=== PATIENT | female | born 1970 | race Caucasian/White ===

== ENCOUNTER 2020-10-08 07:40 | Outpatient (REF) | payer OTHER, SELFPAY ==
[2020-10-08 11:59] LABS: Hemoglobin 13.9 g/dl (12.0-16.0); Imm Gran Abs Auto 0.02 X10*3/uL (0.00-0.03); Imm Gran Pct Auto 0.3 % (0.0-0.4); Mean Corpuscular HGB Conc 32.3 g/dl (31.0-35.0); Mean Corpuscular Hemoglobin 29.4 pg (27.0-33.0); Mean Corpuscular Volume 90.9 fL (80-98); Neutrophils Percent Auto 59.6 % (45-73); Red Blood Count 4.73 X10*6/uL (4.20-5.50)
[2020-10-08 12:01] LABS: Basophils Percent Auto 0.5 % (0-2); Eosinophils Absolute Auto 0.3 X10*3/uL (0.0-0.4); Eosinophils Percent Auto 3.7 % (0-4); Lymphocytes Percent Auto 25.6 % (20-40); Monocytes Absolute Auto 0.8 X10*3/uL (0.1-1.2); Monocytes Percent Auto 10.3 % (2-11); Neutrophils Absolute Auto 4.6 X10*3/uL (2.0-8.3); Platelet Count 141 X10*3/uL (160-400); Red Cell Distribution Width 14.5 % (11.0-16.0); White Blood Count 7.8 X10*3/uL (4.8-10.8)
[2020-10-08 13:18] LABS: Alanine Aminotransferase 23 U/L (0-31); Albumin Level 4.1 g/dL (3.5-5.0); Alkaline Phosphatase 75 U/L (39-117); Anion Gap 11 (12-20); Aspartate Amino Transferase 20 U/L (5-31); Bilirubin Total 0.8 mg/dL (0.0-1.0); Blood Urea Nitrogen 16 mg/dL (9-16); Calcium 9.1 mg/dL (8.4-10.2); Carbon Dioxide 30 mmol/L (22-29); Chloride 106 mmol/L (96-108); Cholesterol 171 mg/dL; Estimated Glomerular Filt Rate > 60; Glucose Fasting 84 mg/dL (60-99); HDL Cholesterol 48 mg/dL; LDL Cholesterol Calculated 106 mg/dl; Lipase 39 U/L (8-78); Potassium 4.2 mmol/L (3.3-5.1); Sodium 143 mmol/L (135-145); TSH reflex Free T4 2.85 uIU/mL (0.32-4.0); Total Protein 7.1 g/dL (6.5-8.0); Triglycerides 89 mg/dL
== END 2020-10-08 07:41 | disposition home or self-care (01) ==
LOC: HO.HMGCLDS 07:40
PROVIDERS: PCP Nurse Practitioner Family; Visit Provider Nurse Practitioner Family
DX: R10.12 Left upper quadrant pain (principal); R53.83 Other fatigue
CPT/HCPCS: 36415; 80053; 80061; 83690; 84443; 85025

== ENCOUNTER 2020-10-20 09:18 | Outpatient (REF) | payer OTHER, SELFPAY ==
--- NOTE | ~2020-10-20 | XR_ITS ---
EXAMINATION: XR ABDOMEN WITH DECUBITUS VIEWS CLINICAL INDICATION: Abdominal distention COMPARISON: None TECHNIQUE: Supine and upright views of the abdomen and pelvis FINDINGS: There are no dilated loops of bowel or air-fluid levels to suggest obstruction. There is no evidence of free air. There is an IUD in the pelvis. There are no calcifications. The right lobe the liver appears prominent measuring 25 cm in length. There are mild degenerative changes of the lower lower lumbar spine and bilateral hips. XR/XR abdomen w decubitus IMPRESSION: No evidence of obstruction.
[2020-10-20 11:45] LABS: Free T4 (Free Thyroxine) 1.01 ng/dL (0.71-1.85)
[2020-10-21 07:58] LABS: HBsAGNum1 0.17 S/CO (0.00-0.99); HIV AB/AG Nonreactive (Nonreactive); HIV Num 1 0.05 S/CO (0.00-0.99); Hepatitis B Surface Antigen Negative (Negative)
[2020-10-21 08:59] LABS: HBc Num1 0.08 S/CO (0.00-0.79); Hepatitis B Core Antibody Nonreactive (Nonreactive); ~HepC Num1 0.21 S/CO (0.00-0.79); ~Hepatitis B Surface Antibody NONREACTIVE (Nonreactive); ~Hepatitis C Antibody Nonreactive (Nonreactive)
[2020-10-21 13:02] LABS: Alpha Fetoprotein 1.8 ng/mL
[2020-10-21 15:51] LABS: Transglutaminase Ab IgG 3 U/mL; Transglutaminase IgA 1 U/mL
[2020-10-21 17:06] LABS: Gliadin Deamidated IgA Ab 5 Units; Gliadin Deamidated IgG Ab 2 Units
[2020-10-22 07:53] LABS: ~Hepatitis A Antibody IgM Nonreactive (Nonreactive)
[2020-10-22 10:17] LABS: Mitochondrial Antibodies NEGATIVE (NEGATIVE)
[2020-10-23 13:31] LABS: Anti Nuclear Antibody Screen NEGATIVE (NEGATIVE)
[2020-10-27 10:37] LABS: Smooth Muscle Antibody <20 U (<20)
== END 2020-10-20 09:19 | disposition home or self-care (01) ==
LOC: HO.LAB 09:18
PROVIDERS: PCP Nurse Practitioner Family; Visit Provider Nurse Practitioner
DX: D69.6 Thrombocytopenia, unspecified (principal); R53.83 Other fatigue; R14.0 Abdominal distension (gaseous); R10.9 Unspecified abdominal pain; K64.1 Second degree hemorrhoids; K59.04 Chronic idiopathic constipation
CPT/HCPCS: 36415; 74021; 82105; 83516; 84439; 86038; 86039; 86255; 86256; 86704; 86706; 86709; 86803; 87340; 87389

== ENCOUNTER → 2020-11-03 15:41 | Outpatient (BNVA) | payer OTHER, SELFPAY | PROVIDERS: PCP Nurse Practitioner Family; Visit Provider Nurse Practitioner ==

== ENCOUNTER 2020-11-19 11:59 | Emergency (ER) | payer OTHER, SELFPAY ==
--- NOTE | ~2020-11-19 | CT_ITS ---
EXAMINATION: CT ANGIOGRAM OF THE CHEST WITH AND WITHOUT CONTRAST (CT PULMONARY ANGIOGRAM FOR PE) CLINICAL INFORMATION: Reason for Exam L sided pleuritic chest pain COMPARISON: Previous chest x-ray from earlier the same day and chest CTA March 2008 TECHNIQUE: Prior to contrast administration, noncontrast localization images were obtained. Subsequently, multidetector volumetric imaging was performed from the thoracic inlet to below the diaphragms following the administration of 70 mL Omnipaque 350 intravenous contrast. No contrast reaction reported Sagittal, coronal, and MIP oblique sagittal reformatted images were obtained on the CT workstation, uploaded to PACS, and reviewed. This CT examination was performed using dose optimization techniques as appropriate, variously including the following: *Automated exposure control *Adjustment of mA and/or kV according to patient size (this includes techniques or standardized protocols for targeted exams where dose is matched to indication/reason for exam; i.e. extremities or head) *Use of iterative reconstruction technique Total exam dose-length product 441 mGy-cm FINDINGS: QUALITY OF STUDY/CONTRAST BOLUS: Satisfactory. PULMONARY ARTERIES: No central or segmental pulmonary emboli. THORACIC AORTA: No aneurysm or dissection. LUNG: There is a small pulmonary nodule adjacent to the minor fissure measuring 4 mm in the right middle lobe axial image 229 series 7 that is stable This may represent a subpleural lymph node. The lungs are otherwise clear. PLEURA: No pleural effusion or pneumothorax. MEDIASTINUM: Normal heart size. No pericardial effusion. No hilar or mediastinal lymphadenopathy. No evidence of septal bowing or right heart strain. CHEST WALL/AXILLA: No axillary or internal mammary lymphadenopathy. OSSEOUS STRUCTURES: No acute or suspicious osseous abnormality. There are degenerative changes of the spine. There are median sternotomy wires. UPPER ABDOMEN: Unremarkable. No reflux of contrast into the hepatic veins to suggest elevated right heart pressures. CT/CT angio chest PE protocol IMPRESSION: No evidence of pulmonary embolism. Stable small 4 mm right middle lobe nodule probably representing a subpleural lymph node. VTE: negative
--- NOTE | ~2020-11-19 | XR_ITS ---
EXAMINATION: XR CHEST CLINICAL INFORMATION: Chest pain COMPARISON: Previous chest x-ray most recent November 2015 TECHNIQUE: Frontal view of the chest was obtained. FINDINGS: The heart does not appear enlarged. There are new median sternotomy wires. Hilar and mediastinal contours are unremarkable. The lungs are clear. There is no pleural effusion or pneumothorax. There is mild curvature of the lower thoracic spine to the right. XR/XR chest 1V IMPRESSION: No evidence for acute disease in the chest.
[2020-11-19 12:44] VITALS: BP 113/74; PULSE 71; RESP 18; TEMP 36.9; O2SAT 97; BMI 35.7
--- NOTE | 2020-11-19 12:48 | ECG_ITS ---
Test Reason : CP Blood Pressure : / mmHG Vent. Rate : 060 BPM Atrial Rate : 060 BPM P-R Int : 146 ms QRS Dur : 088 ms QT Int : 430 ms P-R-T Axes : 002 033 051 degrees QTc Int : 430 ms Normal sinus rhythm Normal ECG When compared with ECG of 23-NOV-2015 11:55, T wave inversion no longer evident in Inferior leads Referred By: Generic ED Physician Electronically Signed By:NAVI AQUINO MD
--- NOTE | 2020-11-19 13:30 | ED.CHESTPAIN ---
HPI - Chest Pain General Chief Complaint: Chest Pain Stated Complaint: chest pain Time Seen by Provider: 11/19/20 13:30 Source: patient Mode of arrival: ambulatory Limitations: no limitations History of Present Illness MD complaint: chest pain Pertinent past history: other (atrial myxoma) Onset (ago): day(s) (several but worse over past few) Timing of current episode: episodic Prior episodes: No Onset: during rest and during exertion Pain location: left chest Pain radiation: left arm Severity: moderate Quality: sharp Relieving factors: nothing Exacerbating factors: inspiration and movement Associated symptoms: dyspnea Treatment prior to arrival: none Related Data Home Medications Medication Instructions Recorded Confirmed amitriptyline 10 mg tablet 10 mg PO DAILY 10/06/20 10/06/20 sennosides 8.6 mg tablet 17.2 mg PO BEDTIME PRN 10/20/20 famotidine 10 mg tablet 20 mg PO DAILY tab 11/03/20 Previous Rx's Medication Instructions Recorded linaclotide 145 mcg capsule 145 mcg PO QAM 30 Days #30 cap 10/20/20 simethicone 180 mg capsule 180 mg PO QID 30 Days #120 cap 10/20/20 cyclobenzaprine 10 mg PO TID PRN #14 tab 11/19/20 lidocaine 1 patch TOPICAL DAILY PRN #10 ea 11/19/20 Allergies Allergy/AdvReac Type Severity Reaction Status Date / Time No Known Allergies Allergy Verified 11/19/20 12:44 [No Known Allergies*] Review of Systems Review of Systems: Constitutional : No Weight loss, No Fever, No Chills ENT/Mouth : No sore throat, No Rhinorrhea Eyes: No Eye Pain, No Swelling Cardiovascular : pos Chest Pain, pos SOB, no Dyspnea on Exertion, No Orthopnea, No Edema, No Palpitations Respiratory : No Cough, No Sputum Gastrointestinal : pos Nausea, No Vomiting, No Diarrhea, No abdominal Pain, No Hematochezia, No Melena Genitourinary : No Dysuria, No Urinary Frequency Musculoskeletal : No joint pain, No Myalgias, No Joint Swelling Skin : No Skin Lesions, No rash Neuro : No Weakness, No Numbness, No Dizziness, No Headache Psych : No Anxiety/Panic, No Depression Heme/Lymph: No Bruising, No Lymphadenopathy Endocrine : No Polyuria, No Polydipsia All other systems reviewed and are negative [facility] Past Medical History Attestation statement: The following information was validated with the patient. Medical History Right sided abdominal pain Surgical History H/O excision of mass (~03/16/16) History of ear surgery (~2015) History of open heart surgery (~03/16/16) Hx of section (~1986) Hx of colonoscopy (~05/2018) Family History Family History Mother CVD (cardiovascular disease) Obesity Father Colon polyp Daughter Thyroid disease Maternal Grandfather Stomach cancer Diabetes Social History Social History Alcohol intake: current Alcohol intake frequency: holidays/special occasions only Smoking Status: Never smoker Smoked in Last 30 Days: No Use of substances other than those prescribed or required for medical reasons: No Advance Directives: Yes Advance Directives Information Provided: Yes Advance Directives on File: No Physical Exam Vital Signs: Vital Signs: Last Vital Signs Temp 98.4 F 11/19/20 15:57 Pulse 63 11/19/20 15:57 Resp 16 11/19/20 15:57 BP 111/65 11/19/20 15:57 Pulse Ox 98 11/19/20 15:57 Body Mass Index 35.7 Appearance: Alert. Oriented X3. No acute distress. Eyes: Pupils equal, round and reactive to light. ENT: Pharynx normal. Neck: Normal inspection. Neck supple. CVS: Normal heart rate and rhythm. Pulses normal. Respiratory: No respiratory distress. Breath sounds normal. Abdomen: Soft and nontender. Skin: Skin warm and dry. Normal skin color. Normal skin turgor. Extremities: No lower extremity edema. No calf ttp Neuro: Oriented X 3. No motor deficit. No sensory deficit. Course Course Course Narrative: trop negative, EKG nonischemic anticipate DC if the patient has negative CTA, signed ot to Dr. Najera pending CTA results MDM - Chest Pain MDM Narrative Medical decision making narrative: 49 yo female with hx of gastrointestinal issues and atrial myxoma comes in today with c/o L sided pleuritic chest pain worsening over the past few days at this time will need labs, troponin x 1, CTA for PE - unable to reproduce - could be MSK could be PE could be pleurisy - seems atypical for ACS dispo per rseults and findings. Lab Data Result diagrams: 11/19/20 14:37 11/19/20 15:22 Labs: Lab Results 11/19/20 11/19/20 11/19/20 Range/Units 14:37 14:37 14:37 WBC 6.6 (4.8-10.8) X10*3/uL RBC 4.48 (4.20-5.50) X10*6/uL Hgb 13.2 (12.0-16.0) g/dl Hct 40.7 (37-47) % MCV 90.8 (80-98) fL MCH 29.5 (27.0-33.0) pg MCHC 32.4 (31.0-35.0) g/dl RDW 14.1 (11.0-16.0) % Plt Count 197 D (160-400) X10*3/uL MPV 12.4 H (9.4-12.3) fL Immature Gran % (Auto) 0.2 (0.0-0.4) % Neut % (Auto) 44.5 L (45-73) % Lymph % (Auto) 36.2 (20-40) % [facility] % (Auto) 14.0 H (2-11) % Eos % (Auto) 4.3 H (0-4) % Baso % (Auto) 0.8 (0-2) % Lymph # (Auto) 2.4 (1.2-4.9) X10*3/uL [facility] # (Auto) 0.9 (0.1-1.2) X10*3/uL Eos # (Auto) 0.3 (0.0-0.4) X10*3/uL Baso # (Auto) 0.1 (0.0-0.2) X10*3/uL Abs Immat Gran (auto) 0.01 (0.00-0.03) X10*3/uL Absolute Neuts (auto) 2.9 (2.0-8.3) X10*3/uL Absolute Nucleated RBC 0.000 (0.0-0.012) X10*3/uL Nucleated RBC % (auto) 0.0 (0.0-0.2) /100WBC Hold Blue Top SEE NOTE Sodium (135-145) mmol/L Potassium (3.3-5.1) mmol/L Chloride (96-108) mmol/L Carbon Dioxide (22-29) mmol/L Anion Gap (12-20) BUN (9-16) mg/dL Creatinine (0.5-1.4) mg/dL Estim Creat Clear Calc Estimated GFR Random Glucose (60-115) mg/dL Calcium (8.4-10.2) mg/dL Total Bilirubin Direct Bilirubin AST ALT Alkaline Phosphatase Troponin I High Sens < 3.5 (<3.5-17.0) ng/L Total Protein Albumin Lipase 11/19/20 11/19/20 Range/Units 14:37 15:22 WBC (4.8-10.8) X10*3/uL RBC (4.20-5.50) X10*6/uL Hgb (12.0-16.0) g/dl Hct (37-47) % MCV (80-98) fL MCH (27.0-33.0) pg MCHC (31.0-35.0) g/dl RDW (11.0-16.0) % Plt Count (160-400) X10*3/uL MPV (9.4-12.3) fL Immature Gran % (Auto) (0.0-0.4) % Neut % (Auto) (45-73) % Lymph % (Auto) (20-40) % [facility] % (Auto) (2-11) % Eos % (Auto) (0-4) % Baso % (Auto) (0-2) % Lymph # (Auto) (1.2-4.9) X10*3/uL [facility] # (Auto) (0.1-1.2) X10*3/uL Eos # (Auto) (0.0-0.4) X10*3/uL Baso # (Auto) (0.0-0.2) X10*3/uL Abs Immat Gran (auto) (0.00-0.03) X10*3/uL Absolute Neuts (auto) (2.0-8.3) X10*3/uL Absolute Nucleated RBC (0.0-0.012) X10*3/uL Nucleated RBC % (auto) (0.0-0.2) /100WBC Hold Blue Top Sodium 144 (135-145) mmol/L Potassium 4.1 (3.3-5.1) mmol/L Chloride 107 (96-108) mmol/L Carbon Dioxide 28 (22-29) mmol/L Anion Gap 13 (12-20) BUN 13 (9-16) mg/dL Creatinine 0.73 (0.5-1.4) mg/dL Estim Creat Clear Calc 117.8 Estimated GFR > 60 Random Glucose 90 (60-115) mg/dL Calcium 9.3 (8.4-10.2) mg/dL Total Bilirubin Cancelled 0.3 Direct Bilirubin Cancelled < 0.2 AST Cancelled 25 ALT Cancelled 53 H Alkaline Phosphatase Cancelled 96 D Troponin I High Sens (<3.5-17.0) ng/L Total Protein Cancelled 7.8 Albumin Cancelled 4.2 Lipase Cancelled 68 ECG Data ECG #1: Attestation: I personally reviewed and interpreted this ECG as follows: ECG interpretation date: 11/19/20 ECG interpretation time: 13:48 Interpretation: Rate: 60 Rhythm: NSR [place]: normal Normal P waves. Normal GEETA. Normal QRS complex. ST T wave : inverted V1, no AGNES qTC: normal prior studies: no sig ischemia The study has been interpreted contemporaneously by me. . Discharge Plan Discharge Clinical Impression: Atypical chest pain Patient Disposition: Home, Self-Care Instructions: Chest Pain (ED) Additional Instructions: return to ED for any worsening symptoms or concerns Prescriptions: New cyclobenzaprine 10 mg tablet 10 mg PO TID PRN (Reason: muscle spasm) Qty: 14 RF: 0 lidocaine 4 % adhesive patch,medicated 1 patch topical DAILY PRN (Reason: pain) Qty: 10 RF: 0 No Action amitriptyline 10 mg tablet 10 mg PO DAILY RF: 0 Linzess 145 mcg capsule 145 mcg PO QAM 30 Days Qty: 30 RF: 4 simethicone 180 mg capsule 180 mg PO QID 30 Days Qty: 120 RF: 4 famotidine [Pepcid AC] 10 mg tablet 20 mg PO DAILY RF: 0 Referrals: Brent Camarena, CIRCULATION DIRECTOR-BC [Primary Care Provider] - 2 days (if not better) Stand Alone Forms: Work/School Release
[2020-11-19 14:42] LABS: MANUAL DIFF FLAG NO
[2020-11-19 14:51] LABS: Basophils Absolute Auto 0.1 X10*3/uL (0.0-0.2); Basophils Percent Auto 0.8 % (0-2); Eosinophils Absolute Auto 0.3 X10*3/uL (0.0-0.4); Eosinophils Percent Auto 4.3 % (0-4); Hematocrit 40.7 % (37-47); Hemoglobin 13.2 g/dl (12.0-16.0); Imm Gran Abs Auto 0.01 X10*3/uL (0.00-0.03); Imm Gran Pct Auto 0.2 % (0.0-0.4); Lymphocytes Absolute Auto 2.4 X10*3/uL (1.2-4.9); Lymphocytes Percent Auto 36.2 % (20-40); Mean Corpuscular HGB Conc 32.4 g/dl (31.0-35.0); Mean Corpuscular Hemoglobin 29.5 pg (27.0-33.0); Mean Corpuscular Volume 90.8 fL (80-98); Mean Platelet Volume 12.4 fL (9.4-12.3); Monocytes Absolute Auto 0.9 X10*3/uL (0.1-1.2); Neutrophils Absolute Auto 2.9 X10*3/uL (2.0-8.3); Neutrophils Percent Auto 44.5 % (45-73); Platelet Count 197 X10*3/uL (160-400); Red Blood Count 4.48 X10*6/uL (4.20-5.50); Red Cell Distribution Width 14.1 % (11.0-16.0); White Blood Count 6.6 X10*3/uL (4.8-10.8)
[2020-11-19 15:14] LABS: Troponin-I High Sensitivity < 3.5 ng/L (<3.5-17.0)
[2020-11-19 15:55] LABS: Alanine Aminotransferase 53 U/L (0-31); Albumin Level 4.2 g/dL (3.5-5.0); Alkaline Phosphatase 96 U/L (39-117); Anion Gap 13 (12-20); Aspartate Amino Transferase 25 U/L (5-31); Bilirubin Direct < 0.2 mg/dL (0.0-0.5); Bilirubin Total 0.3 mg/dL (0.0-1.0); Blood Urea Nitrogen 13 mg/dL (9-16); Calcium 9.3 mg/dL (8.4-10.2); Carbon Dioxide 28 mmol/L (22-29); Chloride 107 mmol/L (96-108); Creatinine Clr Calc Pharmacy 117.8; Estimated Glomerular Filt Rate > 60; Glucose Random 90 mg/dL (60-115); Lipase 68 U/L (8-78); Potassium 4.1 mmol/L (3.3-5.1); Sodium 144 mmol/L (135-145); Total Protein 7.8 g/dL (6.5-8.0)
[2020-11-19 15:57] VITALS: BP 111/65; PULSE 60; PULSE 63; RESP 16; TEMP 36.9; O2SAT 98
[2020-11-19] MEDS: iohexoL 350 MG/ML 100 ML INFUS..BTL IV (16:54)
[2020-11-19] MEDS: Acetaminophen 325 MG TABLET 650 MG PO (17:11)
[2020-11-19 18:00] VITALS: BP 116/68; PULSE 64; RESP 16; TEMP 37.2; O2SAT 97
== END 2020-11-19 18:14 | disposition home or self-care (01) ==
PROVIDERS: Emergency Provider Emergency Medicine; PCP Nurse Practitioner Family
DX: R07.89 Other chest pain (principal)
CPT/HCPCS: 36415; 71045; 71275; 80048; 80076; 83690; 84484; 85025; 93005; 99284; 99285; Q9967

== ENCOUNTER → 2020-11-24 13:35 | Outpatient (BNVA) | payer OTHER, SELFPAY | PROVIDERS: PCP Nurse Practitioner Family; Visit Provider Physician Assistant ==

== ENCOUNTER 2020-12-17 08:01 | Outpatient (REF) | payer OTHER, SELFPAY ==
--- NOTE | ~2020-12-17 | US_ITS ---
EXAMINATION: US ABDOMEN LIMITED WITH LIVER ELASTOGRAPHY CLINICAL INFORMATION: Abdominal distention COMPARISON: Previous abdominal ultrasound most recent April 2018 TECHNIQUE: Real-time imaging of the abdominal viscera. Noninvasive ultrasound liver fibrosis assessment is performed using Harmony ElastPQ point quantification shear wave elastography (pSWE) with a C5-2 MHz transducer. Multiple elastography samples are obtained. FINDINGS: PANCREAS: The visualized pancreatic head and body are normal in appearance. The remainder of the pancreas is obscured from visualization by the overlying bowel gas. LIVER: Normal. The liver demonstrates normal size, contour and echogenicity. No focal lesion or intrahepatic biliary duct dilatation. The right lobe measures 15 cm in length. The left lobe measures 10 cm in length. Portal flow is normal/hepatopedal Shear wave liver elastography median stiffness is 1.4 m/s (reference: normal median stiffness is 1.3 m/s or less). IQR/median stiffness to assess sampling precision is 0.22 (reference: good quality data set is IQR/median stiffness of 0.15 or less). GALLBLADDER: Normal. The gallbladder is physiologically distended without evidence of stones, sludge, polyps, wall thickening or pericholecystic fluid. COMMON BILE DUCT: Normal in caliber measuring 0.7 cm in diameter. RIGHT KIDNEY: Normal. No hydronephrosis. No renal calculi or focal parenchymal lesions. The kidney measures 12.5 cm in maximum dimension. FREE FLUID: None. US/US abdomen padilla w elastography IMPRESSION: 1. Impression: Limited visualization of the tail the pancreas otherwise unremarkable exam. 2. Liver elastography: Limited due to sampling error. Liver stiffness does not suggest evidence of compensated advanced chronic liver disease. REFERENCE: Society of Radiologists in Ultrasound Liver Stiffness Thresholds (2020): LIVER STIFFNESS THRESHOLDS: *Liver Stiffness equal or less than 1.3 m/s: High probability of being normal. *Liver Stiffness less than 1.7 m/s: In the absence of other known clinical signs, rules out compensated advanced chronic liver disease. *Liver Stiffness 1.7-2.1 m/s: Suggestive of compensated advanced chronic liver disease but need further test for confirmation. *Liver Stiffness over 2.1 m/s: Rules in compensated advanced chronic liver disease. *Liver Stiffness over 2.4 m/s: Suggestive of clinically significant portal hypertension. QUALITY OF DATA SET: *IQR/Median value equal or less than 0.15 implies a quality data set. *IQR/Median value over 0.15 implies a poor quality data set. SIGNIFICANT CHANGE FROM PRIOR EXAM: Significant change if liver stiffness measurement is 10% or greater from prior exam. OTHER CONSIDERATIONS: The stage of liver fibrosis may be overestimated in the setting of acute hepatitis, liver inflammation, elevated liver function tests, hepatic vascular congestion, obstructive cholestasis, non-fasting state, and infiltrative diseases such as amyloidosis and lymphoma. In some patients with NAFLD, the liver stiffness thresholds for compensated advanced chronic liver disease may be lower. In causes other than viral hepatitis and NAFLD, liver stiffness thresholds are not well established.
== END 2020-12-17 08:02 | disposition home or self-care (01) ==
LOC: HO.US 08:01
PROVIDERS: Visit Provider Physician Assistant
DX: R10.12 Left upper quadrant pain (principal); R14.0 Abdominal distension (gaseous); R74.8 Abnormal levels of other serum enzymes
CPT/HCPCS: 76705; 76981

== ENCOUNTER 2020-12-27 17:15 | Emergency (ER) | payer OTHER, SELFPAY ==
--- NOTE | ~2020-12-27 | CT_ITS ---
EXAMINATION: CT ABDOMEN AND PELVIS WITHOUT CONTRAST CLINICAL INFORMATION: Mid abdominal pain COMPARISON: Ultrasound abdomen 12/17/2020 TECHNIQUE: Multidetector volumetric imaging was performed from the superior aspect of the liver through the pubic symphysis. Sagittal and coronal reformatted images were obtained on the technologist's workstation. This CT examination was performed using dose optimization techniques as appropriate, variously including the following: *Automated exposure control *Adjustment of mA and/or kV according to patient size (this includes techniques or standardized protocols for targeted exams where dose is matched to indication/reason for exam; i.e. extremities or head) *Use of iterative reconstruction technique DLP: 846 mGy-cm FINDINGS: LUNG BASES: The visualized lung bases are unremarkable. Bibasilar atelectasis is present. LIVER, GALLBLADDER, AND BILIARY TREE: The liver is normal in size, shape, and attenuation. No focal hepatic lesion or biliary ductal dilatation is present. The gallbladder is unremarkable with no evidence of radiopaque gallstones, gallbladder wall thickening, or obvious pericholecystic inflammatory changes. PANCREAS: Unremarkable. SPLEEN: Unremarkable. ADRENAL GLANDS: Unremarkable. KIDNEYS AND URETERS: The kidneys are normal in size, shape, and attenuation. No hydronephrosis, hydroureter, or calculi seen. No perinephric stranding. BLADDER: Unremarkable. GASTROINTESTINAL TRACT: The small and large bowel are unremarkable. A few scattered colonic diverticula are present The appendix is unremarkable. ABDOMINAL WALL: No significant hernia is appreciated. LYMPH NODES: No retroperitoneal lymphadenopathy. Small inguinal lymph nodes are present. VASCULAR: Unremarkable. PELVIC VISCERA: An anteverted uterus is present with an IUD in place. An abnormal adnexal mass or free intraperitoneal fluid is not seen. OSSEOUS STRUCTURES: Degenerative changes are present most marked at L3-S1. CT/CT abdomen pelvis wo con IMPRESSION: No significant abnormality.
[2020-12-27 17:20] VITALS: BP 146/91; PULSE 78; RESP 16; TEMP 36.9; O2SAT 97; BMI 34.0
--- NOTE | 2020-12-27 17:29 | ECG_ITS ---
Test Reason : CHEST PAIN Blood Pressure : / mmHG Vent. Rate : 072 BPM Atrial Rate : 072 BPM P-R Int : 166 ms QRS Dur : 094 ms QT Int : 406 ms P-R-T Axes : 028 042 053 degrees QTc Int : 444 ms Normal sinus rhythm Normal ECG When compared with ECG of 19-NOV-2020 12:56, No significant change was found Referred By: Jesus Najera Electronically Signed By:NAVI AQUINO MD
[2020-12-27 20:00] VITALS: BP 147/85; PULSE 79; RESP 18; O2SAT 99
--- NOTE | 2020-12-27 20:36 | ED.ABDPAIN ---
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 Denies any nausea vomiting or diarrhea no abdominal distension feels abdominal bloated patient is on Linzess amitriptyline and senna tablets for chronic constipation. No fever no chills no urinary symptoms patient been eating okay otherwise Related Data Home Medications Medication Instructions Recorded Confirmed amitriptyline 10 mg tablet 10 mg PO DAILY 10/06/20 11/24/20 sennosides 8.6 mg tablet 17.2 mg PO BEDTIME PRN 10/20/20 11/24/20 Previous Rx's Medication Instructions Recorded linaclotide 145 mcg capsule 145 mcg PO QAM 30 Days #30 cap 10/20/20 tramadol 50 mg PO Q6H PRN #20 tab 12/27/20 Allergies Allergy/AdvReac Type Severity Reaction Status Date / Time No Known Allergies Allergy Verified 11/24/20 13:35 [No Known Allergies*] Review of Systems Review of Systems Constitutional : No Weight loss, No Fever, No Chills ENT/Mouth : No sore throat, No Rhinorrhea Eyes: No Eye Pain, No Swelling Cardiovascular : No Chest Pain, no palpitations Respiratory : No Cough, No Sputum, no shortness of breath Gastrointestinal : no Nausea, No Vomiting, No Diarrhea, + abdominal Pain, no black stools Genitourinary : No Dysuria, No Urinary Frequency Musculoskeletal : No joint pain, No Myalgias, No Joint Swelling Skin : No Skin Lesions, No rash Neuro : No Weakness, No Numbness, No Dizziness, No Headache Psych : No Anxiety/Panic, No Depression Heme/Lymph: No Bruising, No Lymphadenopathy Endocrine : No Polyuria, No Polydipsia All other systems reviewed and are negative Physical Exam Vital Signs: Vital Signs: Last Vital Signs Temp 98.5 F 12/27/20 17:20 Pulse 79 12/27/20 20:00 Resp 18 12/27/20 20:00 BP 147/85 H 12/27/20 20:00 Pulse Ox 99 12/27/20 20:00 Body Mass Index 34.0 Appearance: Alert. Oriented X3. No acute distress. Eyes: PERRLA, No Nystagmus ENT: Pharynx normal. Oral Mucosa moist Neck: Normal inspection. Neck supple. CVS: Normal heart rate and rhythm. Pulses normal. Respiratory: No respiratory distress. Equal air entry bilateral, no wheezing/rales/rhonchi Abdomen: Soft, mild tenderness left upper quadrant and epigastric area no rebound tenderness or guarding Bowel sounds are present, no mass palpable, no CVA tenderness Skin: Skin warm and dry. Normal skin color. Normal skin turgor. Extremities: No lower extremity edema. No calf tenderness Neuro: Oriented X 3. No motor deficit. No sensory deficit. MDM - Abdominal Pain MDM Narrative Medical decision making narrative: Patient with chronic abdominal pain CT scan negative for any acute pathology labs are stable symptoms likely from IBS patient advised to follow-up with her electric melt operator advised to take tramadol along with her other medications Medical Records Attestation: I reviewed the patient's medical records. Lab Data Attestation: I reviewed the patient's lab results. Result diagrams: 12/27/20 21:25 12/27/20 22:00 Labs: Lab Results 12/27/20 12/27/20 Range/Units 21:25 22:00 WBC 9.8 (4.8-10.8) X10*3/uL RBC 4.69 (4.20-5.50) X10*6/uL Hgb 14.2 (12.0-16.0) g/dl Hct 42.3 (37-47) % MCV 90.2 (80-98) fL MCH 30.3 (27.0-33.0) pg MCHC 33.6 (31.0-35.0) g/dl RDW 14.0 (11.0-16.0) % Plt Count 157 L (160-400) X10*3/uL MPV 12.5 H (9.4-12.3) fL Immature Gran % (Auto) 0.2 (0.0-0.4) % Neut % (Auto) 65.4 (45-73) % Lymph % (Auto) 21.4 (20-40) % [place] % (Auto) 9.9 (2-11) % Eos % (Auto) 2.7 (0-4) % Baso % (Auto) 0.4 (0-2) % Lymph # (Auto) 2.1 (1.2-4.9) X10*3/uL [place] # (Auto) 1.0 (0.1-1.2) X10*3/uL Eos # (Auto) 0.3 (0.0-0.4) X10*3/uL Baso # (Auto) 0.0 (0.0-0.2) X10*3/uL Abs Immat Gran (auto) 0.02 (0.00-0.03) X10*3/uL Absolute Neuts (auto) 6.4 (2.0-8.3) X10*3/uL Absolute Nucleated RBC 0.000 (0.0-0.012) X10*3/uL Nucleated RBC % (auto) 0.0 (0.0-0.2) /100WBC Sodium 141 (135-145) mmol/L Potassium 4.0 (3.3-5.1) mmol/L Chloride 109 H (96-108) mmol/L Carbon Dioxide 25 (22-29) mmol/L Anion Gap 11 L (12-20) BUN 22 H D (9-16) mg/dL Creatinine 0.78 (0.5-1.4) mg/dL Estim Creat Clear Calc 109.7 Estimated GFR > 60 Random Glucose 101 (60-115) mg/dL Calcium 9.1 (8.4-10.2) mg/dL Total Bilirubin 0.5 (0.0-1.0) mg/dL Direct Bilirubin < 0.2 (0.0-0.5) mg/dL AST 15 (5-31) U/L ALT 15 (0-31) U/L Alkaline Phosphatase 78 (39-117) U/L Total Protein 7.0 (6.5-8.0) g/dL Albumin 3.9 (3.5-5.0) g/dL Lipase 56 (8-78) U/L Discharge Plan Discharge Clinical Impression: Abdominal pain Patient Disposition: Home, Self-Care Instructions: Abdominal Pain (ED) Additional Instructions: Etiology of your pain is not very clear likely IBS. Take tramadol for severe pain. Follow-up with your electric melt operator Prescriptions: New tramadol 50 mg tablet 50 mg PO Q6H PRN (Reason: pain) Qty: 20 RF: 0 No Action amitriptyline 10 mg tablet 10 mg PO DAILY RF: 0 sennosides 8.6 mg tablet 17.2 mg PO BEDTIME PRNRF: 0 Linzess 145 mcg capsule 145 mcg PO QAM 30 Days Qty: 30 RF: 4 Stand Alone Forms: Work/School Release Interventions: ED Discharge Assessment Last Done: 12/27/20 23:35 Discharge Date/Time: 12/27/20 23:36 [facility] Past Medical History Medical History Right sided abdominal pain Surgical History H/O excision of mass (~03/16/16) History of ear surgery (~2015) History of open heart surgery (~03/16/16) Hx of section (~1986) Hx of colonoscopy (~05/2018) Family History Family History Mother CVD (cardiovascular disease) Obesity Father Colon polyp Daughter Thyroid disease Maternal Grandfather Stomach cancer Diabetes Social History Social History Alcohol intake: current Alcohol intake frequency: a few times a month Alcohol type: beer Smoked in Last 30 Days: No Use of substances other than those prescribed or required for medical reasons: No Advance Directives: No Advance Directives Information Provided: No Patient : No
[2020-12-27] MEDS: Morphine Sulfate 4 MG/ML CARTRIDGE IVPUSH (21:26)
[2020-12-27] MEDS: ondansetron HCL 4 MG/2 ML VIAL IVPUSH (21:26)
[2020-12-27 21:32] LABS: MANUAL DIFF FLAG NO
[2020-12-27 21:38] LABS: Basophils Percent Auto 0.4 % (0-2); Eosinophils Absolute Auto 0.3 X10*3/uL (0.0-0.4); Eosinophils Percent Auto 2.7 % (0-4); Hematocrit 42.3 % (37-47); Hemoglobin 14.2 g/dl (12.0-16.0); Imm Gran Abs Auto 0.02 X10*3/uL (0.00-0.03); Imm Gran Pct Auto 0.2 % (0.0-0.4); Lymphocytes Absolute Auto 2.1 X10*3/uL (1.2-4.9); Lymphocytes Percent Auto 21.4 % (20-40); Mean Corpuscular HGB Conc 33.6 g/dl (31.0-35.0); Mean Corpuscular Hemoglobin 30.3 pg (27.0-33.0); Mean Corpuscular Volume 90.2 fL (80-98); Mean Platelet Volume 12.5 fL (9.4-12.3); Monocytes Percent Auto 9.9 % (2-11); Neutrophils Absolute Auto 6.4 X10*3/uL (2.0-8.3); Neutrophils Percent Auto 65.4 % (45-73); Platelet Count 157 X10*3/uL (160-400); Red Blood Count 4.69 X10*6/uL (4.20-5.50); White Blood Count 9.8 X10*3/uL (4.8-10.8)
[2020-12-27 22:38] LABS: Alanine Aminotransferase 15 U/L (0-31); Albumin Level 3.9 g/dL (3.5-5.0); Alkaline Phosphatase 78 U/L (39-117); Anion Gap 11 (12-20); Aspartate Amino Transferase 15 U/L (5-31); Bilirubin Direct < 0.2 mg/dL (0.0-0.5); Bilirubin Total 0.5 mg/dL (0.0-1.0); Blood Urea Nitrogen 22 mg/dL (9-16); Calcium 9.1 mg/dL (8.4-10.2); Carbon Dioxide 25 mmol/L (22-29); Chloride 109 mmol/L (96-108); Creatinine Clr Calc Pharmacy 109.7; Estimated Glomerular Filt Rate > 60; Glucose Random 101 mg/dL (60-115); Lipase 56 U/L (8-78); Sodium 141 mmol/L (135-145)
== END 2020-12-27 23:36 | disposition home or self-care (01) ==
PROVIDERS: Emergency Provider Internal Medicine; PCP Nurse Practitioner Family
DX: R10.12 Left upper quadrant pain (principal); Z79.899 Other long term (current) drug therapy
CPT/HCPCS: 36415; 74176; 80048; 80076; 83690; 85025; 93005; 96374; 96375; 99284; J2270; J2405

== ENCOUNTER → 2020-12-28 13:13 | Outpatient (BNVA) | payer OTHER, SELFPAY | PROVIDERS: PCP Nurse Practitioner Family; Referring Provider Nurse Practitioner Family; Visit Provider Nurse Practitioner Family ==

== ENCOUNTER → 2021-01-05 07:57 | Outpatient (REF) | payer OTHER, SELFPAY ==
--- NOTE | 2021-01-05 08:02 | CA_ITS ---
Acquisition Time: 2021-01-05 09:08:27 Total Exercise Time: 00:08:30 Test Indications: Chest Pain Medications: AMITRIPTYLLINE LINZESS TRAMADOL Protocol: CANDE Max HR: 148 BPM 87% of Pred: 169 BPM Max BP: 142/078 mmHG Max Work Load: 10.1 METS Exercise stress test with exercise 8 min 30 sec of Cande protocol, without anginal symptoms, without arrythmia, with normotensive response to exercise, without EKG changes meeting criteria for ischemia, with nonspecific ST abnormality without depression 4- 6 min recovery. Test reviewed with Dr Rojas. Referred By: Vicky Giordano Overread By: VICKY GIORDANO
--- NOTE | 2021-01-05 08:02 | CA_ITS ---
Transthoracic Echocardiogram Patient (Last, First, Middle): Judy Carpenter A Gender: Female Date of : 1970 Age: 50 Procedure Date: 01/05/2021 Procedure Type: Transthoracic Echocardiogram Location: OP Height: 175.26 cm Weight: 106.6 kg BSA: 2.21 m2 Heart Rate: bpm BP: 130 / 84 mmHg Lumber Tallier: MEENU Referring MD: Vicky Giordano RANCH RIDERWillem Symptoms: R53.83 - Other fatigue Study Quality: Fair ECG Rhythm: Sinus Conclusions: - The left ventricular systolic function is normal. The visually estimated ejection fraction is between 60-65%. - There is mild mitral valve regurgitation. Findings Left Ventricle Normal left ventricular cavity size. There is normal left ventricular wall thickness. The left ventricular systolic function is normal. The visually estimated ejection fraction is between 60-65%. There is no evidence of regional wall motion abnormalities. Diastolic function is normal for age. Right Ventricle Normal right ventricular cavity size and systolic function. Atria Both atria are normal in size. Aortic Valve The aortic valve was not well visualized. The aortic valve structure and function is likely normal. There is no aortic valve stenosis. There is no aortic valve regurgitation. Mitral Valve The mitral valve appears normal. There is mild mitral valve regurgitation. There is no mitral valve stenosis. Pulmonic Valve The pulmonic valve was not well visualized. Tricuspid Valve There is trace tricuspid valve regurgitation. The pulmonary artery systolic pressure is normal. Great Vessels The aortic annulus, sinuses of valsalva, asc aorta, and aortic arch are normal in size. Venous The inferior vena cava is normal in size and collapses greater than 50% with inspiration. Pericardium/Pleural There is no evidence of pericardial effusion. Prior Study Comparison No significant change compared to prior study dated: 05/26/2019. Measurements M-Mode Liner Measurements Normals - Women/Men AOV Cusps: 1.90 1.5-2.6 cm/m2 2D Linear Measurements IVSd: 0.74 0.6-0.9/0.6-1.0 cm LVIDd: 5.04 3.9-5.3/4.2-5.9 cm LVIDd Index: 2.28 2.4-3.2/2.2-3.1 cm/m2 LVIDs: 3.69 2.0-3.6 cm LVPWd: 0.78 0.7-1.1 cm Ao Root: 2.70 2.1-3.5 cm LA Diam: 3.90 2.7-3.8/3.0-4.0 cm LAIDs Index: 1.76 1.5-2.3 cm/m2 LV Mass: 161.25 67-162/88-224 g LV Mass Index: 72.97 43-95/49-115 g/m2 LVOT Diam: 2.00 3.0+(-)1.3 cm 2D Systolic Function EF 4C: 65.20 >55% EF 2C: 64.10 >55% EF BiP: 64.60 >55% Mitral Valve MV Pk E: 1.11 MV PK A: 0.48 MV Decel Time: 242.00 E/A: 2.30 E'Lateral: 15.10 E'Medial: 8.49 E/E' Med: 13.10 E/E' Lat: 7.40 PHT: 71.00 MVA PHT: 3.10 Decel [place]: 4.60 Aortic Valve AoV Pk Rik: 1.48 AoV Mn Rik: 1.11 AoV VTI: 0.38 AoV Pk Grad: 9.00 Aov Mn Grad: 5.00 SHALINI Cont.VTI: 2.13 LVOT LVOT Pk Rik: 1.04 LVOT Mn Rik: 0.77 LVOT VTI: 0.26 LVOT Pk Grad: 4.00 LVOT Mn Grad: 3.00 LVOT Diam: 2.00 LVOT Area: 3.14 Diastolic Function MV Pk E: 1.11 MV Pk A: 0.48 E/A: 2.30 E'Medial: 8.49 E/E' Med: 13.10 E' Laterial: 15.10 E/E' Lat: 7.40 Tricuspid Valve TR Pk Rik: 2.21 TR Pk Grad: 20.00 RA Press: 3.00 RVSP: 23.00 Great Vessels Aorta Ao Root-2D: 2.70 2.0-3.7 cm Ao Asc: 3.30 2.1-3.4 cm Ao Arch: 2.80 Pulmonary Valve PV Pk Rik: 1.14 Peak PV Grad: 5.00 Updated in Other Vendor System with Status of Final Ruslan Rojas MD electronically signed on 01/07/2021 1:48:08 PM with status of Final
--- NOTE | 2021-01-05 08:30 | ECG_ITS ---
Hook-up date: 2021-01-05 10:03:00 Duration: 27:04:00 Test Indications: palpitations Medications: [id number] QRS complexes 39 Ventricular ectopics which represent <1 % of total QRS comp. 58 Supraventricular ectopics which represent <1 % of total QRS comp. * Paced QRS complexs which represent % of total QRS comp. VENTRICULAR ECTOPY 39 Isolated 0 Bigeminal Cycles 0 Couplets 0 Runs 0 Beats in Runs * Beats LONGEST at * BPM at :: -- * Beats FASTEST at * BPM at :: -- SUPRAVENTRICULAR ECTOPY 46 Isolated 0 Couplets 2 Runs 12 Beats in Runs 6 Beats LONGEST at 66 BPM at 00:14:24 2021-01-06 6 Beats FASTEST at 168 BPM at 09:49:02 2021-01-06 HEART RATES 48 MIN at 02:56:31 2021-01-06 70 AVG 114 MAX at 10:03:39 2021-01-05 LONGEST RR 1.4320 secs at 02:56:25 2021-01-06 S-T LEVELS Channel 1 - 128 mm at 10:03:00 2021-01-05 - 128 mm at 10:03:00 2021-01-05 Channel 2 - 128 mm at 10:03:00 2021-01-05 - 128 mm at 10:03:00 2021-01-05 Channel 3 - 128 mm at 02:92:21 -- - 128 mm at 02:92:21 Underlying rhythm is sinus; Average ventricular rate 70/min; range 48-114/min; Rare supraventricular ectopy with 2 short runs, upto 6 beats; Rare ventricular ectopy; No sustained arrhythmias; Palpitation in patient diary correspond to sinus rhythm. Referred By: Vicky Giordano Overread By: MILIND COX
== END ==
LOC: HO.CARD 07:57
PROVIDERS: Visit Provider Nurse Practitioner Family
DX: R07.89 Other chest pain (principal); R00.2 Palpitations; R53.83 Other fatigue; Z98.890 Other specified postprocedural states
CPT/HCPCS: 93017; 93225; 93226; 93306

== ENCOUNTER → 2021-01-25 13:58 | Outpatient (BNVA) | payer OTHER, SELFPAY | PROVIDERS: Visit Provider Nurse Practitioner ==

== ENCOUNTER → 2021-01-28 12:48 | Outpatient (REF) | payer OTHER, SELFPAY ==
--- NOTE | ~2021-01-28 | NM_ITS ---
EXAMINATION: NUCLEAR MEDICINE HEPATOBILIARY SCAN WITH PHARMACY. CLINICAL INFORMATION: Right upper quadrant pain COMPARISON: CT abdomen and pelvis exam 12/31/2020 TECHNIQUE: Following intravenous administration of 5 mCi of 90 9M technetium mebrofenin, imaging over right arm was obtained after 60 minutes. At 60 minutes oral Ensure was administered and further imaging was obtained up to additional 60 minutes. FINDINGS: There is normal hepatic uptake without any focal defects. Common bile duct is visualized by 60 minutes. Small bowel is visualized by 20 minutes. Gallbladder is visualized at 40 minutes. Post CCK gallbladder ejection fraction at 20 minutes is 37% and by 60 minutes is 49%. NM/NM hepatobiliary wo pharm IMPRESSION: Abnormal gallbladder ejection fraction of 49% by 60 minutes consistent with dyskinetic gallbladder. Normal hepatic uptake. Patent CBD and cystic duct.
== END ==
LOC: HO.NUCMED 12:48
PROVIDERS: Visit Provider Nurse Practitioner
DX: R10.11 Right upper quadrant pain (principal)
CPT/HCPCS: 78226; A9537

== ENCOUNTER 2021-02-01 08:45 | Outpatient (REF) | payer OTHER, SELFPAY ==
[2021-02-01 10:13] LABS: C Reactive Protein 0.17 mg/dL (< or = 0.50)
== END 2021-02-01 08:46 | disposition home or self-care (01) ==
LOC: HO.LAB 08:45
PROVIDERS: Absent Provider Nurse Practitioner; PCP Nurse Practitioner Family; Referring Provider Nurse Practitioner Family; Visit Provider Internal Medicine
DX: R10.12 Left upper quadrant pain (principal); D15.1 Benign neoplasm of heart; I49.3 Ventricular premature depolarization; I49.1 Atrial premature depolarization; G47.33 Obstructive sleep apnea (adult) (pediatric)
CPT/HCPCS: 36415; 86140

== ENCOUNTER 2021-02-16 13:39 | Day surgery (SDC) | payer OTHER, SELFPAY ==
--- NOTE | 2021-02-15 11:53 | HO.ANESPROP2 ---
Documented by User: Dedra Trujillo 02/15/21 12:04 HPI - Anesthesia Eval Consult details Narrative: 50yo F for Upper Endoscopy Post-cardiac testing office visit 01/2021 (palpitations, h/o atrial myxoma): stable for 2 year f/u [facility] Active Problems Active Problems: All Active Problems (Updated 02/08/21 @ 12:30 by LINA Trejo) Acalculous cholecystitis (Acute) JUAN (obstructive sleep apnea) (Acute) PAC (premature atrial contraction) (Acute) PVC (premature ventricular contraction) (Acute) Atrial myxoma (Acute) RUQ abdominal pain (Acute) Family history of polyps in the colon (Acute) Depression (Acute) H/O excision of mass (Acute ~03/16/16) Chest discomfort (Acute) Palpitation (Acute) Abdominal bloating (Acute) Chronic idiopathic constipation (Acute) Grade II hemorrhoids (Acute) Thrombocytopenia (Acute) Fatigue (Acute) LUQ pain (Acute) Past Medical History Medical History (Updated 02/15/21 @ 11:57 by Dedra Trujillo) Atrial myxoma JUAN (obstructive sleep apnea) PVC (premature ventricular contraction) Right sided abdominal pain Thrombocytopenia Family History Family History Mother CVD (cardiovascular disease) Obesity Father Colon polyp Daughter Thyroid disease Maternal Grandfather Stomach cancer Diabetes Surgical History Surgical History H/O excision of mass (~03/16/16) History of ear surgery (~2015) History of open heart surgery (~03/16/16) Hx of section (~1986) Hx of colonoscopy (~05/2018) Social History Social History Housing: House Alcohol intake: current Alcohol intake frequency: a few times a month Alcohol type: beer Patient Tobacco Use Status: Never used Tobacco e-Cigarette/Vaping Use: Never Used Second Hand Smoke Exposure: No Use of substances other than those prescribed or required for medical reasons: No Are you DNR?: No Advance Directives: No Advance Directives Information Provided: Yes Current occupational status: employed Meds Allergies Allergy/AdvReac Type Severity Reaction Status Date / Time No Known Allergies Allergy Verified 02/01/21 08:54 [No Known Allergies*] Exam Exam Date and Time: February 15, 2021 1153 Pertinent Lab Results Pertinent Lab Results: Laboratory Tests 12/27/20 12/27/20 21:25 22:00 WBC 9.8 Hgb 14.2 Hct 42.3 Plt Count 157 L Sodium 141 Potassium 4.0 Chloride 109 H Carbon Dioxide 25 BUN 22 H D Creatinine 0.78 Narrative Narrative: Holter 12/2020 Underlying rhythm is sinus; Average ventricular rate 70/min; range 48-114/min; Rare supraventricular ectopy with 2 short runs, upto 6 beats; Rare ventricular ectopy; No sustained arrhythmias; Palpitation in patient diary correspond to sinus rhythm. EKG 12/2020 Vent. Rate : 072 BPM Atrial Rate : 072 BPM P-R Int : 166 ms QRS Dur : 094 ms QT Int : 406 ms P-R-T Axes : 028 042 053 degrees QTc Int : 444 ms Normal sinus rhythm Normal ECG When compared with ECG of 19-NOV-2020 12:56, No significant change was found ECHO 12/2020 Conclusions: - The left ventricular systolic function is normal. The visually estimated ejection fraction is between 60-65%. - There is mild mitral valve regurgitation. Stress 12/2020 Protocol: EFRAIN Max HR: 148 BPM 87% of Pred: 169 BPM Max BP: 142/078 mmHG Max Work Load: 10.1 METS Exercise stress test with exercise 8 min 30 sec of Efrain protocol, without anginal symptoms, without arrythmia, with normotensive response to exercise, without EKG changes meeting criteria for ischemia, with nonspecific ST abnormality without depression 4- 6 min recovery. Test reviewed with Dr Rojas. Assessment and Plan Assessment Anesthesia Assessment: Chart Reviewed Documented by User: Julianna Wyatt 02/16/21 14:18 [facility] Past Medical History Medical History (Updated 02/15/21 @ 11:57 by Dedra Trujillo) Atrial myxoma JUAN (obstructive sleep apnea) PVC (premature ventricular contraction) Right sided abdominal pain Thrombocytopenia Family History Family History Mother CVD (cardiovascular disease) Obesity Father Colon polyp Daughter Thyroid disease Maternal Grandfather Stomach cancer Diabetes Surgical History Surgical History H/O excision of mass (~03/16/16) History of ear surgery (~2015) History of open heart surgery (~03/16/16) Hx of section (~1986) Hx of colonoscopy (~05/2018) Social History Social History Housing: House Alcohol intake: current Alcohol intake frequency: a few times a month Alcohol type: beer Patient Tobacco Use Status: Never used Tobacco e-Cigarette/Vaping Use: Never Used Second Hand Smoke Exposure: No Use of substances other than those prescribed or required for medical reasons: No Are you DNR?: No Advance Directives: No Advance Directives Information Provided: Yes Current occupational status: employed Meds Allergies Allergy/AdvReac Type Severity Reaction Status Date / Time No Known Allergies Allergy Verified 02/01/21 08:54 [No Known Allergies*] Exam Airway Mallampati Class: I TM Dist: >3cm Neck ROM: Full Heart: rrr Lungs: cta Assessment and Plan Assessment Anesthesia Assessment: Anesthesia Plan Discussed and Chart Reviewed Final Anesthetic Review NPO: Yes ASA Class: II Final Preanesthetic Review: No Changes in Pt Med Stat, Meds/Allgs Chart Reviewed and Consent Obtained/Reviewed Patient Risk: Intermediate Procedure Risk: Intermediate Anesthetic Plan Anesthetic Plan: MAC: Disposition: Standard PACU
[2021-02-16 13:52] VITALS: BP 129/82; PULSE 61; RESP 16; TEMP 36.2; O2SAT 96; BMI 34.7
[2021-02-16] MEDS: Lactated Ringers 1,000 ML 100 ML IVCONT (14:01)
--- NOTE | 2021-02-16 14:10 | MHC.SHP ---
Pre-Procedural Eval Section A Date of Service: 02/16/21 Section B Chief Complaint: abd pain Relevant Family History (Specify if Yes): No Relevant Social History: None Present Medications: see Short Stay Collaborative assessment Medical History: Significant History (Atrial myxoma JUAN (obstructive sleep apnea) PVC (premature ventricular contraction) Right sided abdominal pain Thrombocytopenia) History of Previous Operations: Relevant previous surgery/procedure and date(s) (H/O excision of mass (~03/16/16) History of ear surgery (~2015) History of open heart surgery (~03/16/16) Hx of section (~1986) Hx of colonoscopy (~05/2018)) Allergies: Allergies Allergy/AdvReac Type Severity Reaction Status Date / Time No Known Allergies Allergy Verified 02/01/21 08:54 [No Known Allergies*] Review of Systems Sugical H&P ROS: Negative: Constitution, Cardiovascular, Respiratory, Neurological, Psychiatric, Hem-Onc, Allergic/Immunologic, Gastrointestinal, Genitourinary, Musculoskeletal, Integumentary, Endocrine and Eyes/Ears/Nose/Throat Exam Surgical H&P Exam: Normal: HEENT, Normal: Heart, Normal: Lungs, Normal: Extremities, Normal: Abdomen, Normal: Skin and Normal: Neurological Plan Diagnosis/Plan: Unchanged I have reviewed the history and physical and performed a pertinent physical examination on my patient. No changes have occurred unless specified.
--- NOTE | 2021-02-16 14:11 | PM.OP ---
Brief Operative Note Date of Service: 02/16/21 Pre-op diagnosis: left abdo pain Post-op diagnosis: same Procedure: see op note Surgeon: Martha Grijalva MD Anesthesia: MAC Was an Software Tools Developer used for this Procedure?: No Estimated blood loss (mL): 0 Condition: stable Disposition: PACU
--- NOTE | 2021-02-16 14:27 | W.PM.OPN ---
Operative Note Operative Note Date of Service: 02/16/21 Narrative: Procedure Description: EGD FLEXIBLE TRANSORAL UPPER GASTROINTESTINAL ENDOSCOPY UPPER ENDOSCOPY Consent: Indications for the procedure and potential complications of bleeding, perforation, reaction to medications and missed diagnosis were discussed with the patient and informed consent was obtained. Instrument: Olympus GIF H 190 J mid size upper endoscope Monitoring: Vital signs and clinical assessment, continuous EKG monitoring, Pulse oximetry, Carbon Dioxide monitoring and blood pressure monitoring were done throughout the procedure. Procedure: The patient was placed in the left lateral decubitis position and pre-procedure medications were administered and a bite block was placed. The endoscope was inserted into the mouth and advanced under direct vision to the third part of duodenum. A careful inspection was made as the upper endoscope was withdrawn including a retroflexed examination of the proximal stomach; Findings and interventions are described below. Findings: Larynx:normal Esophagus: GE junction at 40 cm, diaphragm hiatus at 40 cm, mild esophagitis bx taken from GEJ and random esophagus. Stomach: Patchy gastric erythema. Biopsies were obtained. Grade 2 flap valve on retroflexed examination of the cardia. Duodenum: Mild bulbar duodenitis and normal descending duodenum, bx taken Intervention: Biopsies as noted above Impression/Findings: gastritis duodenitis esophagitis PLAN: If neg for H pylori then trial of PPI, if sx persist then GES to r/o gastroparesis
[2021-02-16 14:55] VITALS: BP 121/75; PULSE 63; RESP 14; TEMP 36.2; O2SAT 98
[2021-02-16 15:10] VITALS: BP 129/80; PULSE 59; RESP 16; O2SAT 98
[2021-02-16 15:15] VITALS: PULSE 54; RESP 16; O2SAT 100
[2021-02-16 15:25] VITALS: BP 127/76; PULSE 56; RESP 16; O2SAT 99
[2021-02-16 15:40] VITALS: BP 124/74; PULSE 63; RESP 16; O2SAT 98
--- NOTE | 2021-02-16 16:14 | PC.NURSE ---
1615 PT WAS GIVEN 4MG ZOFRAN AT 1525 BY THIS RN , WRIITTEN ORDER WAS FAXED TO PHARMACY. MED NOT IN MAR BY PHARMACY UNTIL 1545, THIS RN DOCUMENTED AT 1553 AND ATTEMPTED TO EDIT FOR TIME UNABLE TO DO SO, CALL TO PHARMACY, THEY ARE UNABLE TO DO ANYTHING CALL TO [facility], LEFT MESSAGE WITH PERSON WHO OVERSEES THIS COMPUTER PROGRAM.
== END 2021-02-16 16:10 | disposition home or self-care (01) ==
PROVIDERS: PCP Nurse Practitioner Family; Visit Provider Internal Medicine Gastroenterology
PROC: 0DJ08ZZ Inspection of Upper Intestinal Tract, Via Natural or Artificial Opening Endoscopic (ICD-10-PCS; CPT 43235; principal; 2021-02-16 14:40)
DX: K20.80 Other esophagitis without bleeding (principal); K29.70 Gastritis, unspecified, without bleeding; K29.80 Duodenitis without bleeding; K44.9 Diaphragmatic hernia without obstruction or gangrene; K59.04 Chronic idiopathic constipation; D69.6 Thrombocytopenia, unspecified; R53.83 Other fatigue
CPT/HCPCS: 43239; 88305; 88342; J2405

== ENCOUNTER → 2021-03-09 14:25 | Outpatient (BNVA) | payer OTHER, SELFPAY | PROVIDERS: PCP Nurse Practitioner Family; Referring Provider Nurse Practitioner; Visit Provider Surgery ==

== ENCOUNTER → 2021-03-15 14:16 | Outpatient (BNVA) | payer OTHER, SELFPAY | PROVIDERS: PCP Nurse Practitioner Family; Visit Provider Nurse Practitioner ==

== ENCOUNTER → 2021-04-19 07:43 | Outpatient (REF) | payer OTHER, SELFPAY ==
--- NOTE | ~2021-04-19 | NM_ITS ---
EXAMINATION: RADIONUCLIDE SOLID FOOD GASTRIC EMPTYING 4-HOUR STUDY CLINICAL INFORMATION: Left upper quadrant pain. COMPARISON: No previous gastric emptying study is available for comparison. TECHNIQUE: A standard meal consisting of 4 oz of Egg Beaters brand equivalent tagged with 890 microcuries Tc-99m Sulfur Colloid, 8 oz water and 2 slices of toast with jelly was administered orally to the patient. Images were obtained using a dual head gamma camera in the anterior and posterior projections over of the stomach immediately post ingestion and at hourly intervals up to 4 hours post ingestion. The anterior and posterior counts at each time interval were averaged using the geometric mean and expressed as percentage of the immediate post ingestion counts. FINDINGS: There is good visualization of activity in the stomach immediately post ingestion. As the study progresses, there is some progressively increasing small bowel activity visualized, but at the end of the study there is moderately severe abnormal retention of activity in the stomach. Retention in the stomach at each time interval was: 1 hour 78% (normal 37%-90%) 2 hours 38% (normal 30%-60%) 3 hours 45% 4 hours 31% (normal 0%-10%) NM/NM gastric emptying study IMPRESSION: Abnormal study. There is moderately severe abnormal retention of solid food in the stomach at 4 hours.
== END ==
LOC: HO.NUCMED 07:43
PROVIDERS: Visit Provider Nurse Practitioner
DX: R10.12 Left upper quadrant pain (principal); R91.1 Solitary pulmonary nodule
CPT/HCPCS: 78264; A9541

== ENCOUNTER → 2021-04-25 15:37 | Outpatient (BNVA) | payer OTHER, SELFPAY | PROVIDERS: PCP Nurse Practitioner Family; Visit Provider Nurse Practitioner ==

== ENCOUNTER → 2021-05-23 16:20 | Outpatient (BNVA) | payer OTHER, SELFPAY | PROVIDERS: PCP Nurse Practitioner Family; Visit Provider Nurse Practitioner ==

== ENCOUNTER → 2021-11-28 11:47 | Outpatient (BNVA) | payer OTHER, SELFPAY | PROVIDERS: PCP Nurse Practitioner Family; Referring Provider Nurse Practitioner Family; Visit Provider Internal Medicine Gastroenterology | DX: Z13.89 Encounter for screening for other disorder (principal) ==

== ENCOUNTER 2022-01-02 07:49 | Outpatient (REF) | payer OTHER, SELFPAY ==
[2022-01-02 08:05] LABS: MANUAL DIFF FLAG NO
[2022-01-02 08:43] LABS: Basophils Absolute Auto 0.1 X10*3/uL (0.0-0.2); Basophils Percent Auto 0.8 % (0-2); Eosinophils Absolute Auto 0.2 X10*3/uL (0.0-0.4); Eosinophils Percent Auto 3.6 % (0-4); Hematocrit 43.7 % (37.0-47.0); Hemoglobin 14.3 g/dl (12.0-16.0); Imm Gran Abs Auto 0.01 X10*3/uL (0.00-0.03); Imm Gran Pct Auto 0.2 % (0.0-0.4); Lymphocytes Absolute Auto 1.9 X10*3/uL (1.2-4.9); Lymphocytes Percent Auto 30.1 % (20-40); Mean Corpuscular HGB Conc 32.7 g/dl (31.0-35.0); Mean Corpuscular Hemoglobin 29.5 pg (27.0-33.0); Mean Corpuscular Volume 90.1 fL (80.0-98.0); Monocytes Absolute Auto 0.7 X10*3/uL (0.1-1.2); Monocytes Percent Auto 10.8 % (2-11); Neutrophils Absolute Auto 3.4 x10*3/uL (2.0-8.3); Neutrophils Percent Auto 54.5 % (45-73); Platelet Count 173 X10*3/uL (160-400); Red Blood Count 4.85 X10*6/uL (4.20-5.50); White Blood Count 6.2 X10*3/uL (4.8-10.8)
[2022-01-02 09:06] LABS: Alanine Aminotransferase 24 U/L (0-31); Albumin Level 4.1 g/dL (3.5-5.0); Alkaline Phosphatase 80 U/L (39-117); Anion Gap 11 (12-20); Aspartate Amino Transferase 20 U/L (5-31); Bilirubin Total 0.7 mg/dL (0.0-1.0); Blood Urea Nitrogen 20 mg/dL (9-16); Calcium 9.5 mg/dL (8.4-10.2); Carbon Dioxide 25 mmol/L (22-29); Chloride 107 mmol/L (96-108); Cholesterol 193 mg/dL; Estimated Glomerular Filt Rate > 60; Glucose Fasting 92 mg/dL (60-99); HDL Cholesterol 45 mg/dL; LDL Cholesterol Calculated 133 mg/dl; Potassium 4.4 mmol/L (3.3-5.1); Sodium 139 mmol/L (135-145); Total Protein 7.4 g/dL (6.5-8.0); Triglycerides 76 mg/dL
[2022-01-02 09:12] LABS: Appearance Urine CLEAR; Color Urine YELLOW; Glucose Urine UA NEG (NEG); Leukocyte Esterase Urine 1+ (NEG); Nitrite Urine NEG (NEG); PH 5.5 (5.0-8.0); Specific Gravity - Urine >= 1.030 (1.005-1.025); UACC Culture Trigger YES; Urine Blood NEG (NEG); Urine Ketones NEG (NEG); Urine Protein NEG (NEG-TRACE)
[2022-01-02 09:31] LABS: TSH reflex Free T4 2.61 uIU/mL (0.32-4.0)
[2022-01-02 09:55] LABS: Squamous Epithelial Cell Urine 2+ /LPF
[2022-01-02 09:56] LABS: Bacteria Urine 1+ /LPF
== END 2022-01-02 07:50 | disposition home or self-care (01) ==
LOC: HO.LAB 07:49
PROVIDERS: PCP Nurse Practitioner Family; Visit Provider Nurse Practitioner Family
DX: R07.89 Other chest pain (principal); K30 Functional dyspepsia; R10.9 Unspecified abdominal pain; R94.8 Abnormal results of function studies of other organs and systems
CPT/HCPCS: 36415; 80053; 80061; 81001; 84443; 85025; 87086

== ENCOUNTER 2022-01-10 08:30 | Outpatient (REF) | payer OTHER, SELFPAY ==
[2022-01-10 11:33] LABS: Appearance Urine CLEAR; Color Urine YELLOW; Glucose Urine UA NEG (NEG); Leukocyte Esterase Urine 1+ (NEG); Nitrite Urine NEG (NEG); PH 5.5 (5.0-8.0); Specific Gravity - Urine 1.025 (1.005-1.025); Urine Blood NEG (NEG); Urine Ketones NEG (NEG); Urine Protein NEG (NEG-TRACE)
[2022-01-10 11:55] LABS: RBC Urine 0 /HPF (0); Squamous Epithelial Cell Urine TRACE /LPF; WBC Urine 0-2 /HPF (0-4)
== END 2022-01-10 08:31 | disposition home or self-care (01) ==
LOC: HO.HMGCLDS 08:30
PROVIDERS: PCP Nurse Practitioner Family; Visit Provider Nurse Practitioner Family
DX: R30.0 Dysuria (principal)
CPT/HCPCS: 81001; 87086

== ENCOUNTER 2022-01-16 10:04 | Outpatient (REF) | payer OTHER, SELFPAY ==
--- NOTE | ~2022-01-16 | XR_ITS ---
EXAMINATION: XR HIP, RIGHT CLINICAL INFORMATION: Pain right hip COMPARISON: None TECHNIQUE: Two views of the right hip. AP pelvis one view FINDINGS: AP pelvis and right hip: There is normal symmetry of bilateral SI joints and hip joints. There is an IUD in the pelvis. No fracture involving the pelvic bones. The soft tissues are normal. AP and frog-leg views right hip reveals maintained right hip joint space without bony erosive changes. No visible acute fracture or dislocation seen. There are small enthesophytes along the greater trochanter. The soft tissues are normal. XR/XR hip RT w PEL1V IMPRESSION: Unremarkable AP pelvis and right hip. Especially there is no visible acute fracture or dislocation. Small enthesophyte along the greater trochanter.
== END 2022-01-16 10:05 | disposition home or self-care (01) ==
LOC: HO.HMGCX 10:04
PROVIDERS: PCP Nurse Practitioner Family; Visit Provider Physician Assistant
DX: M25.551 Pain in right hip (principal)
CPT/HCPCS: 73502

== ENCOUNTER 2022-02-09 14:40 | Outpatient (REF) | payer OTHER, SELFPAY ==
--- NOTE | ~2022-02-09 | XR_ITS ---
EXAMINATION: XR CHEST 2 VIEWS CLINICAL INFORMATION: Chronic cough. COMPARISON: Chest radiograph dated 11/19/2020. TECHNIQUE: Frontal and lateral views of the chest were obtained. FINDINGS: The heart, great vessels, pulmonary vasculature and mediastinum are normal. There are intact median sternotomy wires. The lungs show no focal infiltrate, effusion or pneumothorax. There is no acute osseous abnormality. There is mild thoracic spondylosis. XR/XR chest 2V IMPRESSION: No active cardiopulmonary disease.
--- NOTE | ~2022-02-09 | XR_ITS ---
EXAMINATION: XR SINUSES CLINICAL INFORMATION: Sinusitis COMPARISON: None TECHNIQUE: 4 views of the sinuses were obtained. FINDINGS: Paranasal sinuses appear clear without air-fluid levels. No fractures are identified. No radiodense foreign bodies. XR/XR sinus min 3V IMPRESSION: Unremarkable examination.
== END 2022-02-09 14:41 | disposition home or self-care (01) ==
LOC: HO.XRAY 14:40
PROVIDERS: PCP Nurse Practitioner Family; Visit Provider Nurse Practitioner Family
DX: R05.9 Cough, unspecified (principal); J32.9 Chronic sinusitis, unspecified
CPT/HCPCS: 70220; 71046

== ENCOUNTER 2022-08-11 15:59 | Outpatient (REF) | payer OTHER, SELFPAY ==
--- NOTE | ~2022-08-11 | XR_ITS ---
EXAMINATION: XR CHEST CLINICAL INFORMATION: Contusion from wall of thorax COMPARISON: None TECHNIQUE: 2 views of the chest were obtained. FINDINGS: Lungs are well expanded and clear. No pneumothorax or pleural effusion. Cardiac silhouette has normal size and contour. Sternotomy wires are intact. The visualized bones are intact. No rib fractures are seen within the included [id number]. Thoracic vertebra have well preserved height and alignment. XR/XR chest 2V IMPRESSION: No acute pulmonary disease.
== END 2022-08-11 16:00 | disposition home or self-care (01) ==
LOC: HO.HMGCX 15:59
PROVIDERS: PCP Nurse Practitioner Family; Visit Provider Internal Medicine
DX: S20.219A Contusion of unspecified front wall of thorax, initial encounter (principal); X58.XXXA Exposure to other specified factors, initial encounter; Y93.9 Activity, unspecified; Y92.9 Unspecified place or not applicable; Y99.9 Unspecified external cause status
CPT/HCPCS: 71046

== ENCOUNTER → 2022-10-25 08:55 | Outpatient (BNVA) | payer OTHER, SELFPAY | PROVIDERS: PCP Nurse Practitioner Family; Visit Provider Physician Assistant Surgical | DX: Z13.89 Encounter for screening for other disorder (principal) ==

== ENCOUNTER 2022-10-31 15:00 | Outpatient (REF) | payer OTHER, SELFPAY ==
[2022-11-03 12:15] LABS: H Pylori Breath Test Negative (Negative)
== END 2022-10-31 15:01 | disposition home or self-care (01) ==
LOC: HO.LNP 15:00
PROVIDERS: Visit Provider Physician Assistant Surgical
DX: E66.9 Obesity, unspecified (principal); Z11.0 Encounter for screening for intestinal infectious diseases
CPT/HCPCS: 83013

== ENCOUNTER → 2022-10-31 15:00 | Outpatient (BNVA) | payer OTHER, SELFPAY | PROVIDERS: PCP Nurse Practitioner Family; Visit Provider Physician Assistant Surgical | DX: Z13.89 Encounter for screening for other disorder (principal) ==

== ENCOUNTER 2022-11-06 08:17 | Outpatient (REF) | payer OTHER, SELFPAY ==
--- NOTE | ~2022-11-06 | XR_ITS ---
EXAMINATION: XR CHEST CLINICAL INFORMATION: Bariatric service evaluation. E66.9. COMPARISON: Chest radiographs 08/11/2022, 02/09/2022 TECHNIQUE: 2 views of the chest were obtained. FINDINGS: There has been prior median sternotomy. Heart size normal. No vascular congestion, infiltrate, or effusion. Costophrenic sulci are clear. The hilar and mediastinal contours and bony structures are stable. XR/XR chest 2V IMPRESSION: No acute intrathoracic disease.
[2022-11-06 08:31] LABS: MANUAL DIFF FLAG NO
[2022-11-06 08:35] LABS: Basophils Absolute Auto 0.1 X10*3/uL (0.0-0.2); Basophils Percent Auto 0.9 % (0-2); Eosinophils Absolute Auto 0.2 X10*3/uL (0.0-0.4); Eosinophils Percent Auto 4.2 % (0-4); Hematocrit 41.8 % (37.0-47.0); Hemoglobin 13.8 g/dl (12.0-16.0); Imm Gran Abs Auto 0.02 X10*3/uL (0.00-0.03); Imm Gran Pct Auto 0.4 % (0.0-0.4); Lymphocytes Absolute Auto 2.1 X10*3/uL (1.2-4.9); Lymphocytes Percent Auto 38.3 % (20-40); Mean Corpuscular Hemoglobin 29.2 pg (27.0-33.0); Mean Corpuscular Volume 88.4 fL (80.0-98.0); Mean Platelet Volume 12.9 fL (9.4-12.3); Monocytes Absolute Auto 0.5 X10*3/uL (0.1-1.2); Monocytes Percent Auto 9.2 % (2-11); Neutrophils Absolute Auto 2.6 x10*3/uL (2.0-8.3); Platelet Count 153 X10*3/uL (160-400); Red Blood Count 4.73 X10*6/uL (4.20-5.50); Red Cell Distribution Width 14.5 % (11.0-16.0); White Blood Count 5.4 X10*3/uL (4.8-10.8)
[2022-11-06 08:48] LABS: Estimated Average Glucose 100 mg/dL; Hemoglobin A1c % 5.1 %
[2022-11-06 09:03] LABS: Alanine Aminotransferase 16 U/L (0-31); Albumin Level 3.9 g/dL (3.5-5.0); Alkaline Phosphatase 71 U/L (39-117); Anion Gap 11 (12-20); Aspartate Amino Transferase 17 U/L (5-31); Bilirubin Total 0.5 mg/dL (0.0-1.0); Blood Urea Nitrogen 23 mg/dL (9-16); C Reactive Protein 0.16 mg/dL (< or = 0.50); Calcium 9.1 mg/dL (8.4-10.2); Carbon Dioxide 25 mmol/L (22-29); Chloride 111 mmol/L (96-108); Cholesterol 171 mg/dL; Estimated Glomerular Filt Rate > 60; Glucose Random 99 mg/dL (60-115); HDL Cholesterol 39 mg/dL; Iron 78 mcg/dL (30-160); LDL Cholesterol Calculated 115 mg/dl; Percent Iron Saturation 31 % (15-50); Potassium 4.4 mmol/L (3.3-5.1); Sodium 143 mmol/L (135-145); Total Iron Binding Capacity 254 mcg/dL (228-428); Total Protein 6.9 g/dL (6.5-8.0); Triglycerides 87 mg/dL; Unsaturated Iron Binding 176 ug/dL
[2022-11-06 09:24] LABS: Insulin 9 uU/mL (2-29)
[2022-11-06 09:34] LABS: Ferritin 87 ng/mL (10-250); Folate 5.4 ng/mL (> or = 4.0); TSH reflex Free T4 3.21 uIU/mL (0.32-4.0); Vitamin B12 419 pg/mL (200-900); Vitamin D 25-OH Total 27.7 ng/mL (>30)
[2022-11-08 13:24] LABS: Calcium (PTHI) 9.2 mg/dL (8.6-10.4); PTHI 31 pg/mL (16-77)
[2022-11-10 23:19] LABS: Zinc 66 mcg/dL (60-130)
[2022-11-11 10:27] LABS: Vitamin B1 13 nmol/L (8-30)
[2022-11-11 22:43] LABS: Vitamin A 42 mcg/dL (38-98)
== END 2022-11-06 08:18 | disposition home or self-care (01) ==
LOC: HO.XRAY 08:17
PROVIDERS: PCP Nurse Practitioner Family; Visit Provider Physician Assistant Surgical
DX: E66.9 Obesity, unspecified (principal); Z20.2 Contact with and (suspected) exposure to infections with a predominantly sexual mode of transmission
CPT/HCPCS: 36415; 71046; 80053; 80061; 82306; 82607; 82728; 82746; 83036; 83525; 83540; 83970; 84425; 84443; 84590; 84630; 85025; 86140

== ENCOUNTER → 2022-11-07 10:04 | Outpatient (REF) | payer OTHER, SELFPAY ==
--- NOTE | 2022-11-07 10:18 | ECG_ITS ---
Test Reason : E66.9 Blood Pressure : / mmHG Vent. Rate : 054 BPM Atrial Rate : 054 BPM P-R Int : 162 ms QRS Dur : 092 ms QT Int : 438 ms P-R-T Axes : 025 041 054 degrees QTc Int : 415 ms Sinus bradycardia Otherwise normal ECG When compared with ECG of 27-DEC-2020 17:29, No significant change was found Referred By: Paddy Pacheco Electronically Signed By:MILIND COX
== END ==
LOC: HO.CARD 10:04
PROVIDERS: Absent Provider Physician Assistant Surgical; PCP Nurse Practitioner Family; Visit Provider Physician Assistant
DX: E66.9 Obesity, unspecified (principal)
CPT/HCPCS: 93005

== ENCOUNTER → 2022-11-21 09:59 | Outpatient (BNVA) | payer OTHER, SELFPAY | PROVIDERS: PCP Nurse Practitioner Family; Referring Provider Nurse Practitioner Family; Visit Provider Physician Assistant Surgical | DX: Z13.89 Encounter for screening for other disorder (principal) ==

== ENCOUNTER → 2022-11-23 09:28 | Outpatient (BNVA) | payer OTHER, SELFPAY | PROVIDERS: PCP Nurse Practitioner Family; Referring Provider Physician Assistant Surgical; Visit Provider Dietitian, Registered | DX: E66.9 Obesity, unspecified (principal); Z71.3 Dietary counseling and surveillance | CPT/HCPCS: 97802 ==

== ENCOUNTER → 2022-11-27 08:30 | Outpatient (BNVA) | payer OTHER, SELFPAY | PROVIDERS: PCP Nurse Practitioner Family; Visit Provider Counselor Mental Health ==

== ENCOUNTER → 2022-11-29 13:49 | Outpatient (REF) | payer OTHER, SELFPAY ==
--- NOTE | 2022-11-29 13:51 | CA_ITS ---
Transthoracic Echocardiogram Patient (Last, First, Middle): Judy Carpenter A Gender: Female Date of : 1970 Age: 51 Procedure Date: 11/29/2022 Procedure Type: Transthoracic Echocardiogram Location: OP Height: 175.26 cm Weight: 104.33 kg BSA: 2.19 m2 Heart Rate: 56 bpm BP: 130 / 74 mmHg Laboratory Secretary: SB Referring MD: Ruslan Rojas MD Symptoms: D15.1 - Benign neoplasm of heart Study Quality: Adequate ECG Rhythm: Bradycardia Conclusions: - The left ventricular systolic function is normal. The calculated ejection fraction is 64% by biplane method. - No obvious valvular pathology seen on this study. - No evidence of recurrent left atrial myxoma. Findings Left Ventricle Normal left ventricular cavity size. There is normal left ventricular wall thickness. The left ventricular systolic function is normal. The calculated ejection fraction is 64% by biplane method. There is no evidence of regional wall motion abnormalities. Diastolic function is normal for age. LV peak GLS -22%. Right Ventricle Normal right ventricular cavity size and systolic function. Atria Both atria are normal in size. Aortic Valve There is a normal trileaflet aortic valve. There is no aortic valve stenosis. There is no aortic valve regurgitation. Mitral Valve The mitral valve appears normal. There is trace mitral valve regurgitation. There is no mitral valve stenosis. Pulmonic Valve The pulmonic valve is likely normal. Tricuspid Valve There is trace tricuspid valve regurgitation. There is no evidence of pulmonary hypertension. Great Vessels The asc aorta is normal in size. Venous The inferior vena cava is normal in size and collapses greater than 50% with inspiration. Pericardium/Pleural There is no evidence of pericardial effusion. Prior Study Comparison No significant change compared to prior study dated: 01/05/2021. Recommendations, Care & Conclusions No obvious valvular pathology seen on this study. Measurements 2D Linear Measurements IVSd: 0.59 0.6-0.9/0.6-1.0 cm LVIDd: 5.65 3.9-5.3/4.2-5.9 cm LVIDd Index: 2.58 2.4-3.2/2.2-3.1 cm/m2 LVIDs: 3.74 2.0-3.6 cm LVPWd: 0.68 0.7-1.1 cm LA Diam: 3.80 2.7-3.8/3.0-4.0 cm LAIDs Index: 1.74 1.5-2.3 cm/m2 LV Mass: 157.35 67-162/88-224 g LV Mass Index: 71.85 43-95/49-115 g/m2 LVOT Diam: 2.20 3.0+(-)1.3 cm 2D Systolic Function EF 4C: 63.90 >55% EF 2C: 65.20 >55% EF BiP: 63.90 >55% Mitral Valve MV Pk E: 0.97 MV PK A: 0.41 MV Decel Time: 228.00 E/A: 2.40 E'Lateral: 10.70 E'Medial: 9.90 E/E' Med: 9.80 E/E' Lat: 9.10 PHT: 67.00 MVA PHT: 3.28 Decel Miner: 4.27 Aortic Valve AoV Pk Rik: 1.44 AoV Mn Rik: 1.11 AoV VTI: 0.34 AoV Pk Grad: 8.00 Aov Mn Grad: 5.00 SHALINI Cont.VTI: 3.06 LVOT LVOT Pk Rik: 1.24 LVOT Mn Rik: 0.88 LVOT VTI: 0.28 LVOT Pk Grad: 6.00 LVOT Mn Grad: 4.00 LVOT Diam: 2.20 LVOT Area: 3.80 Diastolic Function MV Pk E: 0.97 MV Pk A: 0.41 E/A: 2.40 E'Medial: 9.90 E/E' Med: 9.80 E' Laterial: 10.70 E/E' Lat: 9.10 Tricuspid Valve TR Pk Rik: 2.29 TR Pk Grad: 21.00 RA Press: 3.00 RVSP: 24.00 Great Vessels Aorta Sinus of Valsalva: 2.90 2.0-3.5 cm Ao Asc: 3.10 2.1-3.4 cm Pulmonary Veins Pulm Vein S/D 0.80 Pulmonary Valve PV Pk Rik: 1.00 Peak PV Grad: 4.00 Updated in Other Vendor System with Status of Final Ruslan Rojas MD electronically signed on 12/01/2022 12:44:24 PM with status of Final
== END ==
LOC: HO.CARD 13:49
PROVIDERS: Visit Provider Internal Medicine
DX: D15.1 Benign neoplasm of heart (principal)
CPT/HCPCS: 93306; 93356

== ENCOUNTER → 2022-12-05 09:10 | Outpatient (BNVA) | payer OTHER, SELFPAY | PROVIDERS: PCP Nurse Practitioner Family; Visit Provider Dietitian, Registered | DX: E66.9 Obesity, unspecified (principal); K31.84 Gastroparesis; Z68.36 Body mass index [BMI] 36.0-36.9, adult; Z71.3 Dietary counseling and surveillance | CPT/HCPCS: 97803 ==

== ENCOUNTER → 2022-12-13 08:03 | Outpatient (BNVA) | payer OTHER, SELFPAY | PROVIDERS: PCP Nurse Practitioner Family; Visit Provider Surgery ==

== ENCOUNTER 2022-12-20 09:28 | Outpatient (REF) | payer OTHER, SELFPAY ==
--- NOTE | ~2022-12-20 | FL_ITS ---
EXAMINATION: XR FLUOROSCOPY UPPER GI WITH AIR CLINICAL INFORMATION: Preop. Upper GI. Heartburn COMPARISON: None available. TECHNIQUE: Routine upper GI air-contrast study was performed. FINDINGS: Following oral administration of thick barium and effervescent granules there is normal propagation of bolus from the oral cavity through the pharynx, esophagus into stomach without any evidence of obstruction, narrowing or stricture. On placing patient supine and prone lying the course, caliber and peristalsis of the stomach and the duodenum is normal. The mucosal pattern of the stomach and duodenum is normal. There is a moderate gastroesophageal reflux without hiatal hernia. FLUOROSCOPY TIME: 1.3 minutes DOSE AREA PRODUCT: 31.73 uGy-m2 (microgray-meter squared) FL/FL upper GI w air IMPRESSION: Moderate gastroesophageal reflux without hiatal hernia.
--- NOTE | ~2022-12-20 | US_ITS ---
EXAMINATION: US COMPLETE ABDOMEN WITH LIVER ELASTOGRAPHY CLINICAL INFORMATION: Obesity COMPARISON: Previous CT of the abdomen and pelvis December 2020 and abdominal ultrasound November 2020 TECHNIQUE: Real-time imaging of the abdominal viscera. Noninvasive ultrasound liver fibrosis assessment is performed using Harmony ElastPQ point quantification shear wave elastography (2D-SWE) with a C5-2 MHz transducer. Multiple elastography samples are obtained. FINDINGS: PANCREAS: The head and body the pancreas are normal. The tail was not well visualized due to bowel gas. ABDOMINAL AORTA: The proximal, middle, and distal aortic segments are normal in caliber. INFERIOR VENA CAVA: Visualized portions are normal. LIVER: Liver echotexture is slightly increased. The liver is upper normal in size. Liver contour is normal. No focal lesion or intrahepatic biliary duct dilatation. The right lobe measures 19 cm in length. The left lobe measures 9 cm in length. Portal flow is normal/hepatopedal Shear wave liver elastography median stiffness is 1.9 m/s (reference: normal median stiffness is 1.3 m/s or less). Previously liver stiffness measurement 1.44 however there was sampling error. IQR/median stiffness to assess sampling precision is 0.07 (reference: good quality data set is IQR/median stiffness of 0.15 or less). GALLBLADDER: Normal. The gallbladder is physiologically distended without evidence of stones, sludge, polyps, wall thickening or pericholecystic fluid. COMMON BILE DUCT: Normal in caliber measuring 0.6 cm in diameter. RIGHT KIDNEY: Normal. No hydronephrosis. No renal calculi or focal parenchymal lesions. The kidney measures 12 cm in maximum dimension. LEFT KIDNEY: Normal. No hydronephrosis. No renal calculi or focal parenchymal lesions. The kidney measures 13 cm in maximum dimension. SPLEEN: Normal. The spleen measures 12 cm in maximum dimension. FREE FLUID: None. US/US abdomen comp w elastography IMPRESSION: 1. Impression: Slightly enlarged fatty liver. Limited visualization of the tail of the pancreas. 2. Liver elastography: Adequate liver sampling. Increased liver stiffness suggestive of compensated advanced chronic liver disease but need further test for confirmation. REFERENCE: Society of Radiologists in Ultrasound Liver Stiffness Thresholds (2020): LIVER STIFFNESS THRESHOLDS: *Liver Stiffness equal or less than 1.3 m/s: High probability of being normal. *Liver Stiffness less than 1.7 m/s: In the absence of other known clinical signs, rules out compensated advanced chronic liver disease. *Liver Stiffness 1.7-2.1 m/s: Suggestive of compensated advanced chronic liver disease but need further test for confirmation. *Liver Stiffness over 2.1 m/s: Rules in compensated advanced chronic liver disease. *Liver Stiffness over 2.4 m/s: Suggestive of clinically significant portal hypertension. QUALITY OF DATA SET: *IQR/Median value equal or less than 0.15 implies a quality data set. *IQR/Median value over 0.15 implies a poor quality data set. SIGNIFICANT CHANGE FROM PRIOR EXAM: Significant change if liver stiffness measurement is 10% or greater from prior exam. OTHER CONSIDERATIONS: The stage of liver fibrosis may be overestimated in the setting of acute hepatitis, liver inflammation, elevated liver function tests, hepatic vascular congestion, obstructive cholestasis, non-fasting state, and infiltrative diseases such as amyloidosis and lymphoma. In some patients with NAFLD, the liver stiffness thresholds for compensated advanced chronic liver disease may be lower. In causes other than viral hepatitis and NAFLD, liver stiffness thresholds are not well established.
== END 2022-12-20 09:29 | disposition home or self-care (01) ==
LOC: HO.US 09:28
PROVIDERS: PCP Nurse Practitioner Family; Visit Provider Physician Assistant Surgical
DX: E66.9 Obesity, unspecified (principal)
CPT/HCPCS: 74246; 76705; 76981

== ENCOUNTER → 2022-12-25 09:30 | Outpatient (BNVA) | payer OTHER, SELFPAY | PROVIDERS: PCP Nurse Practitioner Family; Visit Provider Counselor Mental Health | DX: F33.1 Major depressive disorder, recurrent, moderate (principal); E66.9 Obesity, unspecified ==

== ENCOUNTER → 2023-01-03 13:36 | Outpatient (BNVA) | payer OTHER, SELFPAY | PROVIDERS: PCP Nurse Practitioner Family; Visit Provider Counselor Mental Health | DX: F33.1 Major depressive disorder, recurrent, moderate (principal); E66.9 Obesity, unspecified ==

== ENCOUNTER → 2023-01-18 08:58 | Outpatient (BNVA) | payer OTHER, SELFPAY | PROVIDERS: PCP Nurse Practitioner Family; Visit Provider Physician Assistant Surgical ==

== ENCOUNTER → 2023-01-22 15:04 | Outpatient (BNVA) | payer OTHER, SELFPAY | PROVIDERS: PCP Nurse Practitioner Family; Visit Provider Counselor Mental Health | DX: F33.1 Major depressive disorder, recurrent, moderate (principal); E66.9 Obesity, unspecified | CPT/HCPCS: 90834 ==

== ENCOUNTER → 2023-01-25 08:21 | Outpatient (BNVA) | payer OTHER, SELFPAY | PROVIDERS: PCP Nurse Practitioner Family; Visit Provider Surgery ==

== ENCOUNTER 2023-01-30 08:23 | Outpatient (AMB) | payer OTHER, SELFPAY ==
--- NOTE | 2023-01-30 08:26 | A.OFFVIS_ITS ---
Intake VS Expanded 01/30/23 08:30 Height 5 ft 9 in Weight 214 lb 9.6 oz BMI 31.7 BP 117/66 Blood Pressure Location Rt brachial Blood Pressure Position Sitting Pulse 65 Pulse Source Pulse Oximeter Temp 96.7 F L Temperature Source Temporal Artery Scan Pulse Oximetry 95 Oxygen Delivery Method Room Air Body Fat 82.6 Body Fat Percentage 38.5 Free Fat Mass 131.8 Muscle Mass 125.2 Visceral Mass 6.0 Water Mass 94.6 BMR 1,849 Intake Visit Reasons: (OV) Pre Op LSG 02/07/23 [address] [employer] Installer Required: No Narcotics Investigator: Narcotics Investigator offered & declined Allergies No Known Allergies [No Known Allergies*] Allergy (Verified 01/30/23 08:28) Medication List - Last Reconciled 01/30/23 by Maury Bergman MD acetaminophen 500 mg (15 mL) PO Q6H PRN cholecalciferol (vitamin D3) 125 mcg PO DAILY CPAP As directed cyanocobalamin (vitamin B-12) 500 mcg PO DAILY ondansetron HCl 4 mg PO Q6H PRN pantoprazole 40 mg PO QAM 30 days polyethylene glycol 3350 (Miralax) Take 7 packets 2 days before surgery and 7 packets 1 day before surgery. Mix each packet with 8 oz's of water before surgery. sertraline 100 mg PO DAILY sucralfate 10 mL PO BID 30 days HPI HPI Comments History of Present Illness Details The patient is a 52-year-old woman with a lifelong struggle with obesity and obstructive sleep apnea. She reports her heaviest weight is 265 lb and she entered the surgical weight loss program on 10/31/2022 with a BMI of 36.2/weight of 245 lb. The patient has tried numerous fad diets, weight watchers and his always regained weight after successful weight loss. Pre op work up completed as follows: SWL classes:? 02/27 BH appts: cleared 01/08/23? RD appts: cleared 12/05/22 Labs: 11/06/22-low D, PLT:153, B12:419 H. 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 Past surgical history includes in median sternotomy for atrial myxoma. GERD 0 FAYE 3 ESS 8 QOL 84 She also has a history of gastroparesis and constipation. Her workup for the symptoms led to a HIDA scan for left upper quadrant pain that was reported is abnormal but the presenting history and subsequent findings were not consistent with gallbladder disease, so she was sent back to GI for assessment for irritable bowel syndrome. 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 History of ear surgery (~2015) History of esophagogastroduodenoscopy (EGD) History of open heart surgery (~03/16/16) Hx of section (~1986) Hx of colonoscopy (~05/2018) Family History Mother CVD (cardiovascular disease) Obesity Father Colon polyp Daughter Thyroid disease Maternal Grandfather Stomach cancer Diabetes Social History Housing: House Alcohol intake: former Patient Tobacco Use Status: Never used Tobacco e-Cigarette/Vaping Use: Never Used Second Hand Smoke Exposure: No Current occupational status: employed Cognitive needs: No Hearing needs: No Vision needs: No Physical Exam The patient is non-toxic & in good spirits NC/AT, PERRLA, EOMI Mood, affect & judgment all appear appropriate Sclera anicteric conjunctiva pink and moist Oropharynx is clear with no aphthous ulcers, Mallampati class 4, mucous membranes moist Neck is supple with no masses, adenopathy or bruits Thyroid is nontender and free of dominant masses Heart is regular, normal S1-S2 no rubs or murmurs Lungs are clear and equal anteriorly with no audible wheezing, rubs or dullness to percussion Abdomen is overweight with no demonstrable hernias. No HSM, rebound, rigidity, guarding, masses or bruits are present. Rectal exam is deferred Skin has good turgor and is free of rashes Extremities free of cyanosis clubbing edema Results Reviewed Results Reviewed: Labs: 11/06/2022 Hemoglobin 13.8 with normal indices and normal iron studies; platelet count slightly depressed at 153k BUN 20/creatinine 0.77, electrolytes within normal parameters Hemoglobin A1c 5.1 LFTs, lipids within normal parameters H.pylori negative Diagnostic imaging 12/20/2022 Upper GI shows no hiatal hernia, GERD is noted Abdominal ultrasound shows NAFLD, no gallstones CXR: Median sternotomy wires are noted, any date Patient is previously had a CCK HIDA 01/2021 for irritable bowel/left upper quad rant abdominal complaints Assessment & Plan Assessment & Plan (1) Obesity (BMI 30-39.9): Code(s): E66.9 - Obesity, unspecified (2) JUAN (obstructive sleep apnea): Code(s): G47.33 - Obstructive sleep apnea (adult) (pediatric) (3) Class 1 obesity due to excess calories with body mass index (BMI) of 30.0 to 30.9 in adult: Code(s): E66.09 - Other obesity due to excess calories; Z68.30 - Body mass index [BMI] 3 0.0-30.9, adult (4) Abnormal biliary HIDA scan: Code(s): R94.8 - Abnormal results of function studies of other organs and systems (5) Delayed gastric emptying: Code(s): K30 - Functional dyspepsia (6) Major depressive disorder, recurrent, moderate: Code(s): F33.1 - Major depressive disorder, recurrent, moderate Plan The patient is congratulated on her ongoing weight loss and healthy lifestyle changes. Options including continued medical weight loss versus operative intervention with gastric bypass or laparoscopic sleeve gastrectomy were reviewed at length using a teaching motorcycle service technician. The patient had questions regarding her previous diagnosis of gastroparesis in left upper quadrant pain, gallbladder concerns and by the completion of the visit, the patient's questions seemed to be satisfactorily answered. The use of sleeve gastrectomy in gastroparesis as well as gastric bypass was reviewed with the patient. I have recommended proceeding with a laparoscopic sleeve gastrectomy, possible hiatal hernia repair, intraoperative upper endoscopy, possible ventral hernia. The patient seems to understand her options and agrees that she would like to proceed with this plan. I reviewed the inherent risks of this procedure which include, but are not limited to: Bleeding that could require another operation or blood transfusion; the inherent risks of transfusion reaction infectious disease from blood transfusions; the risk of staple line leaks that could cause sepsis, multi- system organ failure and ; the risk of mesenteric or deep vein thrombosis of the lower extremities that could cause a fatal pulmonary embolism was reviewed; the risk of GERD that could require conversion to gastric bypass was discussed; the risk of recurrent hiatal hernia, especially in the setting of weight regain was reviewed. The risk of weight regain if maladaptive eating and sedentary behavior continue was discussed. The importance of proper diet and increased activity to augment surgical weight loss and the fact that no operatio n would result in weight loss of poor dietary decisions and sedentary behavior are resumed were discussed at length and apparently understood. The patient had the option of having a human resources compliance manager present and declined this option. We discussed the patient's gastroparesis and irritable bowel syndrome and the fact that her symptoms may persist and require different interventions. We also discussed her prior CCK HIDA which was interpreted as abnormal for unclear reasons, but demonstrated a normal ejection fraction and the patient lacks a history consistent with gallbladder disease. The patient seems to understand that we may need to address the symptoms postoperatively. Typical pre/arslan and postoperative course, the bowel prep, the importance of hydration and avoidance of dehydration; activity restrictions were all reviewed in the patient's questions seemed to be satisfactorily answered. 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 Patient will void her urinary bladder conveyor mechanic to surgery, have SCDs in place, receive Ancef, 2 g IV. Her prescriptions were sent to her pharmacy and preoperative labs ordered. Her questions seemed to be satisfactorily answered. Time spent with patient: 63 minutes Orders: Orders Type and Screen Today E66.9 - Obesity, unspecified, G47.33 - Obstructive sleep apnea (adult) (pediatric), Z68.33 - Body mass index [BMI] 33.0-33.9, adult Vitamin B12 Today E66.9 - Obesity, unspecified, G47.33 - Obstructive sleep apnea (adult) (pediatric), Z68.33 - Body mass index [BMI] 33.0-33.9, adult Comprehensive Met. Panel Today E66.9 - Obesity, unspecified, G47.33 - Obstructive sleep apnea (adult) (pediatric), Z68.33 - Body mass index [BMI] 33.0-33.9, adult C Reactive Protein Today E66.9 - Obesity, unspecified, G47.33 - Obstructive sleep apnea (adult) (pediatric), Z68.33 - Body mass index [BMI] 33.0-33.9, adult Ferritin Today E66.9 - Obesity, unspecified, G47.33 - Obstructive sleep apnea (adult) (pediatric), Z68.33 - Body mass index [BMI] 33.0-33.9, adult Hemoglobin A1c Today E66.9 - Obesity, unspecified, G47.33 - Obstructive sleep apnea (adult) (pediatric), Z68.33 - Body mass index [BMI] 33.0-33.9, adult IRON PROFILE Today E66.9 - Obesity, unspecified, G47.33 - Obstructive sleep apnea (adult) (pediatric), Z68.33 - Body mass index [BMI] 33.0-33.9, adult Lipid Panel Today E66.9 - Obesity, unspecified, G47.33 - Obstructive sleep apnea (adult) (pediatric), Z68.33 - Body mass index [BMI] 33.0-33.9, adult PTHI Today E66.9 - Obesity, unspecified, G47.33 - Obstructive sleep apnea (adult) (pediatric), Z68.33 - Body mass index [BMI] 33.0-33.9, adult TSH reflex Free T4 Today E66.9 - Obesity, unspecified, G47.33 - Obstructive sleep apnea (adult) (pediatric), Z68.33 - Body mass index [BMI] 33.0-33.9, adult Vitamin A Today E66.9 - Obesity, unspecified, G47.33 - Obstructive sleep apnea (adult) (pediatric), Z68.33 - Body mass index [BMI] 33.0-33.9, adult Vitamin B1 Today E66.9 - Obesity, unspecified, G47.33 - Obstructive sleep apnea (adult) (pediatric), Z68.33 - Body mass index [BMI] 33.0-33.9, adult Vitamin D 25-OH Total Today E66.9 - Obesity, unspecified, G47.33 - Obstructive sleep apnea (adult) (pediatric), Z68.33 - Body mass index [BMI] 33.0-33.9, adult Zinc Today E66.9 - Obesity, unspecified, G47.33 - Obstructive sleep apnea (adult) (pediatric), Z68.33 - Body mass index [BMI] 33.0-33.9, adult Prothrombin Time INR Today E66.9 - Obesity, unspecified, G47.33 - Obstructive sleep apnea (adult) (pediatric), Z68.33 - Body mass index [BMI] 33.0-33.9, adult Partial Thromboplastin Time Today E66.9 - Obesity, unspecified, G47.33 - Obstructive sleep apnea (adult) (pediatric), Z68.33 - Body mass index [BMI] 33.0-33.9, adult Complete Blood Count Auto Diff Today E66.9 - Obesity, unspecified, G47.33 - Obstructive sleep apnea (adult) (pediatric), Z68.33 - Body mass index [BMI] 33.0-33.9, adult Medications: New polyethylene glycol 3350 (Miralax) Take 7 packets 2 days before surgery and 7 packets 1 day before surgery. Mix each packet with 8 oz's of water before surgery. 14 packets 0RF sucralfate 10 mL PO BID 30 days 600 mL 2RF ondansetron HCl 4 mg PO Q6H PRN 20 tabs 0RF nausea and vomiting pantoprazole 40 mg PO QAM 30 days 30 tabs 2RF acetaminophen 500 mg (15 mL) PO Q6H PRN 237 mL 2RF fever or pain Coding Level of Care Code Est Pt Level 5 (54082) Diagnoses Obesity (BMI 30-39.9) E66.9 JUAN (obstructive sleep apnea) G47.33 Class 1 obesity due to excess calories with body mass index (BMI) of 30.0 to 30.9 in adult E66.09; Z68.30 Abnormal biliary HIDA scan R94.8 Delayed gastric emptying K30 Major depressive disorder, recurrent, moderate F33.1
[2023-01-30 08:30] VITALS: BP 117/66; PULSE 65; TEMP 35.9; O2SAT 95; BMI 31.7
== END 2023-01-30 10:34 | disposition home or self-care (01) ==
PROVIDERS: PCP Nurse Practitioner Family; Visit Provider Surgery
DX: E66.09 Other obesity due to excess calories (principal); Z68.31 Body mass index [BMI] 31.0-31.9, adult; G47.33 Obstructive sleep apnea (adult) (pediatric); R94.8 Abnormal results of function studies of other organs and systems; K30 Functional dyspepsia; F33.1 Major depressive disorder, recurrent, moderate; E66.9 Obesity, unspecified
CPT/HCPCS: 99499

== ENCOUNTER → 2023-01-30 08:23 | Outpatient (BNVA) | payer OTHER, SELFPAY | PROVIDERS: PCP Nurse Practitioner Family; Visit Provider Surgery | DX: E66.9 Obesity, unspecified (principal); Z68.33 Body mass index [BMI] 33.0-33.9, adult; G47.33 Obstructive sleep apnea (adult) (pediatric) ==

== ENCOUNTER 2023-02-07 06:00 | Inpatient (IN) | payer OTHER, SELFPAY ==
[2023-01-31 14:51] VITALS: BMI 31.6
[2023-02-02 08:05] LABS: MANUAL DIFF FLAG NO
[2023-02-02 08:35] LABS: Basophils Percent Auto 0.6 % (0-2); Eosinophils Absolute Auto 0.3 X10*3/uL (0.0-0.4); Eosinophils Percent Auto 3.8 % (0-4); Hematocrit 45.2 % (37.0-47.0); Imm Gran Abs Auto 0.01 X10*3/uL (0.00-0.03); Imm Gran Pct Auto 0.2 % (0.0-0.4); Lymphocytes Absolute Auto 2.1 X10*3/uL (1.2-4.9); Lymphocytes Percent Auto 31.5 % (20-40); Mean Corpuscular HGB Conc 33.2 g/dl (31.0-35.0); Mean Corpuscular Volume 87.3 fL (80.0-98.0); Mean Platelet Volume 13.4 fL (9.4-12.3); Monocytes Absolute Auto 0.7 X10*3/uL (0.1-1.2); Monocytes Percent Auto 10.9 % (2-11); Neutrophils Absolute Auto 3.5 x10*3/uL (2.0-8.3); Platelet Count 158 X10*3/uL (160-400); Red Blood Count 5.18 X10*6/uL (4.20-5.50); White Blood Count 6.5 X10*3/uL (4.8-10.8)
[2023-02-02 08:39] LABS: INTERNATIONAL NORM RATIO 1.1 (0.9-1.1); Prothrombin Time 12.5 SEC (10.0-13.1)
[2023-02-02 08:42] LABS: Partial Thromboplastin Time 30.7 SEC (26.0-36.4)
[2023-02-02 08:48] LABS: Estimated Average Glucose 97 mg/dL
[2023-02-02 08:55] LABS: Alanine Aminotransferase 15 U/L (0-31); Albumin Level 4.2 g/dL (3.5-5.0); Alkaline Phosphatase 69 U/L (39-117); Anion Gap 13 (12-20); Aspartate Amino Transferase 17 U/L (5-31); Bilirubin Total 0.7 mg/dL (0.0-1.0); Blood Urea Nitrogen 19 mg/dL (9-16); Calcium 10.1 mg/dL (8.4-10.2); Carbon Dioxide 25 mmol/L (22-29); Chloride 107 mmol/L (96-108); Cholesterol 182 mg/dL; Creatinine Clr Calc Pharmacy 113.6; Estimated Glomerular Filt Rate > 60; Glucose Random 97 mg/dL (60-115); HDL Cholesterol 46 mg/dL; Iron 76 mcg/dL (30-160); LDL Cholesterol Calculated 125 mg/dl; Percent Iron Saturation 30 % (15-50); Potassium 3.7 mmol/L (3.3-5.1); Sodium 141 mmol/L (135-145); Total Iron Binding Capacity 253 mcg/dL (228-428); Total Protein 7.6 g/dL (6.5-8.0); Triglycerides 57 mg/dL; Unsaturated Iron Binding 177 ug/dL
[2023-02-02 09:11] LABS: Ferritin 135 ng/mL (10-250); TSH reflex Free T4 1.82 uIU/mL (0.32-4.0); Vitamin D 25-OH Total 49.9 ng/mL (>30)
[2023-02-02 09:18] LABS: Vitamin B12 972 pg/mL (200-900)
[2023-02-05 15:24] LABS: Calcium (PTHI) 9.5 mg/dL (8.6-10.4); PTHI 34 pg/mL (16-77)
--- NOTE | 2023-02-06 08:12 | MHC.SHP ---
Pre-Procedural Eval Section A Date of Service: 02/06/23 The patient is an INPATIENT: Yes The History & Physical has been completed within 30 days and I have reviewed it.: Yes Section B Chief Complaint: Obesity, unspecified Allergies: Allergies Allergy/AdvReac Type Severity Reaction Status Date / Time No Known Allergies Allergy Verified 01/30/23 08:28 [No Known Allergies*] Plan I have reviewed the history and physical and performed a pertinent physical examination on my patient. No changes have occurred unless specified. Time Spent With Patient Time: Total time managing care of this patient today ____ minutes.
--- NOTE | 2023-02-06 08:13 | P.OP_ITS ---
Operative Note Operative Note Date of Service: 02/07/23 Narrative: Preop diagnosis: [Obesity, JUAN] Postop diagnosis: [same, no HH] Procedure: [Laparoscopic sleeve gastrectomy, gastropexy, intraoperative upper endoscopy] Surgeon: Maury Bergman MD Assist: [Emili Castellanos PA-C] Anesthesia: [GET, Marcaine, 0.5% plain] Estimated blood loss: [10cc] Specimen: [Portion of stomach with fundus] Intraoperative findings: [Grossly normal, fusiform stomach with no evidence of a hiatal hernia. Normal liver, spleen and anterior pancreas] Indications: [The patient is a 52-year-old woman with a lifelong struggle with obesity and obstructive sleep apnea. Patient entered the surgical weight loss program 10/31/2022 at a weight of 245 lb/BMI 36.2. 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 After demonstrating healthy lifestyle changes and weight loss, options including continued medical weight loss versus bariatric surgery was discussed at length. Patient wanted to proceed with a laparoscopic sleeve gastrectomy, possible hiatal hernia repair, intraoperative endoscopy and possible ventral hernia repair. We reviewed the inherent risks of the planned operation which include, but are not limited to: Bleeding that could require another operation or blood transfusion; the inherent risks of transfusion reaction infectious disease from blood transfusions; the risk of staple line leaks that could cause sepsis, multi-system organ failure and ; the risk of mesenteric or deep vein thrombosis of the lower extremities that could cause a fatal pulmonary embolism was reviewed; the risk of GERD that could require conversion to gastric bypass was discussed; the risk of recurrent hiatal hernia, especially in the setting of weight regain was reviewed. The risk of weight regain if maladaptive eating and sedentary behavior continue was discussed. The importance of proper diet and increased activity to augment surgical weight loss and the fact that no operation would result in weight loss of poor dietary decisions and sedentary behavior are resumed were discussed at length and apparently understood. The patient had the option of having a information support project manager present and declined this option.] Procedure: [The patient was identified in the preoperative holding area by myself and again in the operating suite by myself and the OR team. Patient was placed supine on the operating table. Safety straps were utilized and a footboard utilized. The patient was induced in general endotracheal anesthesia administered with excellent effect. An appropriate time-out was performed. The patient's abdomen was then widely prepped and draped in the usual manner for surgery using chlorprep. Antibiotics per protocol were administered by Anesthesia. After infiltrating preemptive local in the skin and subcutaneous tissues in the left upper quadrant, a stab incision was made sharply in the left subcostal abdomen and the Veress needle inserted without incident. An appropriate drop test was performed then a pneumoperitoneum of 15 mmHg was obtained using carbon dioxide. Opening pressures were 6 mmHg. Next, a 5 mm 0 degree scope over a 5 mm Optiview trocar was used to access the abdomen via the epigastric incision in the midline. Once the abdomen was entered, the the trocar obturator was removed and the laparoscope was used to confirm there was no injury from the Veress needle nor trocar insertion injury to the bowel or mesentery, then the scope was switched to a 5 mm 45 degree laparoscope. Next, using preemptive local, additional 5 mm trocars were placed under direct laparoscopic vision on the patient's left abdomen, then right and the 5 mm midline trocar upsized to a 12 mm to accommodate the stapler. The patient was then positioned in reverse Trendelenburg and the liver retractor deployed through the right lateral 5 mm trocar and secured. A 40 [place] ViSiGi bougie was inserted by Anesthesia per os and advanced to the stomach to decompress. It was then withdrawn to the GE junction all under direct laparoscopic vision. Dissection was begun along the greater curvature using the 5 mm [place] LigaSure for hemostasis and continued to the left alma of the diaphragm. Dissection was then carried towards the pylorus to 3-4 cm from the pylorus and retro gastric adhesions lysed. The gastroesophageal fat pad was carefully mobilized taking care to avoid injury to the esophagus and stomach and dissection carried towards the short gastrics taking care to avoid injury to the spleen and splenic artery. The diaphragmatic hiatus was carefully examined for a hernia, and no apparent hernia was appreciated. Next, the 40 Fr ViSiGi bougie was advanced by anesthesia under direct vision and laparoscopic guidance and positioned in the antrum approximately 3 cm from the pylorus using laparoscopic graspers to serve as a guide for a stapled sleeve gastrectomy. Stapling was performed with [employer] power stapler Endo-VARUN stapler with a purple 45 and then 60 loads. The bougie served as a guide to maintain the same sleeve caliber to avoid stricture & sleeve distortion. The 10 mm clip sewer separation designer was used to apply additional clips to the staple line. Care was taken to be sure that the sleeve laid flat and was without stricture. Once the sleeve was complete, the portion of stomach was placed in the lower abdomen to be sent for removal and permanent section. The staple line, gastrocolic omentum, spleen and short gastric areas were all inspected for hemostasis which was found to be good. Next, the bougie was withdrawn under laparoscopic vision used to suction the esophagus and hypopharynx and then discarded. After inspecting again for hemostasis, a gastropexy was performed using 2-0 Polysorb suture to secure the sleeve gastrectomy to the gastrocolic omentum. Next, I broke scrub perform an on-table upper endoscopy to assess the sleeve and the esophagus and stomach. The patient was returned to neutral position and the Olympus 160 gastroscope was advanced taking care to preserve the endotracheal tube. The esophagus was intubated without incident. Minimal air was insufflated and the scope advanced into the newly formed sleeve. The staple line was inspected for hemostasis and the morphology of the sleeve appeared straight with a uniform diameter. Intraoperatively, there was no evidence of staple line leak seen during laparoscopy as air was insufflated via endoscope. The scope was then used to aspirate the air from the sleeve withdrawn and removed. I then rescrubbed to return to the operative field and again inspected the field for hemostasis. After final assessment for hemostasis, the patient was returned to neutral position, a Andrés used to withdraw the resected gastric specimen which was sent for permanent section. The fascia of the 12 mm midline was closed using an 0 Polysorb figure of 8 on a suture passer under direct laparoscopic vision. The abdomen was then deflated and all trocars removed. The suture was then tied and the skin closed with 4-0 Monocryl subcuticular sutures. The abdomen was then washed and dried, benzoin and Steri-Strips flower lied followed by Tegaderms. The patient tolerated the procedure well was then extubated the recover in stable condition. All sponge needle and instrument counts were correct x2. At the patient's request, I contacted Nik Carpenter at [phone] to apprise him of the operation and postoperative plan. 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 His questions seemed to be satisfactorily answered.]
--- NOTE | 2023-02-06 09:45 | HO.ANESPROP2 ---
Documented by User: Dedra Trujillo NP 02/06/23 09:49 HPI - Anesthesia Eval Consult details Narrative: 52yo F for Gastrectomy Sleeve EGD,poss diaphragmatic hernia, poss ventral hernia, poss open Pt had atrial myxoma resection. Per last cardiology office visit (2020): originally came for a preoperative cardiac evaluation for bariatric surgery.? At that time routine echocardiogram at shown left atrial myxoma confirmed by cardiac MRI.? Then she underwent cardiac catheterization which was unremarkable for any coronary disease.? Then had successful myxoma resection. Pt instructed for f/u with cardiology in ~2 years [facility] Active Problems Active Problems: All Active Problems (Updated 01/31/23 @ 14:50 by Brunilda Barney, VANESSA) LUQ pain (Acute) Fatigue (Acute) Chronic idiopathic constipation (Acute) Grade II hemorrhoids (Acute) Abdominal bloating (Acute) Palpitation (Acute) Chest discomfort (Acute) Depression (Acute) Family history of polyps in the colon (Acute) RUQ abdominal pain (Acute) PAC (premature atrial contraction) (Acute) Acalculous cholecystitis (Acute) Abdominal cramping (Acute) Delayed gastric emptying (Acute) Chest discomfort (Acute) Dysuria (Acute) Physical exam (Acute) Stress due to family tension (Acute) Chest wall contusion (Acute) Obesity (BMI 30-39.9) (Acute) Major depressive disorder, recurrent, moderate (Acute) BMI 33.0-33.9,adult (Acute) Pain of back and left lower extremity (Acute) Class 1 obesity due to excess calories with body mass index (BMI) of 30.0 to 30.9 in adult (Acute) Abnormal biliary HIDA scan (Acute) JUAN (obstructive sleep apnea) (Acute) PVC (premature ventricular contraction) (Acute) Atrial myxoma (Acute) H/O excision of mass (Acute ~03/16/16) Past Medical History Medical History Abnormal biliary HIDA scan Anxiety Atrial myxoma Fatty liver IUD (intrauterine device) in place Leg pain, left Lumbar disc herniation Migraines JUAN (obstructive sleep apnea) PVC (premature ventricular contraction) Right sided abdominal pain Thrombocytopenia Family History Family History Mother CVD (cardiovascular disease) Obesity Father Colon polyp Daughter Thyroid disease Maternal Grandfather Stomach cancer Diabetes Surgical History Surgical History H/O excision of mass (~03/16/16) 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 History of ear surgery (~2015) History of esophagogastroduodenoscopy (EGD) History of open heart surgery (~03/16/16) Hx of section (~1986) Hx of colonoscopy (~05/2018) Hx of tubal ligation Social History Social History Household Members Other:: adult son Housing: House Are you a primary healthcare network consultant to a significant other at home: No Do you presently have visiting nurse or other home services: No Alcohol intake: former Patient Tobacco Use Status: Never used Tobacco e-Cigarette/Vaping Use: Never Used Second Hand Smoke Exposure: No Use of substances other than those prescribed or required for medical reasons: No Have you been hit, kicked, punched, or otherwise hurt by someone within the past year? If so, by whom?: No Are you DNR?: No Advance Directives: No Advance Directives Information Provided: Yes Advance Directives on File: No Recently lost weight without trying: No Nutrition Risks: No Nutritional Risk Patient : No : No Poor oral hygiene: No Current occupational status: employed Cognitive needs: No Hearing needs: No Vision needs: No Meds Allergies Allergy/AdvReac Type Severity Reaction Status Date / Time No Known Allergies Allergy Verified 01/30/23 08:28 [No Known Allergies*] Home Medications Medication Instructions Recorded Confirmed Last Taken Type CPAP 10/25/22 02/07/23 Unknown History sertraline 50 mg tablet 100 mg PO DAILY 11/21/22 02/07/23 Unknown History Exam Exam Date and Time: February 06, 2023 0945 Height,Weight and Vital Signs: Height 5 ft 9 in Weight 97.069 kg Pertinent Lab Results Pertinent Lab Results: Laboratory Tests 02/02/23 02/02/23 02/02/23 07:55 07:55 07:55 WBC 6.5 RBC 5.18 Hgb 15.0 Hct 45.2 MCV 87.3 MCH 29.0 MCHC 33.2 RDW 14.0 Plt Count 158 L MPV 13.4 H Immature Gran % (Auto) 0.2 Neut % (Auto) 53.0 Lymph % (Auto) 31.5 [place] % (Auto) 10.9 Eos % (Auto) 3.8 Baso % (Auto) 0.6 Lymph # (Auto) 2.1 [place] # (Auto) 0.7 Eos # (Auto) 0.3 Baso # (Auto) 0.0 Abs Immat Gran (auto) 0.01 Absolute Neuts (auto) 3.5 Absolute Nucleated RBC 0.000 Nucleated RBC % (auto) 0.0 PT 12.5 INR 1.1 APTT 30.7 Sodium 141 Potassium 3.7 Chloride 107 Carbon Dioxide 25 Anion Gap 13 BUN 19 H Creatinine 0.71 Estim Creat Clear Calc 113.6 Estimated GFR > 60 Random Glucose 97 Estimat Average Glucose Hemoglobin A1c % Calcium 10.1 D Iron 76 TIBC 253 % Saturation 30 Unsat Iron Binding 177 Ferritin 135 Total Bilirubin 0.7 AST 17 ALT 15 Alkaline Phosphatase 69 C-Reactive Protein 0.30 Total Protein 7.6 Albumin 4.2 Triglycerides 57 Cholesterol 182 LDL Cholesterol, Calc 125 HDL Cholesterol 46 Vitamin B12 25-OH Vitamin D Total 49.9 TSH 1.82 PTH Intact Calcium (PTH Intact) Blood Type Antibody Screen 02/02/23 02/02/23 02/02/23 07:55 07:55 07:55 WBC RBC Hgb Hct MCV MCH MCHC RDW Plt Count MPV Immature Gran % (Auto) Neut % (Auto) Lymph % (Auto) [place] % (Auto) Eos % (Auto) Baso % (Auto) Lymph # (Auto) [place] # (Auto) Eos # (Auto) Baso # (Auto) Abs Immat Gran (auto) Absolute Neuts (auto) Absolute Nucleated RBC Nucleated RBC % (auto) PT INR APTT Sodium Potassium Chloride Carbon Dioxide Anion Gap BUN Creatinine Estim Creat Clear Calc Estimated GFR Random Glucose Estimat Average Glucose 97 Hemoglobin A1c % 5.0 Calcium Iron TIBC % Saturation Unsat Iron Binding Ferritin Total Bilirubin AST ALT Alkaline Phosphatase C-Reactive Protein Total Protein Albumin Triglycerides Cholesterol LDL Cholesterol, Calc HDL Cholesterol Vitamin B12 972 H 25-OH Vitamin D Total TSH PTH Intact 34 Calcium (PTH Intact) 9.5 Blood Type Antibody Screen 02/02/23 07:55 WBC RBC Hgb Hct MCV MCH MCHC RDW Plt Count MPV Immature Gran % (Auto) Neut % (Auto) Lymph % (Auto) [place] % (Auto) Eos % (Auto) Baso % (Auto) Lymph # (Auto) [place] # (Auto) Eos # (Auto) Baso # (Auto) Abs Immat Gran (auto) Absolute Neuts (auto) Absolute Nucleated RBC Nucleated RBC % (auto) PT INR APTT Sodium Potassium Chloride Carbon Dioxide Anion Gap BUN Creatinine Estim Creat Clear Calc Estimated GFR Random Glucose Estimat Average Glucose Hemoglobin A1c % Calcium Iron TIBC % Saturation Unsat Iron Binding Ferritin Total Bilirubin AST ALT Alkaline Phosphatase C-Reactive Protein Total Protein Albumin Triglycerides Cholesterol LDL Cholesterol, Calc HDL Cholesterol Vitamin B12 25-OH Vitamin D Total TSH PTH Intact Calcium (PTH Intact) Blood Type B Positive Antibody Screen NEGATIVE Narrative Narrative: EKG 10/2022 Vent. Rate : 054 BPM ? ? Atrial Rate : 054 BPM ?? P-R Int : 162 ms? QRS Dur : 092 ms ? ? QT Int : 438 ms ? ? ? P-R-T Axes : 025 041 054 degrees ?? QTc Int : 415 ms ? Sinus bradycardia Otherwise normal ECG When compared with ECG of 27-DEC-2020 17:29, No significant change was found ECHO 11/2022 Conclusions: - The left ventricular systolic function is normal.? The ? calculated ejection fraction is 64% by biplane method. ? - No obvious valvular pathology seen on this study.? - No evidence of recurrent left atrial myxoma. ? Assessment and Plan Assessment Anesthesia Assessment: Chart Reviewed Documented by User: Irma Mcnulty MD 02/07/23 07:38 HPI - Anesthesia Eval Consult details Narrative: 52yo F for Gastrectomy Sleeve EGD,poss diaphragmatic hernia, poss ventral hernia, poss open Pt had atrial myxoma resection. Per last cardiology office visit (2020): originally came for a preoperative cardiac evaluation for bariatric surgery.? At that time routine echocardiogram showed left atrial myxoma confirmed by cardiac MRI.? Then she underwent cardiac catheterization which was unremarkable for any coronary disease.? Then had successful myxoma resection. Pt instructed for f/u with cardiology in ~2 years [facility] Active Problems Active Problems: All Active Problems (Updated 02/07/23 @ 07:15 by Irma Mcnulty MD) LUQ pain (Acute) Fatigue (Acute) Chronic idiopathic constipation (Acute) Grade II hemorrhoids (Acute) Abdominal bloating (Acute) Palpitation (Acute) Chest discomfort (Acute) Depression (Acute) Family history of polyps in the colon (Acute) RUQ abdominal pain (Acute) PAC (premature atrial contraction) (Acute) Acalculous cholecystitis (Acute) Abdominal cramping (Acute) Delayed gastric emptying (Acute) Chest discomfort (Acute) Dysuria (Acute) Physical exam (Acute) Stress due to family tension (Acute) Chest wall contusion (Acute) Obesity (BMI 30-39.9) (Acute) Major depressive disorder, recurrent, moderate (Acute) BMI 33.0-33.9,adult (Acute) Pain of back and left lower extremity (Acute) Class 1 obesity due to excess calories with body mass index (BMI) of 30.0 to 30.9 in adult (Acute) Abnormal biliary HIDA scan (Acute) JUAN (obstructive sleep apnea) (Acute). Uses CPAP machine PVC (premature ventricular contraction) (Acute) Atrial myxoma (Acute) H/O excision of mass (Acute ~03/16/16) Past Medical History Medical History Abnormal biliary HIDA scan Anxiety Atrial myxoma Fatty liver IUD (intrauterine device) in place Leg pain, left Lumbar disc herniation Migraines JUAN (obstructive sleep apnea) PVC (premature ventricular contraction) Right sided abdominal pain Thrombocytopenia Family History Family History Mother CVD (cardiovascular disease) Obesity Father Colon polyp Daughter Thyroid disease Maternal Grandfather Stomach cancer Diabetes Family history of problems with anesthesia: No Surgical History Surgical History H/O excision of mass (~03/16/16) 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 History of ear surgery (~2015) History of esophagogastroduodenoscopy (EGD) History of open heart surgery (~03/16/16) Hx of section (~1986) Hx of colonoscopy (~05/2018) Hx of tubal ligation History of Problems with Anesthesia: No Social History Social History Household Members Other:: adult son Housing: House Are you a primary healthcare network consultant to a significant other at home: No Do you presently have visiting nurse or other home services: No Alcohol intake: former Patient Tobacco Use Status: Never used Tobacco e-Cigarette/Vaping Use: Never Used Second Hand Smoke Exposure: No Use of substances other than those prescribed or required for medical reasons: No Have you been hit, kicked, punched, or otherwise hurt by someone within the past year? If so, by whom?: No Are you DNR?: No Advance Directives: No Advance Directives Information Provided: Yes Advance Directives on File: No Recently lost weight without trying: No Nutrition Risks: No Nutritional Risk Patient : No : No Poor oral hygiene: No Current occupational status: employed Cognitive needs: No Hearing needs: No Vision needs: No Meds Allergies Allergy/AdvReac Type Severity Reaction Status Date / Time No Known Allergies Allergy Verified 01/30/23 08:28 [No Known Allergies*] Home Medications Medication Instructions Recorded Confirmed Last Taken Type CPAP 10/25/22 02/07/23 Unknown History sertraline 50 mg tablet 100 mg PO DAILY 11/21/22 02/07/23 Unknown History Exam Height,Weight and Vital Signs: Height 5 ft 9 in Weight 97.069 kg Vital Signs Temp Pulse Resp BP Pulse Ox O2 Del Method 02/07/23 06:35 97.3 F 59 16 109/67 95 Room Air Airway Mallampati Class: II TM Dist: >3cm Neck ROM: Full Loose/Missing/Broken Teeth: No (Bridge bottom left back. Denies broken, loose, missing teeth) Heart: RRR Lungs: CTAB Assessment and Plan Assessment Anesthesia Assessment: Anesthesia Plan Discussed Final Anesthetic Review Family History of Problems with Anesthesia: No History of Problems with Anesthesia: No NPO: Yes ASA Class: III Final Preanesthetic Review: No Changes in Pt Med Stat, Meds/Allgs Chart Reviewed, Consent Obtained/Reviewed and Anes Risks/Benef Reviewed Patient Risk: Intermediate Procedure Risk: Intermediate Assessment/Block/Sedation in SS: Assess/Block/Sedation-SS Anesthetic Plan Anesthetic Plan: GA Disposition: Standard PACU and Inp. Admit - Standard Bed
[2023-02-06 15:05] LABS: COVID-19 Test Negative (Negative); IDNOW Serial# 08D9AD1C
[2023-02-07] VITALS (12 sets, daily range): BP systolic 90–146; BP diastolic 51–84; PULSE 54–77; RESP 16–18; TEMP 36–36.3; O2SAT 94–99
[2023-02-07 01:28] LABS: Zinc 67 mcg/dL (60-130)
[2023-02-07] MEDS: Lactated Ringers 1,000 ML 150 ML IVCONT (06:36)
[2023-02-07] MEDS: Aprepitant 32 MG/4.4 ML VIAL IVPUSH (06:36)
--- NOTE | 2023-02-07 10:25 | PM.DS ---
DS: Providers Provider Date of Service: 02/08/23 Date of admission: 02/07/23 06:00 Primary care physician: Brent Camarena [facility] DS: Summary Hospital Course Hospital Course: ADMITTING DIAGNOSIS: morbid obesity,?JUAN, gastroparesis, chronic abdominal pain, PACs/PVCs, depression ? DISCHARGE DIAGNOSIS: same, s/p laparoscopic sleeve gastrectomy and repair diaphragmatic hernia ? PAST SURGICAL HISTORY:?, open heart surgery for atrial myxoma ? PROCEDURE: upper endoscopy, laparoscopic sleeve gastrectomy and gastropexy ? DISCHARGE SUMMARY: ? History of Present Illness: ? The patient is a? 52? year-old woman with a BMI of? ?31.6 ? kg/m2 and associated co-morbidities as described above. The patient had extensive work-up, lost? ?31 ? lbs preoperatively and was electively scheduled for laparoscopic, possible open sleeve gastrectomy and gastropexy. Risks and complications of the surgery were discussed with the patient in advance, particularly the possibility of , pulmonary embolism, anastomotic leak, bleeding, bowel injury, GERD, cardiac, renal or pulmonary complications. The patient understood all the risks and was in agreement with the surgical plan. ? Hospital Course: ? The patient underwent an uneventful laparoscopic sleeve gastrectomy with gastropexy on the day of admission. Postoperatively, the patient was transferred to the surgical floor. The patient received IV Acetaminophen and IV dilaudid for pain control. Patient was started on bariatric phase 1 diet POD #0. On postoperative day one, the patient was feeling well without nausea, vomiting, fevers, or tachycardia. The patient had some mild incisional pain and the abdomen was soft.? ? On the morning of postoperative day one, the patient was continued on 1 ounce of water or ice every half hour. During the day, the patient did fairly well, having some incisional pain, but able to ambulate adequately and to tolerate liquids well. ? Since the patient is doing well, we decided that the patient was ready to be discharged. The patient was given instructions to follow-up with me next week and to call my office for any fever over 101, persistent abdominal pain, nausea, vomiting, GERD, symptoms of DVT such as calf tenderness, or leg swelling, or pulmonary embolism such as chest pain or shortness of breath.? The patient was also instructed to drink 40-60 ounces of liquids per day using the 1-ounce cups. The patient had been given prescriptions for Tylenol for pain, Zofran prn for nausea, and pantoprazole and carafate previously. The patient was encouraged to ambulate and use the incentive spirometer. The patient was allowed to shower, but no baths, and encouraged to stay active at home. All of these instructions were given to the patient personally. All questions were answered and the patient understood all instructions, the instructions were also given to the patient in print. Time Spent with Patient Time attestation: Total time managing care of this patient today ____ minutes. Discharge coordination time: Less than 30 minutes Quality: Safe Use of Opioids Does Pt have an Active Cancer Diagnosis on the Problem List?: No Quality: Stroke Does the patient have a stroke diagnosis?: No Physical Exam Vital Signs: Vital Signs: Last Vital Signs Temp 97.1 F 02/07/23 10:23 Pulse 71 02/07/23 10:23 Resp 16 02/07/23 10:23 BP 108/56 L 02/07/23 10:23 Pulse Ox 98 02/07/23 10:23 O2 Del Method Nasal Cannula wit h Capnography 02/07/23 10:23 O2 Flow Rate 3 02/07/23 10:23 BMI result Body Mass Index 31.6 DS: Data Data Completed and Pending Pending studies at discharge: Pending at discharge 02/07/23 09:01 Surgical [PTH] Routine Labs on day of discharge: Laboratory Results - last 24 hr 02/02/23 02/06/23 07:55 14:43 Zinc 67 COVID-19 (ADDIE) Negative COVID-19 Clin Com See Note Discharge Plan Discharge Anticipated Discharge Date/Time: 02/08/23 10:00 Patient Disposition: Home, Self-Care Discharge Diagnosis: s/p laparoscopic sleeve gastrectomy with gastropexy Referrals: Brent Camarena, [id number] [Primary Care Provider] - 1 Week Discharge Medications: Continued (DME) CPAP Device See Rx Instructions .Route Rx Instructions: As directed sertraline 50 mg tablet 100 mg PO DAILY sucralfate 100 mg/mL suspension 10 ml PO BID 30 Days Qty: 600 2RF ondansetron HCl 4 mg tablet 4 mg PO Q6H PRN (Reason: nausea and vomiting) Qty: 20 0RF pantoprazole 40 mg tablet,delayed release (DR/EC) 40 mg PO QAM 30 Days Qty: 30 2RF acetaminophen 500 mg/15 mL liquid 500 mg PO Q6H PRN (Reason: fever or pain) Qty: 237 2RF Discontinued cholecalciferol (vitamin D3) 125 mcg (5,000 unit) capsule 125 mcg PO DAILY Qty: 90 1RF cyanocobalamin (vitamin B-12) 500 mcg tablet 500 mcg PO DAILY Qty: 60 0RF Discharge Orders: Discharge Order (Routine); Ordered 02/08/23 Ordered By: Paddy Pacheco Activity on Discharge: No heavy lifting Stand Alone Forms: Patient Portal Discharge page Care Plan Goals: weight loss Health Concerns: obesity Plan of Treatment: No tub baths, sex or returning to work until discussed at first post op appointment. No alcohol, tobacco or illegal drug use. Continue to use incentive spirometer hourly while awake. Walk in home for 5- 10 minutes every 2 hours during the first week. Wear abdominal binder with activity. Follow all meal plan instructions from your bariatric surgeon. Review bariatric handbook and call with any questions. Discharge Instructions 1. Please call your doctor or come back to the emergency room should any new symptoms arise. 2. Activity: abstain from alcohol,? limited stair climbing, no bending, no driving, no exercise, no illicit substances, no lifting, no sex, no tub bath, no work. 4. Diet: follow your bariatric surgeons recommendations for advancing diet. 5. Dressing Change/Wound Care: Your incisions are covered with waterproof dressings. You can shower with these and pat dry. Do not rub over dressings or incisions. If the area is tender, you may apply an ice pack for short intervals (no more than 20 minutes on, followed by at least 20 minutes off). Do not apply heat. Do not use creams, lotions, or topical antibiotics unless instructed to do so by your surgeon. 6. Call your doctor if: - Your temperature exceeds 101.5 F - You experience excessive pain or swelling - You have an unexpected reaction to medication - You have excessive bleeding - You experience continued vomiting/nausea - Your incision begins to separate - Your incision shows signs of infection such as increased redness, swelling, excessive pain, heat, or drainage (light blood or clear fluid is normal) General instructions: No lifting greater than 10 lbs for the next 6 weeks. No driving within 24 hours of taking narcotic pain medications. If you do not move your bowels in the next 2 days, please take milk of magnesia over the counter. Please follow the post op diet and do not advance your diet until you are seen in the office in about 2 weeks. Please walk around your home every hour or two to prevent blood clots from forming in your legs. You do not need to wake from sleeping to walk. Please sleep in a bed or couch to prevent kinking at the hips and knees. Please take your incentive spirometer (your lung master plumber) home with you and use it for the next few days to prevent pneumonias. You may shower, no hot tubs, baths or swimming pools. Please call the office with any questions or concerns such as increasing abdominal pain, fever, chills, shortness of breath, chest pain, leg pain or swelling, or redness or drainage from your incisions. Please make sure you are consuming 40-60 ounces of total fluids per day. Avoid all carbonation. Do not hesitate to contact the office with any questions at . The patient's medical history has been reviewed and they are considered low risk for post op DVT and therefore DVT prophylaxis is not considered necessary. Travel after surgery was reviewed. The patient has not disclosed any travel plans during the first 30 days after surgery and they have been advised that within the first 30 days after surgery any bus, plane, train or car travel over 2 hours in duration is contraindicated due to the possibility of developing blood clots from immobility. Any travel, needs to include periods of ambulation of 10 minutes in duration every 2 hours.? The patient was instructed to discuss any plans for travel during this period with their bariatric surgeon. Assessment: s/p laparoscopic sleeve gastrectomy with gastropexy Discharge Date/Time: 02/08/23 09:44
[2023-02-07] MEDS: Lactated Ringers 1,000 ML 100 ML IVCONT ×2 (10:53→19:19)
[2023-02-07 11:31] LABS: Hemoglobin 13.8 g/dl (12.0-16.0)
[2023-02-07 11:44] LABS: Anion Gap 13 (12-20); Blood Urea Nitrogen 14 mg/dL (9-16); Calcium 9.1 mg/dL (8.4-10.2); Carbon Dioxide 25 mmol/L (22-29); Chloride 104 mmol/L (96-108); Estimated Glomerular Filt Rate > 60; Glucose Random 150 mg/dL (60-115); Potassium 3.6 mmol/L (3.3-5.1); Sodium 138 mmol/L (135-145)
[2023-02-07] MEDS: ceFAZolin Sodium/Dextrose,Iso 2 GM/50 ML PIGGYBACK IV (13:07)
[2023-02-07] MEDS: Acetaminophen 1,000 MG/100 ML PIGGYBACK 16.7 MG IV ×2 (13:48→19:18)
--- NOTE | 2023-02-07 15:46 | PM.PNGS ---
Subjective Subjective Date of Service: 02/07/23 Patient reports: feels better, still having pain and tolerating liquids well Interval history: The patient is doing well. She denies any dysphagia, odynophagia, GERD and is sipping water. She has expected incisional as well as neck/shoulder pain. She denies any shortness of breath. Physical Exam Vital Signs: Vital Signs: Last Vital Signs Temp 97.0 F 02/07/23 11:12 Pulse 64 02/07/23 11:12 Resp 18 02/07/23 11:12 BP 104/57 L 02/07/23 11:12 Pulse Ox 97 02/07/23 11:12 O2 Del Method Room Air 02/07/23 11:12 O2 Flow Rate 2 02/07/23 10:38 BMI result Body Mass Index 31.6 On exam she is nontoxic She is in no respiratory distress Expected incisional tenderness is present Objective Data Active Medications Famotidine (Famotidine/Pf 20 Mg/2 Ml Vial) 20 mg IVPUSH BID ANNIA Hydromorphone HCl (Hydromorphone Hcl 0.5 Mg/0.5 Ml Syringe) 0.25 mg IVPUSH Q4H PRN; Protocol PRN Reason: Pain, Moderate(Pain Scale 4-6) Lactated Ringer's (Lr) 1,000 mls @ 100 mls/hr IVCONT .Q10H [facility] Last Admin: 02/07/23 10:53 Dose: 100 mls/hr Documented By: DANGELJodie Acetaminophen (Ofirmev) 1,000 mg in 100 mls @ 16.7 mls/hr IV .Q6H [facility] Last Admin: 02/07/23 13:48 Dose: 16.7 mls/hr Documented By: XOCHILT Metoclopramide HCl (Metoclopramide Hcl 10 Mg/2 Ml Vial) 10 mg IVPUSH Q6H PRN PRN Reason: Nausea Ondansetron HCl (Ondansetron Hcl 4 Mg/2 Ml Vial) 4 mg IVPUSH Q8H [facility] Last Admin: 02/07/23 11:36 Dose: Not Given Documented By: XOCHILT Non-Admin Reason: given in pacu Sertraline HCl (Sertraline Hcl 100 Mg Tablet) 100 mg PO DAILY [facility] Sodium Chloride (0.9 % Sodium Chloride Flush 3 Ml Syringe) 3 ml IVFLUSH QSHIFT [facility] Last Admin: 02/07/23 13:21 Dose: Not Given Documented By: XOCHILT Non-Admin Reason: IV Running Labs 02/07/23 11:15 02/07/23 11:15 Labs: Laboratory Results - last 24 hr 02/02/23 02/07/23 07:55 11:15 Anion Gap 13 Estim Creat Clear Calc 109.0 Estimated GFR > 60 Random Glucose 150 H Calcium 9.1 D Zinc 67 Procedures Date of Service Date of Service: 02/07/23 Progress Note: A&P Assessment and plan (1) History of sleeve gastrectomy: Status: Acute (2) Obesity (BMI 30-39.9): Status: Acute (3) Class 1 obesity due to excess calories with body mass index (BMI) of 30.0 to 30.9 in adult: Status: Acute (4) JUAN (obstructive sleep apnea): Status: Acute (5) PVC (premature ventricular contraction): Status: Acute Plan Encourage hydration Encourage ambulation Trend labs and exam see orders Time Spent With Patient Time: Total time managing care of this patient today ____ minutes. Quality Stroke Does the patient have a stroke diagnosis?: No VTE Prior VTE?: No VTE Risk Level:: Surgical - moderate VTE Device Contraindication: N/A - Device Ordered VTE Drug Contraindication: Treatment Not Indicated
[2023-02-07] MEDS: ondansetron HCL 4 MG/2 ML VIAL IVPUSH (18:00)
[2023-02-07] MEDS: 0.9 % Sodium Chloride Flush 3 ML SYRINGE IVFLUSH (19:19)
[2023-02-07] MEDS: Famotidine/PF 20 MG/2 ML VIAL IVPUSH (19:19)
[2023-02-08] MEDS: Acetaminophen 1,000 MG/100 ML PIGGYBACK 16.7 MG IV (01:29)
[2023-02-08 03:09] VITALS: BP 112/57; PULSE 57; RESP 16; TEMP 36; O2SAT 95
[2023-02-08] MEDS: ondansetron HCL 4 MG/2 ML VIAL IVPUSH (03:09)
[2023-02-08] MEDS: Lactated Ringers 1,000 ML 100 ML IVCONT (05:16)
[2023-02-08 06:21] LABS: MANUAL DIFF FLAG NO
[2023-02-08 06:41] LABS: Basophils Percent Auto 0.3 % (0-2); Eosinophils Percent Auto 0.1 % (0-4); Hematocrit 39.4 % (37.0-47.0); Hemoglobin 12.9 g/dl (12.0-16.0); Imm Gran Abs Auto 0.03 X10*3/uL (0.00-0.03); Imm Gran Pct Auto 0.3 % (0.0-0.4); Lymphocytes Absolute Auto 1.8 X10*3/uL (1.2-4.9); Lymphocytes Percent Auto 16.3 % (20-40); Mean Corpuscular HGB Conc 32.7 g/dl (31.0-35.0); Mean Corpuscular Hemoglobin 29.2 pg (27.0-33.0); Mean Corpuscular Volume 89.1 fL (80.0-98.0); Mean Platelet Volume 13.8 fL (9.4-12.3); Monocytes Absolute Auto 1.1 X10*3/uL (0.1-1.2); Monocytes Percent Auto 10.2 % (2-11); Neutrophils Absolute Auto 7.9 x10*3/uL (2.0-8.3); Neutrophils Percent Auto 72.8 % (45-73); Platelet Count 147 X10*3/uL (160-400); Red Blood Count 4.42 X10*6/uL (4.20-5.50); Red Cell Distribution Width 13.9 % (11.0-16.0); White Blood Count 10.9 X10*3/uL (4.8-10.8)
[2023-02-08 06:42] LABS: Anion Gap 12 (12-20); Blood Urea Nitrogen 10 mg/dL (9-16); Calcium 9.4 mg/dL (8.4-10.2); Carbon Dioxide 25 mmol/L (22-29); Chloride 104 mmol/L (96-108); Creatinine Clr Calc Pharmacy 113.6; Estimated Glomerular Filt Rate > 60; Glucose Random 86 mg/dL (60-115); Potassium 4.2 mmol/L (3.3-5.1); Sodium 137 mmol/L (135-145)
--- NOTE | 2023-02-08 06:46 | P.PNGS_ITS ---
Subjective Subjective Date of Service: 02/08/23 Patient reports: feels better and tolerating liquids well Interval history: The patient reports that she is doing well and tolerating liquids. She appears to be meeting hydration goals, has been out of bed and walking and at 15:00 on her incentive spirometer. She denies any chest pain, neurologic symptoms and is anxious to be discharged home. She did have a question regarding a leak test before discharge which I explained we do not routinely perform since 1 was done yesterday in the operating room. Physical Exam Vital Signs: Vital Signs: Last Vital Signs Temp 96.8 F 02/08/23 03:09 Pulse 57 02/08/23 03:09 Resp 16 02/08/23 03:09 BP 112/57 L 02/08/23 03:09 Pulse Ox 95 02/08/23 03:09 O2 Del Method CPAP 02/08/23 03:09 O2 Flow Rate 2 02/07/23 10:38 BMI result Body Mass Index 31.6 On exam she is nontoxic She is in no acute respiratory distress She is expected incisional tenderness and binder is intact. Objective Data Active Medications Famotidine (Famotidine/Pf 20 Mg/2 Ml Vial) 20 mg IVPUSH BID [facility] Last Admin: 02/07/23 19:19 Dose: 20 mg Documented By: BANDAR Hydromorphone HCl (Hydromorphone Hcl 0.5 Mg/0.5 Ml Syringe) 0.25 mg IVPUSH Q4H PRN; Protocol PRN Reason: Pain, Moderate(Pain Scale 4-6) Lactated Ringer's (Lr) 1,000 mls @ 100 mls/hr IVCONT .Q10H [facility] Last Admin: 02/08/23 05:16 Dose: 100 mls/hr Documented By: BANDAR Acetaminophen (Ofirmev) 1,000 mg in 100 mls @ 16.7 mls/hr IV .Q6H [facility] Last Admin: 02/08/23 01:29 Dose: 16.7 mls/hr Documented By: BANDAR Metoclopramide HCl (Metoclopramide Hcl 10 Mg/2 Ml Vial) 10 mg IVPUSH Q6H PRN PRN Reason: Nausea Ondansetron HCl (Ondansetron Hcl 4 Mg/2 Ml Vial) 4 mg IVPUSH Q8H [facility] Last Admin: 02/08/23 03:09 Dose: 4 mg Documented By: BANDAR Sertraline HCl (Sertraline Hcl 100 Mg Tablet) 100 mg PO DAILY [facility] Sodium Chloride (0.9 % Sodium Chloride Flush 3 Ml Syringe) 3 ml IVFLUSH QSHIFT [facility] Last Admin: 02/08/23 06:35 Dose: Not Given Documented By: XOCHILT Non-Admin Reason: IV Running Labs 02/08/23 05:19 02/08/23 05:19 Labs: Laboratory Results - last 24 hr 02/07/23 02/08/23 02/08/23 11:15 05:19 05:19 MCV 89.1 MCH 29.2 MCHC 32.7 RDW 13.9 Plt Count 147 L MPV 13.8 H Immature Gran % (Auto) 0.3 Neut % (Auto) 72.8 Lymph % (Auto) 16.3 L Wirt % (Auto) 10.2 Eos % (Auto) 0.1 Baso % (Auto) 0.3 Lymph # (Auto) 1.8 Wirt # (Auto) 1.1 Eos # (Auto) 0.0 Baso # (Auto) 0.0 Abs Immat Gran (auto) 0.03 Absolute Neuts (auto) 7.9 Absolute Nucleated RBC 0.000 Nucleated RBC % (auto) 0.0 Anion Gap 13 12 Estim Creat Clear Calc 109.0 113.6 Estimated GFR > 60 > 60 Random Glucose 150 H 86 Calcium 9.1 D 9.4 Procedures Date of Service Date of Service: 02/08/23 Progress Note: A&P Assessment and plan (1) History of sleeve gastrectomy: Status: Acute (2) Class 1 obesity due to excess calories with body mass index (BMI) of 30.0 to 30.9 in adult: Status: Acute Plan Continue hydration Okay for discharge home. PA will review diet instructions in place discharge orders. Patient has a video call with behavioral health this Sunday and will follow-up in the office next week, sooner by text if she has problems or questions. Time Spent With Patient Time: Total time managing care of this patient today ____ minutes. Quality Stroke Does the patient have a stroke diagnosis?: No VTE Prior VTE?: No VTE Risk Level:: Surgical - moderate VTE Device Contraindication: N/A - Device Ordered VTE Drug Contraindication: Treatment Not Indicated
[2023-02-08 07:39] VITALS: O2SAT 97
[2023-02-08] MEDS: Famotidine/PF 20 MG/2 ML VIAL IVPUSH (07:42)
[2023-02-08 08:00] VITALS: BP 138/71; PULSE 52; RESP 18; TEMP 36.7; O2SAT 97
--- NOTE | 2023-02-08 09:29 | MHC.CM.PN ---
This senior technical writer met with patient for CM assessment. From home no services prior to hospitalization. Significant other to transport @ d/c. Patient is unemployed and voiced concerns about losing housing and ability to pay for food. Resources provided to patient. Plan for d/c today- home no services.
[2023-02-08 09:33] LABS: Vitamin B1 18 nmol/L (8-30)
--- NOTE | 2023-02-08 09:50 | HO.POSTANES ---
Post Anesthesia Evaluation Post Anesthesia Evaluation Date of Service: 02/08/23 Vital Signs: Vital Signs Temp Pulse Resp BP Pulse Ox O2 Del Method 02/08/23 07:39 97 Room Air 02/08/23 08:00 98.1 F 52 18 138/71 97 Room Air 02/08/23 03:09 96.8 F 57 16 112/57 L 95 CPAP 02/07/23 23:33 96.8 F 54 18 120/67 95 CPAP Anesthesia: General Endotracheal-GETA Mental Status: Awake Pain Control: Satisfactory Nausea/Vomiting: None Hydration: Adequate Anesthesia-Related Issues: No Anes. Related Issues
[2023-02-08 12:03] LABS: Vitamin A 42 mcg/dL (38-98)
== END 2023-02-08 09:44 | disposition home or self-care (01) | DRG 403 ==
LOC: HO.SSSA 06:07 → HO.S3 10:35
PROVIDERS: Physician Assistant Surgical; Admitting Provider Surgery; PCP Nurse Practitioner Family; Visit Provider Surgery
PROC: 0DB64Z3 Excision of Stomach, Percutaneous Endoscopic Approach, Vertical (ICD-10-PCS; CPT 43845; principal; 2023-02-07 07:30)
DX: E66.01 Morbid (severe) obesity due to excess calories (principal); F32.A Depression, unspecified; G47.33 Obstructive sleep apnea (adult) (pediatric); I49.3 Ventricular premature depolarization; Z20.822 Contact with and (suspected) exposure to COVID-19; Z79.899 Other long term (current) drug therapy
CPT/HCPCS: 43775; 43659; 36415; 80048; 80053; 80061; 82306; 82607; 82728; 83036; 83540; 83970; 84425; 84443; 84590; 84630; 85014; 85018; 85025; 85610; 85730; 86140; 86850; 86900; 86901; 87635; 88307; 88342; C9145; J0131; J0690; J1100; J1170; J2250; J2405; J2550; J3010

== ENCOUNTER → 2023-02-07 06:00 | Outpatient (BNV) | payer OTHER, SELFPAY | PROVIDERS: Admitting Provider Surgery; PCP Nurse Practitioner Family; Visit Provider Surgery | DX: E66.01 Morbid (severe) obesity due to excess calories (principal); Z68.31 Body mass index [BMI] 31.0-31.9, adult; G47.33 Obstructive sleep apnea (adult) (pediatric); K31.84 Gastroparesis; Z90.3 Acquired absence of stomach [part of]; Z98.84 Bariatric surgery status | CPT/HCPCS: 43659; 43775; 99024 ==

== ENCOUNTER 2023-02-09 09:30 | Outpatient (AMB) | payer OTHER, SELFPAY ==
--- NOTE | 2023-02-09 11:43 | A.OFFWM_ITS ---
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 History of ear surgery (~2015) History of esophagogastroduodenoscopy (EGD) History of open heart surgery (~03/16/16) Hx of section (~1986) Hx of colonoscopy (~05/2018) Hx of tubal ligation Family History Mother CVD (cardiovascular disease) Obesity Father Colon polyp Daughter Thyroid disease Maternal Grandfather Stomach cancer Diabetes Social History Household Members: Family Household Members Other:: adult son Housing: House Are you a primary health care specialist to a significant other at home: No Do you presently have visiting nurse or other home services: No Alcohol intake: former Patient Tobacco Use Status: Never used Tobacco e-Cigarette/Vaping Use: Never Used Second Hand Smoke Exposure: No service: No Current occupational status: employed Cognitive needs: No Hearing needs: No Vision needs: No Behavioral Health Assessment Weight Management Therapy Therapy Notes Details Pt is one day post weight loss surgery. Feeling well overall, no issues, working on getting in her liquids. Some stress due to being denied unemployment. Discus sed looking for work, what kind of work and healing. Pt is looking to have weight loss surgery to help improve her health and quality of life. She reported having pain from back issues that get worse with her weight. Pt is currently in therapy with Judith Mcdonough with [facility] ([phone]) and has a nurse prescriber who gives her medication for depression Leah Romo. No history of inpatient psychiatric admissions, no history of problems with drugs or alcohol, no history of self harming behavior or suicide attempts. She reported that she has been struggling with depression for about one year now, she had from her , sold her home, had to leave her job. Presenting Concerns Referral Source provider Reason for referral weight loss surgery evaluation Precipitating Event obesity Living Situation Current Living Situation Rent At risk of losing current housing? No Satisfied with current living situation? Yes Comments Pt lives on her own however her older son is staying with her. Food/Weight/Diet Expectations of change weight loss and maintenance History/Relationship with food Pt stated that she would skip meals during the day and would not eat until 2pm.Could have been trupti donuts sandwich, or fast food for dinner, then eating late at night. Also was drinking 4-5 large coffees a day with extra extra creamer and sugar. 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 History/Relationship with weight Pt reported at her heaviest she was around 260lbs. She lost some weight due to depression. She reported struggling with her weight all her life. After having kids she really started struggling. History/Relationship with dieting P in 2017 and went from 260 to 199 also due to having open heart surgery had to maintain healthier weight. Then pandemic and she gained some weight. Binge Eating Do you frequently eat large amounts of food in short periods of time, not feeling physically hungry? Yes Do you feel out of control when you eat a large amount of food in a short period of time? No Do you eat large amounts of food rapidly and typically alone? Yes Night Eating Do you wake up at least once during the night to eat? No If you wake up in the night, do you find that it is necessary to eat something in order to fall back asleep? Yes Do you have little or no appetite in the morning and feel very hungry in the evening, often overeating between dinner and when you go to bed? Yes Social History Family history and relationship Pt reported she is and has four children. She also has grandchildren. Pt was born and raised in [place], [place] she is one of 6 children raised by her mother and stepfather later on. Childhood was reported as normal, not a lot of love and affection though . Her mother and step father still living. Parental/Familial motor block mechanic obligations none Developmental history and status no issues known Social support kids, some friends Lutheran/Spirituality raised Mormonism but not practicing Cultural/Ethnic information Legal Involvement and History Current or historical involvement with the legal system? none known Education Highest grade completed associates degree Preferred learning style Auditory, Verbal, Written, Learn by doing and Visual Currently enrolled in educational program? No Interested in further educational program? 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 No Meaningful activities working out, plays billiards on a team, traveling Service Service? No Mental Health and Addiction Treatment Current/Past substance abuse? No Current/Past addictive behavior concerns? No Medical and Physical Health Summary Physical exam in the last year? No Pain Screening Current pain? No Pain in the last few months? No Assessment & Plan Assessment & Plan (1) Major depressive disorder, recurrent, moderate: Code(s): F33.1 - Major depressive disorder, recurrent, moderate (2) Obesity (BMI 30-39.9): Code(s): E66.9 - Obesity, unspecified Plan Pt is cleared for surgery however will be seen again to monitor depression and she should continue seeing her providers. She is doing well in the program and depression has improved per her report. Telehealth Telehealth Location of provider rendering services: other Location of patient: address on file Patient Identification confirmed using: Name, : Yes Telehealth method: video Patient verbally consented to treatment: Yes Patient verbally consented to billing insurance company: Yes Patient informed of any privacy concerns related to visit: Yes Minutes spent on Phone/Video with Pt.: 30 Coding Level of Care Code Tele Psytx 30 mins ([id number]) Diagnoses Major depressive disorder, recurrent, moderate F33.1 Obesity (BMI 30-39.9) E66.9 Time Spent (min) 30
== END 2023-02-09 11:43 | disposition home or self-care (01) ==
LOC: HO.HBST 10:14
PROVIDERS: PCP Nurse Practitioner Family; Visit Provider Counselor Mental Health
DX: F33.1 Major depressive disorder, recurrent, moderate (principal); E66.9 Obesity, unspecified
CPT/HCPCS: 90832

== ENCOUNTER → 2023-02-09 09:30 | Outpatient (BNVA) | payer OTHER, SELFPAY | PROVIDERS: PCP Nurse Practitioner Family; Visit Provider Counselor Mental Health ==

== ENCOUNTER 2023-02-13 10:21 | Outpatient (AMB) | payer OTHER, SELFPAY ==
--- NOTE | 2023-02-13 11:00 | A.OFFVIS_ITS ---
Intake VS Expanded 02/13/23 11:13 Height 5 ft 9 in Weight 205 lb BMI 30.3 BP 112/72 Blood Pressure Location Lt brachial Blood Pressure Position Sitting Pulse 61 Temp 97.8 F Temperature Source Temporal Artery Scan Pulse Oximetry 97 Oxygen Delivery Method Room Air Body Fat 82.2 Body Fat Percentage 40.2 Free Fat Mass 122.6 Muscle Mass 116.4 Visceral Mass 9.0 Water Mass 87.0 BMR 1,684 Intake Visit Reasons: (OV) 6 Days PO LSG 02/07/23 Intake Note: Patient denies complaints at this time. 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 The patient presents at a weight of 205.0 lb/BMI 30.3. The patient denies any dysphagia, odynophagia or regurgitation. She has no GERD symptoms and notes that she does feel gurgling and that she believes she is taking more than a tbsp of protein shake or water at a time. We reviewed the importance of smaller sips such as a tsp and she will work on this. She is taking 3 celebrate shakes a day as directed and tolerating them well. She otherwise has no complaints, bowels are working. 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 History of ear surgery (~2015) History of esophagogastroduodenoscopy (EGD) History of open heart surgery (~03/16/16) Hx of section (~1986) Hx of colonoscopy (~05/2018) Hx of tubal ligation Family History Mother CVD (cardiovascular disease) Obesity Father Colon polyp Daughter Thyroid disease Maternal Grandfather Stomach cancer Diabetes Social History Household Members: Family Household Members Other:: adult son Housing: House Are you a primary patient care coordinator to a significant other at home: No Do you presently have visiting nurse or other home services: No Alcohol intake: former Patient Tobacco Use Status: Never used Tobacco e-Cigarette/Vaping Use: Never Used Second Hand Smoke Exposure: No service: No Current occupational status: employed Cognitive needs: No Hearing needs: No Vision needs: No Physical Exam Vital Signs: Last Vital Signs BP 112/72 02/13/23 11:13 BMI result Body Mass Index 30.3 On exam she is in good spirits She is nontoxic She is in no acute respiratory distress Her dressings were removed in the Steri-Strips are intact with no erythema nor bruising Abdomen is soft and nontender Results Reviewed Results Reviewed: Pathology confirmed normal gastric mucosa with no dysplasia and no H pylori Assessment & Plan Assessment & Plan (1) History of sleeve gastrectomy: Code(s): Z90.3 - Acquired absence of stomach [part of] (2) Obesity (BMI 30-39.9): Code(s): E66.9 - Obesity, unspecified Plan The patient will continue the 3 celebrate shakes a day and work towards taking smaller to sips that will lead to less of an issue with air trapping. Questions regarding activity and bowel habits were reviewed. Patient will reach out to the PA later in the week regarding her shakes and diet. All see her again in 3 weeks, sooner if she is having problems and she will have a follow-up in 4-5 weeks with the PA regarding diet. Coding Level of Care Code Global (86705) Diagnoses History of sleeve gastrectomy Z90.3 Obesity (BMI 30-39.9) E66.9
[2023-02-13 11:13] VITALS: BP 112/72; PULSE 61; TEMP 36.6; O2SAT 97; BMI 30.3
== END 2023-02-13 11:25 | disposition home or self-care (01) ==
PROVIDERS: PCP Nurse Practitioner Family; Visit Provider Surgery
DX: E66.9 Obesity, unspecified (principal); Z68.30 Body mass index [BMI] 30.0-30.9, adult; Z90.3 Acquired absence of stomach [part of]; Z98.84 Bariatric surgery status
CPT/HCPCS: 99024

== ENCOUNTER → 2023-02-13 10:21 | Outpatient (BNVA) | payer OTHER, SELFPAY | PROVIDERS: PCP Nurse Practitioner Family; Visit Provider Surgery ==

== ENCOUNTER 2023-02-15 14:00 | Outpatient (AMB) | payer OTHER, SELFPAY ==
--- NOTE | 2023-02-15 14:35 | A.OFFWM_ITS ---
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 History of ear surgery (~2015) History of esophagogastroduodenoscopy (EGD) History of open heart surgery (~03/16/16) Hx of section (~1986) Hx of colonoscopy (~05/2018) Hx of tubal ligation Family History Mother CVD (cardiovascular disease) Obesity Father Colon polyp Daughter Thyroid disease Maternal Grandfather Stomach cancer Diabetes Social History Household Members: Family Household Members Other:: adult son Housing: House Are you a primary care analyst to a significant other at home: No Do you presently have visiting nurse or other home services: No Alcohol intake: former Patient Tobacco Use Status: Never used Tobacco e-Cigarette/Vaping Use: Never Used Second Hand Smoke Exposure: No service: No Current occupational status: employed Cognitive needs: No Hearing needs: No Vision needs: No Behavioral Health Assessment Weight Management Therapy Therapy Notes Details Pt several days post weight loss surgery. Feeling well overall, no issues, working on getting in her liquids. Patient is stable emotionally, no distress, feeling good energy, getting ready for her unemployement appeal. She would also like to join post op therapy group. Pt is looking to have weight loss surgery to help improve her health and quality of life. She reported having pain from back issues that get worse with her weight. Pt is currently in therapy with Judith Mcdonough with [facility] ([phone]) and has a nurse prescriber who gives her medication for depression Leah Romo. No history of inpatient psychiatric admissions, no history of problems with drugs or alcohol, no history of self harming behavior or suicide attempts. She reported that she has been struggling with depression for about one year now, she had from her , sold her home, had to leave her job. Presenting Concerns Referral Source provider Reason for referral weight loss surgery evaluation Precipitating Event obesity Living Situation Current Living Situation Rent At risk of losing current housing? No Satisfied with current living situation? Yes Comments Pt lives on her own however her older son is staying with her. Food/Weight/Diet Expectations of change weight loss and maintenance History/Relationship with food Pt stated that she would skip meals during the day and would not eat until 2pm.Could have been trupti donuts sandwich, or fast food for dinner, then eating late at night. Also was drinking 4-5 large coffees a day with extra extra creamer and sugar. 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 History/Relationship with weight Pt reported at her heaviest she was around 260lbs. She lost some weight due to depression. She reported struggling with her weight all her life. After having kids she really started struggling. History/Relationship with dieting [facility] in 2017 and went from 260 to 199 also due to having open heart surgery had to maintain healthier weight. Then pandemic and she gained some weight. Binge Eating Do you frequently eat large amounts of food in short periods of time, not feeling physically hungry? Yes Do you feel out of control when you eat a large amount of food in a short period of time? No Do you eat large amounts of food rapidly and typically alone? Yes Night Eating Do you wake up at least once during the night to eat? No If you wake up in the night, do you find that it is necessary to eat something in order to fall back asleep? Yes Do you have little or no appetite in the morning and feel very hungry in the evening, often overeating between dinner and when you go to bed? Yes Social History Family history and relationship Pt reported she is and has four children. She also has grandchildren. Pt was born and raised in [place], [place] she is one of 6 children raised by her mother and stepfather later on. Childhood was reported as normal, not a lot of love and affection though . Her mother and step father still living. Parental/Familial court bailiff or sheriff obligations none Developmental history and status no issues known Social support kids, some friends Lutheran/Spirituality raised Anabaptism but not practicing Cultural/Ethnic information Legal Involvement and History Current or historical involvement with the legal system? none known Education0 Highest grade completed associates degree Preferred learning style Auditory, Verbal, Written, Learn by doing and Visual Currently enrolled in educational program? No Interested in further educational program? 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 No Meaningful activities working out, plays billiards on a team, traveling Service Service? No Mental Health and Addiction Treatment Current/Past substance abuse? No Current/Past addictive behavior concerns? No Medical and Physical Health Summary Physical exam in the last year? No Pain Screening Current pain? No Pain in the last few months? No Assessment & Plan Assessment & Plan (1) Major depressive disorder, recurrent, moderate: Code(s): F33.1 - Major depressive disorder, recurrent, moderate (2) Obesity (BMI 30-39.9): Code(s): E66.9 - Obesity, unspecified Plan Pt is cleared for surgery however will be seen again to monitor depression and she should continue seeing her providers. She is doing well in the program and depression has improved per her report. Telehealth Telehealth Location of provider rendering services: other Location of patient: address on file Patient Identification confirmed using: Name, : Yes Telehealth method: video Patient verbally consented to treatment: Yes Patient verbally consented to billing insurance company: Yes Patient informed of any privacy concerns related to visit: Yes Minutes spent on Phone/Video with Pt.: 35 Coding Level of Care Code Tele Psytx 30 mins (47209) Diagnoses Major depressive disorder, recurrent, moderate F33.1 Obesity (BMI 30-39.9) E66.9 Time Spent (min) 25
== END 2023-02-15 14:35 | disposition home or self-care (01) ==
LOC: HO.HBST 14:29
PROVIDERS: PCP Nurse Practitioner Family; Visit Provider Counselor Mental Health
DX: F33.1 Major depressive disorder, recurrent, moderate (principal); E66.9 Obesity, unspecified
CPT/HCPCS: 90832

== ENCOUNTER → 2023-02-15 14:00 | Outpatient (BNVA) | payer OTHER, SELFPAY | PROVIDERS: PCP Nurse Practitioner Family; Visit Provider Counselor Mental Health ==

== ENCOUNTER 2023-03-06 13:25 | Outpatient (AMB) | payer OTHER, SELFPAY ==
--- NOTE | 2023-03-06 13:27 | MHC.OFFVISWM ---
Intake Intake Visit Reasons: VIDEO PO LSG 02/07/23 Allergies No Known Allergies [No Known Allergies*] Allergy (Verified 02/13/23 11:24) HPI HPI Comments History of Present Illness Details Telehealth Location of provider rendering services: [address] [place] [address] Location of patient: address on file Patient Identification confirmed using: Name, : Yes Telehealth method: video Patient verbally consented to treatment: Yes Patient verbally consented to billing insurance company: Yes Patient informed of any privacy concerns related to visit: Yes The patient comes for follow-up after laparoscopic sleeve gastrectomy on 02/06/2023.? The patient presentsedat a weight of 205.0 lb/BMI 30.3 & is unable to provide a weight today since she is travel to [place] on vacation.? The patient denies any dysphagia, odynophagia or regurgitation.? She has no GERD symptoms and notes that she does feel gurgling and that she believes she is taking more than a tbsp of protein shake or water at a time.? We reviewed the importance of smaller sips such as a tsp and she will work on this.? She notes she is having issues regarding constipation and the 2 senna that she was recommended to take or not helping.. She is tolerating her protein shakes & bar as a day as directed and tolerating them well.? She otherwise has no complaints, bowels are working.? 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 History of ear surgery (~2015) History of esophagogastroduodenoscopy (EGD) History of open heart surgery (~03/16/16) Hx of section (~1986) Hx of colonoscopy (~05/2018) Hx of tubal ligation Family History Mother CVD (cardiovascular disease) Obesity Father Colon polyp Daughter Thyroid disease Maternal Grandfather Stomach cancer Diabetes Social History Household Members: Family Household Members Other:: adult son Housing: House Are you a primary wound care coordinator to a significant other at home: No Do you presently have visiting nurse or other home services: No Alcohol intake: former Patient Tobacco Use Status: Never used Tobacco e-Cigarette/Vaping Use: Never Used Second Hand Smoke Exposure: No service: No Current occupational status: employed Cognitive needs: No Hearing needs: No Vision needs: No Review of Systems Const All systems reviewed & are unremarkable except as noted in HPI and below Reports as per HPI Physical Exam Patient was unable to provide weight or other vitals due to the tele visit Results Reviewed Results Reviewed: Pathology confirmed normal gastric mucosa with no dysplasia and no H pylori Assessment & Plan Assessment & Plan (1) History of sleeve gastrectomy: Code(s): Z90.3 - Acquired absence of stomach [part of] (2) Chronic idiopathic constipation: Code(s): K59.04 - Chronic idiopathic constipation (3) JUAN (obstructive sleep apnea): Comment: intermittent CPAP use Code(s): G47.33 - Obstructive sleep apnea (adult) (pediatric) Plan Patient is advised to purchase [id number] docusate, 100 mg and take 2 tablets in the morning and 2 tablets in the evening. In addition, milk of magnesia, 30 cc followed by 6-8 oz of water taken at night was also recommended. Patient can continue the senna. The importance of adequate hydration and increased activity while flying to try to mitigate the risk of DVT and PE was discussed with the patient. She did not indicate that this was an unexpected/emergent trip. The patient will see me in 2 months and will reach out if she needs adjustment of her bowel medicine for constipation; she will see Heike Reynoso, our dietitian in follow-up in the next couple weeks. Coding Level of Care Code Global (33690) Diagnoses History of sleeve gastrectomy Z90.3 Chronic idiopathic constipation K59.04 JUAN (obstructive sleep apnea) G47.33
== END 2023-03-06 13:48 | disposition home or self-care (01) ==
LOC: HO.HBS 13:25
PROVIDERS: PCP Nurse Practitioner Family; Visit Provider Surgery
DX: Z90.3 Acquired absence of stomach [part of] (principal); K59.04 Chronic idiopathic constipation; G47.33 Obstructive sleep apnea (adult) (pediatric)
CPT/HCPCS: 99024

== ENCOUNTER → 2023-03-06 13:25 | Outpatient (BNVA) | payer OTHER, SELFPAY | PROVIDERS: PCP Nurse Practitioner Family; Visit Provider Surgery ==

== ENCOUNTER 2023-03-15 13:43 | Outpatient (AMB) | payer OTHER, SELFPAY ==
--- NOTE | 2023-03-15 14:02 | MHC.OFFVISWM ---
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 Presents for 5 week post op visit. Weight today is 195.6 pounds, with a BMI of 28.9. There has been a 49.8 pound weight loss,(initial weight 245.4 pounds) since starting the program on 10/31/22 reflecting a 20.2% total body weight loss and a weight loss of 17.8 pounds since surgery (operative weight 213.4 pounds) reflecting a 8.3% TBWL since surgery. No complaints of nausea, emesis, abdominal pain or reflux. Reports infrequent but normal bowel movements every [] days and uses stool softeners regularly. Wants food, satisfied with celebrate shakes Present meal plan includes: 2 celebrate 4 in 1 2 scoops in 8 oz 1 % milk, 10-12, 5-7 ZP bar 1-3 drinkin oz water ? 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 History of ear surgery (~2015) History of esophagogastroduodenoscopy (EGD) History of open heart surgery (~03/16/16) Hx of section (~1986) Hx of colonoscopy (~05/2018) Hx of tubal ligation Family History Mother CVD (cardiovascular disease) Obesity Father Colon polyp Daughter Thyroid disease Maternal Grandfather Stomach cancer Diabetes Social History Household Members: Family Household Members Other:: adult son Housing: House Are you a primary field care advocate to a significant other at home: No Do you presently have visiting nurse or other home services: No Alcohol intake: former Patient Tobacco Use Status: Never used Tobacco e-Cigarette/Vaping Use: Never Used Second Hand Smoke Exposure: No service: No Current occupational status: employed Cognitive needs: No Hearing needs: No Vision needs: No Physical Exam Vital Signs: Last Vital Signs Temp 97.4 F 03/15/23 14:06 Pulse 63 03/15/23 14:06 BP 110/53 L 03/15/23 14:06 Pulse Ox 97 03/15/23 14:06 Oxygen Delivery Method Room Air 03/15/23 14:06 BMI result Body Mass Index 28.9 Const General: healthy appearing and no acute distress Resp Effort & Inspection: normal respiratory effort Auscultation: clear to auscultation bilaterally Cardio Rate: regular rate Rhythm: regular rhythm GI Inspection: Yes incision (healed well, tiny scab lat incs bilat) Auscultation: normal bowel sounds Extrem General: Yes normal to inspection Assessment & Plan Assessment & Plan (1) Overweight (BMI 25.0-29.9): Code(s): E66.3 - Overweight Plan: change meal plan to 2 celebrate 4 in 1 shakes 2 scoops each in unsweetened almond milk meal 4 forks dark meat chicken or white flesh fish and 2-3 forks cooked veg (up to 6 forks protein and 4 forks veg) over the next month if tolerated may add in shellfish, salmon, white meat chicken and then lean pork at 2 months continue fluids increase cardio slightly if possible rtc [address] Bergman and then RAMON Medications: Refilled sennosides (senna) 17.2 mg (2 x 8.6 mg) PO BEDTIME PRN 30 tabs 2RF constipation Coding Level of Care Code Global (50693) Diagnoses Overweight (BMI 25.0-29.9) E66.3
[2023-03-15 14:06] VITALS: BP 110/53; PULSE 63; TEMP 36.3; O2SAT 97; BMI 28.9
== END 2023-03-15 14:41 | disposition home or self-care (01) ==
PROVIDERS: PCP Nurse Practitioner Family; Visit Provider Physician Assistant Surgical
DX: E66.3 Overweight (principal); Z68.28 Body mass index [BMI] 28.0-28.9, adult; Z90.3 Acquired absence of stomach [part of]; Z98.84 Bariatric surgery status
CPT/HCPCS: 99024

== ENCOUNTER → 2023-03-15 13:43 | Outpatient (BNVA) | payer OTHER, SELFPAY | PROVIDERS: PCP Nurse Practitioner Family; Visit Provider Physician Assistant Surgical ==

== ENCOUNTER 2023-04-02 09:00 | Outpatient (AMB) | payer OTHER, SELFPAY ==
--- NOTE | 2023-04-02 09:02 | A.OFFVIS_ITS ---
Intake VS Expanded 04/02/23 09:10 Height 5 ft 9 in Weight 189 lb 6.4 oz BMI 28.0 BP 116/58 L Blood Pressure Location Rt brachial Blood Pressure Position Sitting Pulse 68 Pulse Source Pulse Oximeter Temp 96.1 F L Temperature Source Tympanic Pulse Oximetry 96 Oxygen Delivery Method Room Air Body Fat 66.0 Body Fat Percentage 34.8 Free Fat Mass 123.4 Muscle Mass 117.2 Visceral Mass 8.0 Water Mass 87.8 BMR 1,667 Intake Visit Reasons: (OV) PO LSG 02/07/23 Biomedical Engineering Technician Required: No Dealership Manager: Dealership Manager offered & declined Allergies No Known Allergies [No Known Allergies*] Allergy (Verified 04/02/23 09:04) Medication List - Last Reconciled 04/02/23 by Maury Bergman MD bisacodyl (Dulcolax (bisacodyl)) 10 mg IN DAILY PRN CPAP As directed pantoprazole 40 mg PO QAM 30 days sennosides (senna) 17.2 mg (2 x 8.6 mg) PO BEDTIME PRN sertraline 100 mg PO DAILY sucralfate 10 mL PO BID 30 days HPI HPI Comments History of Present Illness Details This?a?52?yo female who is s/p LSG without hiatal hernia repair on?02/07/23. Presents for 5 week post op visit. Weight today is 189.4 pounds, with a BMI of 28.0. There has been a 50 pound weight loss,(initial weight 245.4 pounds) since starting the program on 10/31/22 reflecting a 20.2% total body weight loss and a weight loss of 17.8 pounds since surgery (operative weight 213.4 pounds) reflecting a 8.3% TBWL since surgery. The patient denies any GERD, odynophagia, dysphagia, regurgitation. She does report gurgling when eating solid food and notes that she is having sign ificant issues with depression due to life stressors at the time and not following her meal plan. She notes that she stop taking the shakes. She is occasionally taking stone perfect bars. Present meal plan includes: 2 celebrate 4 in 1 2 scoops in 8 oz 1 % milk, 10-12, 5-7 ZP bar 1-3 drinkin oz water ? Exercise routine includes: Pt hasn't exercised for 3 days d/t depression gym, weights then cardio, 200 calories, dog walking The patient has a follow-up with her mental health care provider regarding her depression in the next week or so but asked if Kaykay had any availability and a sked me to help facilitate evaluation. 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 History of esophagogastroduodenoscopy (EGD) H/O excision of mass (~03/16/16) History of ear surgery (~2015) Hx of colonoscopy (~05/2018) History of open heart surgery (~03/16/16) Hx of section (~1986) Family History Mother CVD (cardiovascular disease) Obesity Father Colon polyp Daughter Thyroid disease Maternal Grandfather Stomach cancer Diabetes Social History Household Members: Family Household Members Other:: adult son Housing: House Are you a primary manager primary care to a significant other at home: No Do you presently have visiting nurse or other home services: No Alcohol intake: former Patient Tobacco Use Status: Never used Tobacco e-Cigarette/Vaping Use: Never Used Second Hand Smoke Exposure: No service: No Current occupational status: employed Cognitive needs: No Hearing needs: No Vision needs: No Review of Systems Const All systems reviewed & are unremarkable except as noted in HPI and below Reports as per HPI Physical Exam On exam, she is anicteric and nontoxic She is in no acute respiratory distress She seems to be in surprisingly good spirits Assessment & Plan Assessment & Plan (1) History of sleeve gastrectomy: Code(s): Z90.3 - Acquired absence of stomach [part of] (2) Overweight (BMI 25.0-29.9): Code(s): E66.3 - Overweight (3) Depression: Code(s): F32.9 - Major depressive disorder, single episode, unspecified Plan The importance of following the meal plan to optimize surgical weight loss as well as exercise was again reviewed with the patient. I have instructed her to resume her meal plan: Celebrate 4 in 1, 2 scoops with a almond milk twice a day Zone perfect Bar Adequate hydration, in excess of 50 oz of water Patient is also instructed to make her forks smaller in eat slower since it sounds like she is experiencing air trapping due to the gurgling. She denies any GERD or other symptoms related to a functional problem with the sleeve. Will include Kaykay in behavioral health as requested by the patient and see the patient back in 1 month. The importance of exercise was reviewed. Patient is cleared and has no activity restrictions at this point; she notes that she believes she was told that she cannot do any weightlifting or core exercises for 3 months after surgery. This was clarified and she will gradually increase her weightlifting and core exercise. Coding Level of Care Code Global (38628) Diagnoses History of sleeve gastrectomy Z90.3 Overweight (BMI 25.0-29.9) E66.3 Depression F32.9
[2023-04-02 09:10] VITALS: BP 116/58; PULSE 68; TEMP 35.6; O2SAT 96; BMI 28.0
== END 2023-04-02 09:31 | disposition home or self-care (01) ==
PROVIDERS: PCP Nurse Practitioner Family; Visit Provider Surgery
DX: E66.3 Overweight (principal); Z68.28 Body mass index [BMI] 28.0-28.9, adult; Z90.3 Acquired absence of stomach [part of]; Z98.84 Bariatric surgery status; F32.9 Major depressive disorder, single episode, unspecified
CPT/HCPCS: 99024

== ENCOUNTER → 2023-04-02 09:00 | Outpatient (BNVA) | payer OTHER, SELFPAY | PROVIDERS: PCP Nurse Practitioner Family; Visit Provider Surgery ==

== ENCOUNTER 2023-04-19 12:05 | Outpatient (AMB) | payer OTHER, SELFPAY ==
--- NOTE | 2023-04-23 14:29 | MHC.WMTHER ---
Intake Intake Visit Reasons: VIDEO PO LSG 02/07/23 Allergies No Known Allergies [No Known Allergies*] Allergy (Verified 04/02/23 09:04) PFSH Medical History Fatty liver Leg pain, left Lumbar disc herniation IUD (intrauterine device) in place Migraines Anxiety Class 1 obesity due to excess calories with body mass index (BMI) of 30.0 to 30.9 in adult BMI 33.0-33.9,adult Chest wall contusion Abnormal biliary HIDA scan JUAN (obstructive sleep apnea) PVC (premature ventricular contraction) Atrial myxoma Family history of polyps in the colon Right sided abdominal pain Thrombocytopenia Surgical History Hx of laparoscopic partial gastrectomy Hx of tubal ligation 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 History of esophagogastroduodenoscopy (EGD) H/O excision of mass (~03/16/16) History of ear surgery (~2015) Hx of colonoscopy (~05/2018) History of open heart surgery (~03/16/16) Hx of section (~1986) Family History Mother CVD (cardiovascular disease) Obesity Father Colon polyp Daughter Thyroid disease Maternal Grandfather Stomach cancer Diabetes Social History Household Members: Family Household Members Other:: adult son Housing: House Are you a primary prompt care rn to a significant other at home: No Do you presently have visiting nurse or other home services: No Alcohol intake: former Patient Tobacco Use Status: Never used Tobacco e-Cigarette/Vaping Use: Never Used Second Hand Smoke Exposure: No service: No Current occupational status: employed Cognitive needs: No Hearing needs: No Vision needs: No Behavioral Health Assessment Weight Management Therapy Therapy Notes Details Pt is a few months post surgery. She reported sig. increase in depression. She found out recently that her that she is from but was good friends with, has been sleeping with a friend of hers. Patient reported sig. anger and loss. Pt is looking to have weight loss surgery to help improve her health and quality of life. She reported having pain from back issues that get worse with her weight. Pt is currently in therapy with Judith Mcdonough with [facility] ([phone]) and has a nurse prescriber who gives her medication for depression Leah Romo. No history of inpatient psychiatric admissions, no history of problems with drugs or alcohol, no history of self harming behavior or suicide attempts. She reported that she has been struggling with depression for about one year now, she had from her , sold her home, had to leave her job. Presenting Concerns Referral Source provider Reason for referral weight loss surgery evaluation Precipitating Event obesity Living Situation Current Living Situation Rent At risk of losing current housing? No Satisfied with current living situation? Yes Comments Pt lives on her own however her older son is staying with her. Food/Weight/Diet Expectations of change weight loss and maintenance History/Relationship with food Pt stated that she would skip meals during the day and would not eat until 2pm.Could have been trupti donuts sandwich, or fast food for dinner, then eating late at night. Also was drinking 4-5 large coffees a day with extra extra creamer and sugar. 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 History/Relationship with weight Pt reported at her heaviest she was around 260lbs. She lost some weight due to depression. She reported struggling with her weight all her life. After having kids she really started struggling. History/Relationship with dieting [facility] in 2017 and went from 260 to 199 also due to having open heart surgery had to maintain healthier weight. Then pandemic and she gained some weight. Binge Eating Do you frequently eat large amounts of food in short periods of time, not feeling physically hungry? Yes Do you feel out of control when you eat a large amount of food in a short period of time? No Do you eat large amounts of food rapidly and typically alone? Yes Night Eating Do you wake up at least once during the night to eat? No If you wake up in the night, do you find that it is necessary to eat something in order to fall back asleep? Yes Do you have little or no appetite in the morning and feel very hungry in the evening, often overeating between dinner and when you go to bed? Yes Social History Family history and relationship Pt reported she is and has four children. She also has grandchildren. Pt was born and raised in [place], [place] she is one of 6 children raised by her mother and stepfather later on. Childhood was reported as normal, not a lot of love and affection though . Her mother and step father still living. Parental/Familial bus driver/monitor obligations none Developmental history and status no issues known Social support kids, some friends Mandaeism/Spirituality raised Latter Day but not practicing Cultural/Ethnic information Legal Involvement and History Current or historical involvement with the legal system? none known Education Highest grade completed associates degree Preferred learning style Auditory, Verbal, Written, Learn by doing and Visual Currently enrolled in educational program? No Interested in further educational program? 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 No Meaningful activities working out, plays billiards on a team, traveling Service Service? No Mental Health and Addiction Treatment Current/Past substance abuse? No Current/Past addictive behavior concerns? No Medical and Physical Health Summary Physical exam in the last year? No Pain Screening Current pain? No Pain in the last few months? No Assessment & Plan Assessment & Plan (1) Major depressive disorder, recurrent, moderate: Code(s): F33.1 - Major depressive disorder, recurrent, moderate (2) Obesity (BMI 30-39.9): Code(s): E66.9 - Obesity, unspecified Plan Patient has a recent and remote history of depression per her report. She has been struggling to manage mood symptoms often exacerbated by personal and work relationships. Kenyetta recently had bariatric surgery and is struggling to get her nutritional needs met since increase in depression. Telehealth Telehealth Location of provider rendering services: other Location of patient: other Patient Identification confirmed using: Name, : Yes Telehealth method: video Patient verbally consented to treatment: Yes Patient verbally consented to billing insurance company: Yes Patient informed of any privacy concerns related to visit: Yes Minutes spent on Phone/Video with Pt.: 45 Coding Level of Care Code Tele Psytx 45 mins ([id number]) Diagnoses Major depressive disorder, recurrent, moderate F33.1 Obesity (BMI 30-39.9) E66.9 Time Spent (min) 45
== END 2023-04-23 14:28 | disposition home or self-care (01) ==
LOC: HO.HBST 12:05
PROVIDERS: PCP Nurse Practitioner Family; Visit Provider Counselor Mental Health
DX: F33.1 Major depressive disorder, recurrent, moderate (principal); E66.9 Obesity, unspecified; Z68.28 Body mass index [BMI] 28.0-28.9, adult
CPT/HCPCS: 90834

== ENCOUNTER → 2023-04-19 12:05 | Outpatient (BNVA) | payer OTHER, SELFPAY | PROVIDERS: PCP Nurse Practitioner Family; Visit Provider Counselor Mental Health ==

== ENCOUNTER 2023-04-26 11:16 | Outpatient (AMB) | payer OTHER, SELFPAY ==
--- NOTE | 2023-04-26 12:38 | MHC.WMTHER ---
Intake Intake Visit Reasons: VIDEO PO LSG 02/07/23 Allergies No Known Allergies [No Known Allergies*] Allergy (Verified 04/02/23 09:04) PFSH Medical History Fatty liver Leg pain, left Lumbar disc herniation IUD (intrauterine device) in place Migraines Anxiety Class 1 obesity due to excess calories with body mass index (BMI) of 30.0 to 30.9 in adult BMI 33.0-33.9,adult Chest wall contusion Abnormal biliary HIDA scan JUAN (obstructive sleep apnea) PVC (premature ventricular contraction) Atrial myxoma Family history of polyps in the colon Right sided abdominal pain Thrombocytopenia Surgical History Hx of laparoscopic partial gastrectomy Hx of tubal ligation 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 History of esophagogastroduodenoscopy (EGD) H/O excision of mass (~03/16/16) History of ear surgery (~2015) Hx of colonoscopy (~05/2018) History of open heart surgery (~03/16/16) Hx of section (~1986) Family History Mother CVD (cardiovascular disease) Obesity Father Colon polyp Daughter Thyroid disease Maternal Grandfather Stomach cancer Diabetes Social History Household Members: Family Household Members Other:: adult son Housing: House Are you a primary medicare interviewer to a significant other at home: No Do you presently have visiting nurse or other home services: No Alcohol intake: former Patient Tobacco Use Status: Never used Tobacco e-Cigarette/Vaping Use: Never Used Second Hand Smoke Exposure: No service: No Current occupational status: employed Cognitive needs: No Hearing needs: No Vision needs: No Behavioral Health Assessment Weight Management Therapy Therapy Notes Details Pt is a few months post surgery. She reported today an improvement in her mood symptoms from last appointment. She is moving, making plans for her future and feeling hopeful. She talked about the recent loss of a good friend and how that has shifted her perspective. Pt is looking to have weight loss surgery to help improve her health and quality of life. She reported having pain from back issues that get worse with her weight. Pt is currently in therapy with Judith Mcdonough with [facility] ([phone]) and has a nurse prescriber who gives her medication for depression Leah Romo. No history of inpatient psychiatric admissions, no history of problems with drugs or alcohol, no history of self harming behavior or suicide attempts. She reported that she has been struggling with depression for about one year now, she had from her , sold her home, had to leave her job. Presenting Concerns Referral Source provider Reason for referral weight loss surgery evaluation Precipitating Event obesity Living Situation Current Living Situation Rent At risk of losing current housing? No Satisfied with current living situation? Yes Comments Pt lives on her own however her older son is staying with her. Food/Weight/Diet Expectations of change weight loss and maintenance History/Relationship with food Pt stated that she would skip meals during the day and would not eat until 2pm.Could have been trupti donuts sandwich, or fast food for dinner, then eating late at night. Also was drinking 4-5 large coffees a day with extra extra creamer and sugar. 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 History/Relationship with weight Pt reported at her heaviest she was around 260lbs. She lost some weight due to depression. She reported struggling with her weight all her life. After having kids she really started struggling. History/Relationship with dieting [facility] in 2017 and went from 260 to 199 also due to having open heart surgery had to maintain healthier weight. Then pandemic and she gained some weight. Binge Eating Do you frequently eat large amounts of food in short periods of time, not feeling physically hungry? Yes Do you feel out of control when you eat a large amount of food in a short period of time? No Do you eat large amounts of food rapidly and typically alone? Yes Night Eating Do you wake up at least once during the night to eat? No If you wake up in the night, do you find that it is necessary to eat something in order to fall back asleep? Yes Do you have little or no appetite in the morning and feel very hungry in the evening, often overeating between dinner and when you go to bed? Yes Social History Family history and relationship Pt reported she is and has four children. She also has grandchildren. Pt was born and raised in [place], [place] she is one of 6 children raised by her mother and stepfather later on. Childhood was reported as normal, not a lot of love and affection though . Her mother and step father still living. Parental/Familial coffee farmer obligations none Developmental history and status no issues known Social support kids, some friends Lutheran/Spirituality raised Shinto but not practicing Cultural/Ethnic information Legal Involvement and History Current or historical involvement with the legal system? none known Education Highest grade completed associates degree Preferred learning style Auditory, Verbal, Written, Learn by doing and Visual Currently enrolled in educational program? No Interested in further educational program? 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 Employment Employment Status [employer] Wants help to find employment? No Meaningful activities working out, plays billiards on a team, traveling Service Service? No Mental Health and Addiction Treatment Current/Past substance abuse? No Current/Past addictive behavior concerns? No Medical and Physical Health Summary Physical exam in the last year? No Pain Screening Current pain? No Pain in the last few months? No Assessment & Plan Assessment & Plan (1) Major depressive disorder, recurrent, moderate: Code(s): F33.1 - Major depressive disorder, recurrent, moderate (2) Obesity (BMI 30-39.9): Code(s): E66.9 - Obesity, unspecified Plan Patient has a recent and remote history of depression per her report. She has been struggling to manage mood symptoms often exacerbated by personal and work relationships. Kenyetta recently had bariatric surgery and is struggling to get her nutritional needs met since increase in depression. Telehealth Telehealth Location of provider rendering services: other Location of patient: other Patient Identification confirmed using: Name, : Yes Telehealth method: video Patient verbally consented to treatment: Yes Patient verbally consented to billing insurance company: Yes Patient informed of any privacy concerns related to visit: Yes Minutes spent on Phone/Video with Pt.: 30 Coding Level of Care Code Tele Psytx 30 mins ([id number]) Diagnoses Major depressive disorder, recurrent, moderate F33.1 Obesity (BMI 30-39.9) E66.9 Time Spent (min) 30
== END 2023-04-26 12:38 | disposition home or self-care (01) ==
LOC: HO.HBST 11:16
PROVIDERS: PCP Nurse Practitioner Family; Visit Provider Counselor Mental Health
DX: F33.1 Major depressive disorder, recurrent, moderate (principal); E66.3 Overweight; Z68.28 Body mass index [BMI] 28.0-28.9, adult
CPT/HCPCS: 90832

== ENCOUNTER → 2023-04-26 11:16 | Outpatient (BNVA) | payer OTHER, SELFPAY | PROVIDERS: PCP Nurse Practitioner Family; Visit Provider Counselor Mental Health ==

== ENCOUNTER 2023-05-08 10:11 | Outpatient (AMB) | payer OTHER, SELFPAY ==
--- NOTE | 2023-05-08 15:44 | MHC.WMTHER ---
Intake Intake Visit Reasons: VIDEO PO LSG 02/07/23 Allergies No Known Allergies [No Known Allergies*] Allergy (Verified 04/02/23 09:04) PFSH Medical History Fatty liver Leg pain, left Lumbar disc herniation IUD (intrauterine device) in place Migraines Anxiety Class 1 obesity due to excess calories with body mass index (BMI) of 30.0 to 30.9 in adult BMI 33.0-33.9,adult Chest wall contusion Abnormal biliary HIDA scan JUAN (obstructive sleep apnea) PVC (premature ventricular contraction) Atrial myxoma Family history of polyps in the colon Right sided abdominal pain Thrombocytopenia Surgical History Hx of laparoscopic partial gastrectomy Hx of tubal ligation 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 History of esophagogastroduodenoscopy (EGD) H/O excision of mass (~03/16/16) History of ear surgery (~2015) Hx of colonoscopy (~05/2018) History of open heart surgery (~03/16/16) Hx of section (~1986) Family History Mother CVD (cardiovascular disease) Obesity Father Colon polyp Daughter Thyroid disease Maternal Grandfather Stomach cancer Diabetes Social History Household Members: Family Household Members Other:: adult son Housing: House Are you a primary manager managed care to a significant other at home: No Do you presently have visiting nurse or other home services: No Alcohol intake: former Patient Tobacco Use Status: Never used Tobacco e-Cigarette/Vaping Use: Never Used Second Hand Smoke Exposure: No service: No Current occupational status: employed Cognitive needs: No Hearing needs: No Vision needs: No Behavioral Health Assessment Weight Management Therapy Therapy Notes Details Pt is a few months post surgery. She reported today an improvement in her mood symptoms from last appointment. She is moving, making plans for her future and feeling hopeful. She talked about the recent loss of a good friend and how that has shifted her perspective. Patient continues to plan for her move and feels excited, has also been on recent dates and had hard conversations with her . Pt is looking to have weight loss surgery to help improve her health and quality of life. She reported having pain from back issues that get worse with her weight. Pt is currently in therapy with Judith Mcdonough with [facility] ([phone]) and has a nurse prescriber who gives her medication for depression Leah Romo. No history of inpatient psychiatric admissions, no history of problems with drugs or alcohol, no history of self harming behavior or suicide attempts. She reported that she has been struggling with depression for about one year now, she had from her , sold her home, had to leave her job. Presenting Concerns Referral Source provider Reason for referral weight loss surgery evaluation Precipitating Event obesity Living Situation Current Living Situation Rent At risk of losing current housing? No Satisfied with current living situation? Yes Comments Pt lives on her own however her older son is staying with her. Food/Weight/Diet Expectations of change weight loss and maintenance History/Relationship with food Pt stated that she would skip meals during the day and would not eat until 2pm.Could have been tr[employer]i donuts sandwich, or fast food for dinner, then eating late at night. Also was drinking 4-5 large coffees a day with extra extra creamer and sugar. 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 History/Relationship with weight Pt reported at her heaviest she was around 260lbs. She lost some weight due to depression. She reported struggling with her weight all her life. After having kids she really started struggling. History/Relationship with dieting [facility] in 2017 and went from 260 to 199 also due to having open heart surgery had to maintain healthier weight. Then pandemic and she gained some weight. Binge Eating Do you frequently eat large amounts of food in short periods of time, not feeling physically hungry? Yes Do you feel out of control when you eat a large amount of food in a short period of time? No Do you eat large amounts of food rapidly and typically alone? Yes Night Eating Do you wake up at least once during the night to eat? No If you wake up in the night, do you find that it is necessary to eat something in order to fall back asleep? Yes Do you have little or no appetite in the morning and feel very hungry in the evening, often overeating between dinner and when you go to bed? Yes Social History Family history and relationship Pt reported she is and has four children. She also has grandchildren. Pt was born and raised in [place], [place] she is one of 6 children raised by her mother and stepfather later on. Childhood was reported as normal, not a lot of love and affection though . Her mother and step father still living. 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 none known Education Highest grade completed associates degree Preferred learning style Auditory, Verbal, Written, Learn by doing and Visual Currently enrolled in educational program? No Interested in further educational program? 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 No Meaningful activities working out, plays billiards on a team, traveling Service Service? No Mental Health and Addiction Treatment Current/Past substance abuse? No Current/Past addictive behavior concerns? No Medical and Physical Health Summary Physical exam in the last year? No Pain Screening Current pain? No Pain in the last few months? No Assessment & Plan Assessment & Plan (1) Major depressive disorder, recurrent, moderate: Code(s): F33.1 - Major depressive disorder, recurrent, moderate (2) Obesity (BMI 30-39.9): Code(s): E66.9 - Obesity, unspecified Plan Patient has a recent and remote history of depression per her report. She has been struggling to manage mood symptoms often exacerbated by personal and work relationships. She has struggled with the seperation from her and also discovered that he has another rel. Sig. improvement this week per her report and presentation. Telehealth Telehealth Location of provider rendering services: other Location of patient: other Patient Identification confirmed using: Name, : Yes Telehealth method: video Patient verbally consented to treatment: Yes Patient verbally consented to billing insurance company: Yes Patient informed of any privacy concerns related to visit: Yes Minutes spent on Phone/Video with Pt.: 30 Coding Level of Care Code Tele Psytx 30 mins (80236) Diagnoses Major depressive disorder, recurrent, moderate F33.1 Obesity (BMI 30-39.9) E66.9 Time Spent (min) 30
== END 2023-05-08 15:42 | disposition home or self-care (01) ==
LOC: HO.HBST 10:11
PROVIDERS: PCP Nurse Practitioner Family; Visit Provider Counselor Mental Health
DX: F33.1 Major depressive disorder, recurrent, moderate (principal); E66.3 Overweight; Z68.28 Body mass index [BMI] 28.0-28.9, adult
CPT/HCPCS: 90832

== ENCOUNTER → 2023-05-08 10:11 | Outpatient (BNVA) | payer OTHER, SELFPAY | PROVIDERS: PCP Nurse Practitioner Family; Visit Provider Counselor Mental Health | DX: E66.9 Obesity, unspecified (principal); Z98.84 Bariatric surgery status; Z71.3 Dietary counseling and surveillance | CPT/HCPCS: 97803 ==

== ENCOUNTER 2023-05-16 09:11 | Outpatient (AMB) | payer OTHER, SELFPAY ==
--- NOTE | 2023-05-16 09:13 | A.OFFVIS_ITS ---
Intake VS Expanded 05/16/23 09:22 BP 119/73 Blood Pressure Location Rt brachial Blood Pressure Position Sitting Pulse 57 Pulse Source Pulse Oximeter Temp 96.2 F L Temperature Source Tympanic Pulse Oximetry 97 Oxygen Delivery Method Room Air Height 5 ft 9 in Weight 180 lb 9.6 oz BMI 26.7 Body Fat % 33.1 Body Fat Mass 59.8 Fat Free Mass 120.8 Visceral Fat Rating 7.0 Body Water % 47.5 Body Water Mass 85.8 Muscle Mass/Score 114.6 Basal Metabolic Rate/Score 1,624 Intake Visit Reasons: (OV) PO LSG 02/07/23 Allergies No Known Allergies [No Known Allergies*] Allergy (Verified 05/16/23 09:22) HPI HPI Comments History of Present Illness Details This?a?52?yo female who is s/p LSG without hiatal hernia repair on?02/07/23. The pt is 3+ months post op. Weight today is 180.6 pounds, with a BMI of 26.7. There has been a 59 pound weight loss,(initial weight 245.4 pounds) since starting the program on 10/31/22 reflecting a 20.2% total body weight loss and a weight loss of 26.8 pounds since surgery (operative weight 213.4 pounds). The patient denies any GERD, odynophagia, dysphagia, regurgitation. She continues to report gurgling when eating solid food. She is happy seeing Kaykay in for support re: depression and notes that she is in a much better place emotionally and psychologically due to Kaykay's help; she notes that she is feeling better following her current meal plan and has resumed as follows: Zone perfect bars. Present meal plan includes: 2 celebrate 4 in 1 2 scoops in 8 oz 1 % milk, 10-12, 5-7 ZP bar 1-2 drinkin oz water ? Exercise routine includes: Pt has reports exercising 5 days/week at 200 kcal/session. She is moving her residence & is closer to a gym & is planning to increase activity. She notes she has a new exercise partner and she/they are supporting each other. gym, weights then cardio, 200 calories, dog walking The patient has a follow-up with her mental health care provider regarding her depression in the next week or so but asked if Kaykay had any availability and asked me to help facilitate evaluation. 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 History of esophagogastroduodenoscopy (EGD) H/O excision of mass (~03/16/16) History of ear surgery (~2015) Hx of colonoscopy (~05/2018) History of open heart surgery (~03/16/16) Hx of section (~1986) Family History Mother CVD (cardiovascular disease) Obesity Father Colon polyp Daughter Thyroid disease Maternal Grandfather Stomach cancer Diabetes Social History Household Members: Family Household Members Other:: adult son Housing: House Are you a primary youth care specialist to a significant other at home: No Do you presently have visiting nurse or other home services: No Alcohol intake: former Patient Tobacco Use Status: Never used Tobacco e-Cigarette/Vaping Use: Never Used Second Hand Smoke Exposure: No service: No Current occupational status: employed Cognitive needs: No Hearing needs: No Vision needs: No Review of Systems Const All systems reviewed & are unremarkable except as noted in HPI and below Reports as per HPI Physical Exam On exam, she is anicteric and nontoxic She is in no acute respiratory distress She seems to be in surprisingly good spirits Assessment & Plan Assessment & Plan (1) History of sleeve gastrectomy: Code(s): Z90.3 - Acquired absence of stomach [part of] (2) Overweight (BMI 25.0-29.9): Code(s): E66.3 - Overweight (3) Chronic idiopathic constipation: Code(s): K59.04 - Chronic idiopathic constipation (4) JUAN (obstructive sleep apnea): Comment: intermittent CPAP use Code(s): G47.33 - Obstructive sleep apnea (adult) (pediatric) Plan The patient is very pleased with the results of her sleeve gastrectomy and 59 lb weight loss. The importance of increasing her exercise given the fact that her weight loss is somewhat plateaued was discussed. The patient will continue with the current meal plan and notes that she is backing off for protein bars is advised by Heike Reynoso. The patient notes that she was eating these to avoid fast food or other poor dietary choices. Patient will also follow up with Kaykay in behavioral health as she feels that Kaykay is more supportive than her prior counselor. The patient notes that she is no longer using her CPAP due to her weight loss and is well rested with more energy and no fatigue. I will see the patient back in 3 months in order 6 month postop labs. She will contact me before then if there are problems. Coding Level of Care Code Est Pt Level 4 (29529) Diagnoses History of sleeve gastrectomy Z90.3 Overweight (BMI 25.0-29.9) E66.3 Chronic idiopathic constipation K59.04 JUAN (obstructive sleep apnea) G47.33
[2023-05-16 09:22] VITALS: BP 119/73; PULSE 57; TEMP 35.7; O2SAT 97; BMI 26.7
== END 2023-05-16 10:08 | disposition home or self-care (01) ==
PROVIDERS: PCP Nurse Practitioner Family; Visit Provider Surgery
DX: E66.3 Overweight (principal); Z68.26 Body mass index [BMI] 26.0-26.9, adult; Z90.3 Acquired absence of stomach [part of]; Z98.84 Bariatric surgery status; K59.04 Chronic idiopathic constipation; G47.33 Obstructive sleep apnea (adult) (pediatric)
CPT/HCPCS: 99213

== ENCOUNTER → 2023-05-16 09:11 | Outpatient (BNVA) | payer OTHER, SELFPAY | PROVIDERS: PCP Nurse Practitioner Family; Visit Provider Surgery ==

== ENCOUNTER 2023-05-22 12:46 | Outpatient (AMB) | payer OTHER, SELFPAY ==
--- NOTE | 2023-05-22 14:38 | MHC.WMTHER ---
Intake Intake Visit Reasons: VIDEO PO LSG 02/07/23 Allergies No Known Allergies [No Known Allergies*] Allergy (Verified 05/16/23 09:22) [facility] Medical History Fatty liver Leg pain, left Lumbar disc herniation IUD (intrauterine device) in place Migraines Anxiety Class 1 obesity due to excess calories with body mass index (BMI) of 30.0 to 30.9 in adult BMI 33.0-33.9,adult Chest wall contusion Abnormal biliary HIDA scan JUAN (obstructive sleep apnea) PVC (premature ventricular contraction) Atrial myxoma Family history of polyps in the colon Right sided abdominal pain Thrombocytopenia Surgical History Hx of laparoscopic partial gastrectomy Hx of tubal ligation 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) Household Members: Family Household Members Other:: adult son Housing: House Are you a primary career resource technician to a significant other at home: No Do you presently have visiting nurse or other home services: No Alcohol intake: former Patient Tobacco Use Status: Never used Tobacco e-Cigarette/Vaping Use: Never Used Second Hand Smoke Exposure: No service: No Current occupational status: employed Cognitive needs: No Hearing needs: No Vision needs: No Behavioral Health Assessment Weight Management Therapy Therapy Notes Details Pt is a few months post surgery. She talked about recent trauma in her family, murder of her 21 year old nephew. She went with her family to [place] to identify his body after he was missing for almost 2 weeks. She is still planning on moving but waiting until after Thanksgiving so that she can be with her family. Continuing to go forward with her plans as well this weekend going to visit her grandson. Pt is looking to have weight loss surgery to help improve her health and quality of life. She reported having pain from back issues that get worse with her weight. Pt is currently in therapy with Judith Mcdonough with [facility] ([phone]) and has a nurse prescriber who gives her medication for depression Leah Romo. No history of inpatient psychiatric admissions, no history of problems with drugs or alcohol, no history of self harming behavior or suicide attempts. She reported that she has been struggling with depression for about one year now, she had from her , sold her home, had to leave her job. Presenting Concerns Referral Source provider Reason for referral weight loss surgery evaluation Precipitating Event obesity Living Situation Current Living Situation Rent At risk of losing current housing? No Satisfied with current living situation? Yes Comments Pt lives on her own however her older son is staying with her. Food/Weight/Diet Expectations of change weight loss and maintenance History/Relationship with food Pt stated that she would skip meals during the day and would not eat until 2pm.Could have been trupti donuts sandwich, or fast food for dinner, then eating late at night. Also was drinking 4-5 large coffees a day with extra extra creamer and sugar. 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 History/Relationship with weight Pt reported at her heaviest she was around 260lbs. She lost some weight due to depression. She reported struggling with her weight all her life. After having kids she really started struggling. History/Relationship with dieting [facility] in 2017 and went from 260 to 199 also due to having open heart surgery had to maintain healthier weight. Then pandemic and she gained some weight. Binge Eating Do you frequently eat large amounts of food in short periods of time, not feeling physically hungry? Yes Do you feel out of control when you eat a large amount of food in a short period of time? No Do you eat large amounts of food rapidly and typically alone? Yes Night Eating Do you wake up at least once during the night to eat? No If you wake up in the night, do you find that it is necessary to eat something in order to fall back asleep? Yes Do you have little or no appetite in the morning and feel very hungry in the evening, often overeating between dinner and when you go to bed? Yes Social History Family history and relationship Pt reported she is and has four children. She also has grandchildren. Pt was born and raised in [place], [place] she is one of 6 children raised by her mother and stepfather later on. Childhood was reported as normal, not a lot of love and affection though . Her mother and step father still living. 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 none known Education Highest grade completed associates degree Preferred learning style Auditory, Verbal, Written, Learn by doing and Visual Currently enrolled in educational program? No Interested in further educational program? 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 Employment Employment Status [employer] Wants help to find employment? No Meaningful activities working out, plays billiards on a team, traveling Service Service? No Mental Health and Addiction Treatment Current/Past substance abuse? No Current/Past addictive behavior concerns? No Medical and Physical Health Summary Physical exam in the last year? No Pain Screening Current pain? No Pain in the last few months? No Assessment & Plan Assessment & Plan (1) Major depressive disorder, recurrent, moderate: Code(s): F33.1 - Major depressive disorder, recurrent, moderate (2) Obesity (BMI 30-39.9): Code(s): E66.9 - Obesity, unspecified Plan Patient has a recent and remote history of depression per her report. She has been struggling to manage mood symptoms often exacerbated by personal and work relationships. She has struggled with the seperation from her and also discovered that he has another rel. Sig. improvement this week per her report and presentation. Telehealth Telehealth Location of provider rendering services: other Location of patient: address on file Patient Identification confirmed using: Name, : Yes Telehealth method: video Patient verbally consented to treatment: Yes Patient verbally consented to billing insurance company: Yes Patient informed of any privacy concerns related to visit: Yes Minutes spent on Phone/Video with Pt.: 40 Coding Level of Care Code Tele Psytx 45 mins ([id number]) Diagnoses Major depressive disorder, recurrent, moderate F33.1 Obesity (BMI 30-39.9) E66.9 Time Spent (min) 40
== END 2023-05-22 14:37 | disposition home or self-care (01) ==
LOC: HO.HBST 12:46
PROVIDERS: PCP Nurse Practitioner Family; Visit Provider Counselor Mental Health
DX: F33.1 Major depressive disorder, recurrent, moderate (principal); E66.3 Overweight; Z68.26 Body mass index [BMI] 26.0-26.9, adult
CPT/HCPCS: 90834

== ENCOUNTER → 2023-05-22 12:46 | Outpatient (BNVA) | payer OTHER, SELFPAY | PROVIDERS: PCP Nurse Practitioner Family; Visit Provider Counselor Mental Health ==

== ENCOUNTER 2023-05-28 09:00 | Outpatient (AMB) | payer OTHER, SELFPAY ==
--- NOTE | 2023-05-28 09:01 | MHC.PC.OV ---
Vital Signs 05/28/23 09:05 Height 5 ft 9 in Weight 158 lb BMI 23.3 BP 112/66 Blood Pressure Location Rt brachial Position Sitting Pulse 68 Pulse Source Pulse Oximeter Pulse Oximetry (%) 98 Oxygen Delivery Method Room Air Intake Visit Reasons: Annual PE Allergies No Known Allergies [No Known Allergies*] Allergy (Verified 05/28/23 09:06) Medication List - Last Reconciled 05/28/23 by MARIOLA Wallace- cholecalciferol (vitamin D3) 250 mcg PO DAILY CPAP As directed sennosides (senna) 17.2 mg (2 x 8.6 mg) PO BEDTIME PRN sertraline 100 mg PO DAILY vitamin B complex (B Complex-Vitamin B12 tablet) 1 tab PO DAILY Tobacco use date assessed: 12/26/22 Dental Screening Dental Screen Date: 05/28/23 Did you have a dental visit in the last 12 months?: Yes Did you have a dental problem in the last 6 months where you did not have access to dental care?: No Was dental information given to patient?: Patient has dentist HPI Annual PE HPI Details Pt is here for a PE. Will order labs. Colon screen is up to date. Mammo is up to date. Hx of vitamin D deficiency, will order labs. Pt has a corn to her right foot, will refer to podiatry. She also has a skin lesion to her left forearm, will refer to derm. 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 History of esophagogastroduodenoscopy (EGD) H/O excision of mass (~03/16/16) History of ear surgery (~2015) Hx of colonoscopy (~05/2018) History of open heart surgery (~03/16/16) Hx of section (~1986) Family History Mother CVD (cardiovascular disease) Obesity Father Colon polyp Daughter Thyroid disease Maternal Grandfather Stomach cancer Diabetes Social History Household Members: Family Household Members Other:: adult son Housing: House Are you a primary career placement services counselor to a significant other at home: No Do you presently have visiting nurse or other home services: No Alcohol intake: former Patient Tobacco Use Status: Never used Tobacco e-Cigarette/Vaping Use: Never Used Second Hand Smoke Exposure: No service: No Current occupational status: employed Cognitive needs: No Hearing needs: No Vision needs: No Questionnaire Thrive Questionnaire Date Thrive assessed: 02/08/23 AUDIT C Alcohol Use Questionnaire (AUDIT-C) 1. How often do you have a drink containing alcohol?: Monthly or less 2. How many drinks containing alcohol do you have on a typical day when you are drinking?: 1 or 2 3. How often do you have six or more drinks on one occasion?: Never Total Score: 1 Score Reviewed/Action Taken: No DEAN-7 AMB Questionnaire DEAN-7 Date DEAN - 7 assessed: 01/10/22 Source: Developed by Drs. Prudencio June, Karina Fuentes, Michael Fernandes and colleagues, with an educational jonathan from [employer]. Review of Systems Const Denies chills and Denies fever(s) Eyes Denies blurry vision ENT Denies vertigo, Denies dizziness and Denies sore throat Card Denies chest pain at rest, Denies chest pain with activity, Denies diaphoresis, Denies dyspnea and Denies dyspnea on exertion Resp Denies cough, Denies dyspnea, Denies dyspnea on exertion and Denies wheezing GI Denies abdominal pain, Denies melena, Denies hematochezia, Denies constipation, Denies diarrhea and Denies loose stools Denies hematuria Musc Denies numbness and Denies tingling Skin/Breast Denies lesions Neuro Denies vertigo, Denies dizziness, Denies numbness and Denies tingling Psych Denies anxiety, Denies depression, Denies homicidal ideation, Denies suicidal ideation and Denies other (substance abuse) Aller/Immun Denies wheezing Physical exam (Primary Care) Vital Signs: Last Vital Signs Pulse 68 05/28/23 09:05 BP 112/66 05/28/23 09:05 Pulse Ox 98 05/28/23 09:05 Oxygen Delivery Method Room Air 05/28/23 09:05 BMI result Body Mass Index 23.3 Tobacco/Smoking Status: Tobacco use Status Tobacco use date assessed 12/26/22 05/28/23 09:03 Patient Tobacco Use Status Never used Tobacco 05/28/23 09:03 e-Cigarette/Vaping Use Never Used 05/28/23 09:03 Thrive Assessment: Date of Thrive Assessment Date Thrive assessed 02/08/23 05/28/23 09:03 Const General: cooperative Nutritional Appearance: well nourished Orientation/consciousness: patient oriented x3 HENMT Head: Yes normal to inspection, Yes normocephalic and Yes atraumatic Ears: TM's normal bilaterally Eyes General: appearance normal, both eyes and all related structures Alignment and Position: alignment normal and position normal Neck Neck: Yes normal visual inspection and Yes no lymphadenopathy Thyroid: Thyroid normal Resp Effort & Inspection: normal respiratory effort Auscultation: clear to auscultation bilaterally Cardio Rate: regular rate Rhythm: regular rhythm Heart sounds: S1 normal heart sound present, S2 normal heart sound present and no murmurs GI Palpation (GI): Soft to palpation and nontender Auscultation: normal bowel sounds Skin Other: left forearm (dorsal aspect) with dark small circular lesion (scabbed) Rashes: no rashes Neuro General: patient oriented x3, moves all extremities, no focal motor deficits and deep tendon reflexes 2+ bilaterally Romberg Test: Negative Extrem Other: right foot 4th toe lateral aspect with corn Psych Appearance: grossly normal Mental Status: mental status grossly normal Speech and movement: Normal speech and movement present Affect: normal affect Attitude: cooperative Thought process: Normal thought process present Thought content: Normal thought content present Insight: Good insight present (Psych) Judgement: Good judgement present (Psych) Assessment and Plan Assessment & Plan (1) Physical exam: Code(s): Z00.00 - Encounter for general adult medical examination without abnormal findings Plan: Labs ordered (2) Vitamin D deficiency: Code(s): E55.9 - Vitamin D deficiency, unspecified Plan: Labs ordered (3) Skin lesion: Code(s): L98.9 - Disorder of the skin and subcutaneous tissue, unspecified Plan: referring to derm. (4) [place] of foot: Code(s): L84 - Corns and callosities Plan: Referred to podiatry Plan The patient agreed to the use of a medical care evaluation specialist for this encounter. Scribed for BERNARDINO Solis by Roseline Martinez medical care evaluation specialist, on 05/28/2023 at 09:30 EST. Orders: Orders TSH reflex Free T4 Today Z00.00 - Encounter for general adult medical examination without abnormal findings Vitamin D 25-OH Total Today E55.9 - Vitamin D deficiency, unspecified Complete Blood Count Auto Diff Today Z00.00 - Encounter for general adult medical examination without abnormal findings Comprehensive Adams. Panel Fast Today Z00.00 - Encounter for general adult medical examination without abnormal findings UA CC w/rflx Micro + Cult Today Z00.00 - Encounter for general adult medical examination without abnormal findings Lipid Panel Today Z00.00 - Encounter for general adult medical examination without abnormal findings Referrals Podiatry Referral L84 - Corns and callosities Dermatology Referral L98.9 - Disorder of the skin and subcutaneous tissue, unspecified Coding Level of Care Code Est Pt Prev Care 40-64y(98217) Diagnoses Physical exam Z00.00 Vitamin D deficiency E55.9 Skin lesion L98.9 [place] of foot L84
[2023-05-28 09:05] VITALS: BP 112/66; PULSE 68; O2SAT 98; BMI 23.3
== END 2023-05-28 12:39 | disposition home or self-care (01) ==
PROVIDERS: PCP Nurse Practitioner Family; Visit Provider Nurse Practitioner Family
DX: Z00.00 Encounter for general adult medical examination without abnormal findings (principal); E55.9 Vitamin D deficiency, unspecified; L98.9 Disorder of the skin and subcutaneous tissue, unspecified; L84 Corns and callosities
CPT/HCPCS: 99396

== ENCOUNTER 2023-05-31 11:18 | Outpatient (AMB) | payer OTHER, SELFPAY ==
--- NOTE | 2023-05-31 11:06 | A.OFFVIS_ITS ---
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 Isn't skipping anymore, getting enough protein. Breakfast: 1 egg and sometimes a lean meat lunch: protein shake 30g dinner: meat and veg protein bar Exercise: going to the gym daily , 30 minutes weight training - stress outlet, really enjoys the gym Purchased bariatric vitamins - took them in the morning once and made her nauseas so hasn't been taking . Dietary counseling reduction Diagnosis Nutrition problem #1 overweight/obesity As related to (etiology) #1 excess energy intake and physical inactivity As evidenced by (sign/symptom) #1 high BMI Monitoring/Goals Nutrition problem monitoring total energy intake, level of knowledge/skill, total PRO intake, total CHO intake and weight Outcome progress progressing Learning/Education Readiness to learn good Stages of change action Educational materials provided Yes Most Recent Diabetes Results: No Data to Display [facility] Medical History Fatty liver Leg pain, left Lumbar disc herniation IUD (intrauterine device) in place Migraines Anxiety Class 1 obesity due to excess calories with body mass index (BMI) of 30.0 to 30.9 in adult BMI 33.0-33.9,adult Chest wall contusion Abnormal biliary HIDA scan JUAN (obstructive sleep apnea) PVC (premature ventricular contraction) Atrial myxoma Family history of polyps in the colon Right sided abdominal pain Thrombocytopenia Surgical History Hx of laparoscopic partial gastrectomy Hx of tubal ligation 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 History of esophagogastroduodenoscopy (EGD) H/O excision of mass (~03/16/16) History of ear surgery (~2015) Hx of colonoscopy (~05/2018) History of open heart surgery (~03/16/16) Hx of section (~1986) Family History Mother CVD (cardiovascular disease) Obesity Father Colon polyp Daughter Thyroid disease Maternal Grandfather Stomach cancer Diabetes Social History Household Members: Family Household Members Other:: adult son Housing: House Are you a primary acute care certified nursing assistant to a significant other at home: No Do you presently have visiting nurse or other home services: No Alcohol intake: former Patient Tobacco Use Status: Never used Tobacco e-Cigarette/Vaping Use: Never Used Second Hand Smoke Exposure: No service: No Current occupational status: employed Cognitive needs: No Hearing needs: No Vision needs: No Assessment & Plan Assessment & Plan (1) Overweight (BMI 25.0-29.9): Code(s): E66.3 - Overweight Patient Instructions: High protein, structured meal times, prioritizing vegetables over carb. maintain adequate hydration. Encouraged consistent exercise routine. resume bariatic vitamins but take with food after meal . communicate as needed with office. f/u wtih mt 12 6 at 11am Telehealth Telehealth Location of provider rendering services: practice address Location of patient: other Patient Identification confirmed using: Name, : Yes Telehealth method: video Patient verbally consented to treatment: Yes Patient verbally consented to billing insurance company: Yes Patient informed of any privacy concerns related to visit: Yes Minutes spent on Phone/Video with Pt.: 30 Coding Level of Care Code Nutr Indiv Subseq (95650) Diagnoses Overweight (BMI 25.0-29.9) E66.3 Time Spent (min) 30
[2023-05-31 11:14] VITALS: BMI 26.6
== END 2023-05-31 11:32 | disposition home or self-care (01) ==
LOC: HO.HBS 11:19
PROVIDERS: PCP Nurse Practitioner Family; Visit Provider Dietitian, Registered
DX: E66.3 Overweight (principal)

== ENCOUNTER → 2023-05-31 11:18 | Outpatient (BNVA) | payer OTHER, SELFPAY | PROVIDERS: PCP Nurse Practitioner Family; Visit Provider Dietitian, Registered | DX: E66.3 Overweight (principal); Z68.26 Body mass index [BMI] 26.0-26.9, adult; Z71.3 Dietary counseling and surveillance; Z90.3 Acquired absence of stomach [part of] | CPT/HCPCS: 97803 ==

== ENCOUNTER 2023-07-17 07:36 | Outpatient (REF) | payer OTHER, SELFPAY ==
[2023-07-17 07:58] LABS: MANUAL DIFF FLAG NO
[2023-07-17 08:07] LABS: Basophils Percent Auto 0.7 % (0-2); Eosinophils Absolute Auto 0.4 X10*3/uL (0.0-0.4); Eosinophils Percent Auto 6.3 % (0-4); Hematocrit 41.8 % (37.0-47.0); Imm Gran Abs Auto 0.01 X10*3/uL (0.00-0.03); Imm Gran Pct Auto 0.2 % (0.0-0.4); Lymphocytes Absolute Auto 1.9 X10*3/uL (1.2-4.9); Lymphocytes Percent Auto 34.1 % (20-40); Mean Corpuscular HGB Conc 33.5 g/dl (31.0-35.0); Mean Corpuscular Hemoglobin 29.5 pg (27.0-33.0); Mean Corpuscular Volume 88.2 fL (80.0-98.0); Mean Platelet Volume 12.6 fL (9.4-12.3); Monocytes Absolute Auto 0.5 X10*3/uL (0.1-1.2); Neutrophils Absolute Auto 2.8 x10*3/uL (2.0-8.3); Neutrophils Percent Auto 49.7 % (45-73); Platelet Count 187 X10*3/uL (160-400); Red Blood Count 4.74 X10*6/uL (4.20-5.50); White Blood Count 5.7 X10*3/uL (4.8-10.8)
[2023-07-17 08:10] LABS: Appearance Urine Clear; Color Urine Yellow; Glucose Urine UA Negative (Negative); Leukocyte Esterase Urine Moderate (2+) (Negative); Nitrite Urine Negative (Negative); PH 5.5 (5.0-9.0); Specific Gravity - Urine >= 1.030 (1.005-1.025); UMIC TRIGGER UACC YES; Urine Blood Negative (Negative); Urine Ketones Trace mg/dL (Negative); Urine Protein Negative (Neg-Trace)
[2023-07-17 08:21] LABS: Bacteria Urine Trace (None Seen); Hyaline Casts Urine 0-2 /LPF (0-2); RBC Urine 0-2 /HPF (0-2); UACC Culture Trigger YES; WBC Urine 21-50 /HPF (0-5)
[2023-07-17 08:44] LABS: Alanine Aminotransferase 17 U/L (0-31); Alkaline Phosphatase 68 U/L (39-117); Anion Gap 11 (12-20); Aspartate Amino Transferase 19 U/L (5-31); Bilirubin Total 0.5 mg/dL (0.0-1.0); Blood Urea Nitrogen 18 mg/dL (9-16); Calcium 9.6 mg/dL (8.4-10.2); Carbon Dioxide 26 mmol/L (22-29); Chloride 109 mmol/L (96-108); Cholesterol 175 mg/dL (<200); Estimated Glomerular Filt Rate > 60; Glucose Fasting 93 mg/dL (60-99); HDL Cholesterol 46 mg/dL (>40); LDL Cholesterol Calculated 117 mg/dL (<100); Potassium 3.9 mmol/L (3.3-5.1); Sodium 142 mmol/L (135-145); Total Protein 7.3 g/dL (6.5-8.0); Triglycerides 61 mg/dL (<150)
[2023-07-17 09:02] LABS: TSH reflex Free T4 2.38 uIU/mL (0.32-4.0); Vitamin D 25-OH Total 38.1 ng/mL (>30)
== END 2023-07-17 07:37 | disposition home or self-care (01) ==
LOC: HO.LAB 07:36
PROVIDERS: PCP Nurse Practitioner Family; Visit Provider Nurse Practitioner Family
DX: Z00.00 Encounter for general adult medical examination without abnormal findings (principal); E55.9 Vitamin D deficiency, unspecified; R82.90 Unspecified abnormal findings in urine
CPT/HCPCS: 36415; 80053; 80061; 81001; 82306; 84443; 85025; 87086

== ENCOUNTER 2023-08-14 10:04 | Outpatient (AMB) | payer OTHER, SELFPAY ==
--- NOTE | 2023-08-14 10:03 | MHC.OFFVISWM ---
Intake VS Expanded 08/14/23 10:04 Height 5 ft 9 in Weight 166 lb 6 oz BMI 24.6 Body Fat % 29.6 Body Fat Mass 49.3 Fat Free Mass 117.2 Visceral Fat Rating 7 Body Water % 48.3 Body Water Mass 80.4 Muscle Mass/Score 110.2 Basal Metabolic Rate/Score 1,519 Intake Visit Reasons: VIDEO PO LSG 02/07/23 Product Support Consultant Required: No Allergies No Known Allergies [No Known Allergies*] Allergy (Verified 05/28/23 09:06) Medication List - Last Reconciled 08/14/23 by ROBERT Toribio [celebrate MVI PO DAILY] CPAP As directed sennosides (senna) 17.2 mg (2 x 8.6 mg) PO BEDTIME PRN sertraline 100 mg PO DAILY HPI HPI Comments History of Present Illness Details This?a?52?yo female who is s/p LSG without hiatal hernia repair on?02/07/23. Presents for 6 month post op visit. Weight today is 166.6 pounds, with a BMI of 24.7. There has been a 78.8 pound weight loss,(initial weight 245.4 pounds) since starting the program on 10/31/22 reflecting a 32.1% total body weight loss and a weight loss of 46.8 pounds since surgery (operative weight 213.4 pounds) reflecting a 21.9% TBWL since surgery. No complaints of nausea, emesis, abdominal pain or reflux. She has reached a healthy weight but is concerned with the loose skin of her abdomen and her arms. She states the skin of her abdomen is contributing to her depression and she states she has even thought of putting on weight to fill it in . No complaint of rash or pain with activity. Specific to her arms, she does not have pain but it is negatively impacting her mental health. Present meal plan includes: 3 meals per day, not measuring food quantity ex 1 egg, 1 piece of castro protein and veg same as lunch drinkin-40 oz water ? Exercise routine includes: 3-4 x per week, 350-400 [employer] Any post op complications: none JUAN: resolved DM: never HTN: never Hyperlipidemia: never GERD:?0-5 scale ??0 = no symptoms ??1 = symptoms noticeable but not bothersome 2 =symptoms bothersome but not daily ? 3 = symptoms bothersome and daily 4 = symptoms affect daily activities 5 = symptoms are incapacitating, unable to do daily activities ? How bad is the heartburn: 0 ? Heartburn while lying down: 0 ? Heartburn when standing up: 0 ? Heartburn after meals: 0 ? Does heartburn change your diet: 0 ? Does heartburn wake you up from sleep: 0 ? Do you have difficulty swallowin ? Do you have pain with swallowin ? If you take medicine for your reflux, does this affect your daily life: 0 Satisfaction with present condition - satisfied or not satisfied: not satisifed due to loose skin PFSH Medical History Fatty liver Leg pain, left Lumbar disc herniation IUD (intrauterine device) in place Migraines Anxiety Class 1 obesity due to excess calories with body mass index (BMI) of 30.0 to 30.9 in adult BMI 33.0-33.9,adult Chest wall contusion Abnormal biliary HIDA scan JUAN (obstructive sleep apnea) PVC (premature ventricular contraction) Atrial myxoma Family history of polyps in the colon Right sided abdominal pain Thrombocytopenia Surgical History Hx of laparoscopic partial gastrectomy Hx of tubal ligation 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 History of esophagogastroduodenoscopy (EGD) H/O excision of mass (~03/16/16) History of ear surgery (~2015) Hx of colonoscopy (~05/2018) History of open heart surgery (~03/16/16) Hx of section (~1986) Family History Mother CVD (cardiovascular disease) Obesity Father Colon polyp Daughter Thyroid disease Maternal Grandfather Stomach cancer Diabetes Social History Household Members: Family Household Members Other:: adult son Housing: House Are you a primary career services manager to a significant other at home: No Do you presently have visiting nurse or other home services: No Alcohol intake: former Patient Tobacco Use Status: Never used Tobacco e-Cigarette/Vaping Use: Never Used Second Hand Smoke Exposure: No service: No Current occupational status: employed Cognitive needs: No Hearing needs: No Vision needs: No Assessment & Plan Assessment & Plan (1) History of sleeve gastrectomy: Code(s): Z90.3 - Acquired absence of stomach [part of] Plan: Overall, patient is doing well. She is eating 3 meals per day. She has not measuring the quantity but clearly has achieved a healthy weight. She was encouraged to increase exercise from 4 days a week to 5 or 6 days a week to maintain her healthy weight. Encouraged to drink more water as well. She recently had blood work done and while vitamin B12 and a were lacking in the data from June 2023, previous B12 levels were elevated and vitamin-A was normal. She continues to take a bariatric multivitamin and will continue to do so. We will have her return to the office in approximately 6 weeks with the understanding that she will text sooner should there be any questions or concerns. (2) Excess skin: Code(s): L98.7 - Excessive and redundant skin and subcutaneous tissue Plan: Per her health insurance, medical necessity for excess skin removal would not be covered until 18 months post bariatric surgery. Her loose skin is negatively impacting her mental health. She is going to look into possible private Plastic surgery consult. Telehealth Telehealth Location of provider rendering services: practice address Location of patient: other Patient Identification confirmed using: Name, : Yes Telehealth method: voice only Patient verbally consented to treatment: Yes Patient verbally consented to billing insurance company: Yes Patient informed of any privacy concerns related to visit: Yes Minutes spent on Phone/Video with Pt.: 25 Coding Level of Care Code Tele Est Pt Level 3 (45384) Diagnoses History of sleeve gastrectomy Z90.3 Excess skin L98.7 Time Spent (min) 30
[2023-08-14 10:04] VITALS: BMI 24.6
== END 2023-08-14 10:35 | disposition home or self-care (01) ==
LOC: HO.HBS 10:04
PROVIDERS: PCP Nurse Practitioner Family; Visit Provider Physician Assistant Surgical
DX: L98.7 Excessive and redundant skin and subcutaneous tissue (principal); Z90.3 Acquired absence of stomach [part of]; Z98.84 Bariatric surgery status
CPT/HCPCS: 99213

== ENCOUNTER → 2023-08-14 10:04 | Outpatient (BNVA) | payer OTHER, SELFPAY | PROVIDERS: PCP Nurse Practitioner Family; Visit Provider Physician Assistant Surgical ==

== ENCOUNTER 2023-09-25 15:26 | Outpatient (AMB) | payer OTHER, SELFPAY ==
--- NOTE | 2023-09-25 09:33 | MHC.OFFVISWM ---
Intake VS Expanded 09/25/23 15:38 BP 120/72 Blood Pressure Location Rt brachial Blood Pressure Position Sitting Pulse 61 Pulse Source Pulse Oximeter Temp 97.1 F Temperature Source Temporal Artery Scan Pulse Oximetry 99 Oxygen Delivery Method Room Air Height 5 ft 9 in Weight 168 lb 3.2 oz BMI 24.8 Body Fat % 28.3 Body Fat Mass 47.6 Fat Free Mass 120.4 Visceral Fat Rating 6.0 Body Water % 50.9 Body Water Mass 85.6 Muscle Mass/Score 114.2 Basal Metabolic Rate/Score 1,598 Intake Visit Reasons: VIDEO PO LSG 02/07/23 Allergies No Known Allergies [No Known Allergies*] Allergy (Verified 09/25/23 15:37) HPI HPI Comments History of Present Illness Details This?a?52?yo female who is s/p LSG without hiatal hernia repair on?02/07/23. Presents for 7.5 month post op visit. Weight today is 168.2 pounds, with a BMI of 24.8. There has been a 77.2 pound weight loss,(initial weight 245.4 pounds) since starting the program on 10/31/22 reflecting a 31.4% total body weight loss and a weight loss of 45.2 pounds since surgery (operative weight 213.4 pounds) reflecting a 21.1% TBWL since surgery. No complaints of nausea, emesis, abdominal pain or reflux. She has reached a healthy weight but is concerned with the loose skin of her abdomen and her arms. She states the skin of her abdomen is contributing to her depression and she states she has even thought of putting on weight to fill it in . No complaint of rash or pain with activity. Specific to her arms, she does not have pain but it is negatively impacting her mental health. Wants to get back on a routine Present meal plan includes: 3 meals per day, not measuring food quantity ex 1 egg, 1 piece of castro protein and veg same as lunch drinkin-40 oz water ? Exercise routine includes: 3-4 x per week, 350-400 [employer] [facility] Medical History Fatty liver Leg pain, left Lumbar disc herniation IUD (intrauterine device) in place Migraines Anxiety Class 1 obesity due to excess calories with body mass index (BMI) of 30.0 to 30.9 in adult BMI 33.0-33.9,adult Chest wall contusion Abnormal biliary HIDA scan JUAN (obstructive sleep apnea) PVC (premature ventricular contraction) Atrial myxoma Family history of polyps in the colon Right sided abdominal pain Thrombocytopenia Surgical History Hx of laparoscopic partial gastrectomy Hx of tubal ligation 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 History of esophagogastroduodenoscopy (EGD) H/O excision of mass (~03/16/16) History of ear surgery (~2015) Hx of colonoscopy (~05/2018) History of open heart surgery (~03/16/16) Hx of section (~1986) Family History Mother CVD (cardiovascular disease) Obesity Father Colon polyp Daughter Thyroid disease Maternal Grandfather Stomach cancer Diabetes Social History Household Members: Family Household Members Other:: adult son Housing: House Are you a primary youth care specialist to a significant other at home: No Do you presently have visiting nurse or other home services: No Alcohol intake: former Patient Tobacco Use Status: Never used Tobacco e-Cigarette/Vaping Use: Never Used Second Hand Smoke Exposure: No service: No Current occupational status: employed Cognitive needs: No Hearing needs: No Vision needs: No Physical Exam Const General: healthy appearing and no acute distress Resp Effort & Inspection: normal respiratory effort Auscultation: clear to auscultation bilaterally Cardio Rate: regular rate Rhythm: regular rhythm GI Auscultation: normal bowel sounds Extrem General: Yes normal to inspection Assessment & Plan Assessment & Plan (1) History of sleeve gastrectomy: Code(s): Z90.3 - Acquired absence of stomach [part of] Plan: She wishes to start a new meal plan. Shake in the morning with either celebrate 4 in 1, 1 scoop or Orgain, 1 scoop Celebrate protein bar Meal with 6 forks of protein and for forks of vegetables Another meal Half cup of fruit between lunch and dinner or after dinner if she wishes. Increase water to 48-64 oz daily. Return to the gym with a goal of burning 2000 calories per week. Return to the office when she returns to the area for her 1 year f/u Coding Level of Care Code Est Pt Level 3 (25863) Diagnoses History of sleeve gastrectomy Z90.3
[2023-09-25 15:38] VITALS: BP 120/72; PULSE 61; TEMP 36.2; O2SAT 99; BMI 24.8
== END 2023-09-25 16:20 | disposition home or self-care (01) ==
PROVIDERS: PCP Nurse Practitioner Family; Visit Provider Physician Assistant Surgical
DX: Z71.3 Dietary counseling and surveillance (principal); Z68.24 Body mass index [BMI] 24.0-24.9, adult; Z90.3 Acquired absence of stomach [part of]; Z98.84 Bariatric surgery status
CPT/HCPCS: 99213

== ENCOUNTER → 2023-09-25 15:26 | Outpatient (BNVA) | payer OTHER, SELFPAY | PROVIDERS: PCP Nurse Practitioner Family; Visit Provider Physician Assistant Surgical ==

== ENCOUNTER 2024-01-12 07:13 | Outpatient (REF) | payer OTHER, SELFPAY ==
[2024-01-12 07:34] LABS: MANUAL DIFF FLAG NO
[2024-01-12 07:50] LABS: Basophils Absolute Auto 0.1 X10*3/uL (0.0-0.2); Eosinophils Absolute Auto 0.2 X10*3/uL (0.0-0.4); Eosinophils Percent Auto 4.1 % (0-4); Hematocrit 45.5 % (37.0-47.0); Hemoglobin 15.5 g/dl (12.0-16.0); Imm Gran Abs Auto 0.01 X10*3/uL (0.00-0.03); Imm Gran Pct Auto 0.2 % (0.0-0.4); Lymphocytes Absolute Auto 1.8 X10*3/uL (1.2-4.9); Lymphocytes Percent Auto 30.5 % (20-40); Mean Corpuscular HGB Conc 34.1 g/dl (31.0-35.0); Mean Corpuscular Hemoglobin 29.9 pg (27.0-33.0); Mean Corpuscular Volume 87.8 fL (80.0-98.0); Mean Platelet Volume 12.4 fL (9.4-12.3); Monocytes Absolute Auto 0.6 X10*3/uL (0.1-1.2); Neutrophils Absolute Auto 3.1 x10*3/uL (2.0-8.3); Neutrophils Percent Auto 53.2 % (45-73); Platelet Count 204 X10*3/uL (160-400); Red Blood Count 5.18 X10*6/uL (4.20-5.50); Red Cell Distribution Width 13.6 % (11.0-16.0); White Blood Count 5.8 X10*3/uL (4.8-10.8)
[2024-01-12 08:00] LABS: Estimated Average Glucose 97 mg/dL
[2024-01-12 08:22] LABS: Anion Gap 11 (12-20); Blood Urea Nitrogen 13 mg/dL (9-16); C Reactive Protein 0.31 mg/dL (< or = 0.50); Calcium 9.8 mg/dL (8.4-10.2); Carbon Dioxide 29 mmol/L (22-29); Chloride 107 mmol/L (96-108); Cholesterol 155 mg/dL (<200); Estimated Glomerular Filt Rate > 60; Glucose Random 84 mg/dL (60-115); HDL Cholesterol 45 mg/dL (>40); Iron 41 mcg/dL (30-160); LDL Cholesterol Calculated 100 mg/dL (<100); Percent Iron Saturation 18 % (15-50); Sodium 143 mmol/L (135-145); Total Iron Binding Capacity 222 mcg/dL (228-428); Triglycerides 50 mg/dL (<150); Unsaturated Iron Binding 181 ug/dL
[2024-01-12 08:40] LABS: Ferritin 195 ng/mL (10-250); Insulin 5 uU/mL (2-29); TSH reflex Free T4 3.03 uIU/mL (0.32-4.0); Vitamin D 25-OH Total 34.8 ng/mL (>30)
[2024-01-12 08:41] LABS: Appearance Urine Cloudy; Color Urine Yellow; Glucose Urine UA Negative (Negative); Leukocyte Esterase Urine Moderate (2+) (Negative); Nitrite Urine Negative (Negative); PH 5.5 (5.0-9.0); Specific Gravity - Urine 1.025 (1.005-1.025); UMIC TRIGGER UACC YES; Urine Blood Negative (Negative); Urine Ketones Trace mg/dL (Negative); Urine Protein Trace mg/dL (Neg-Trace)
[2024-01-12 08:56] LABS: Bacteria Urine 2+ (None Seen); Hyaline Casts Urine 0-2 /LPF (0-2); RBC Urine 0-2 /HPF (0-2); UACC Culture Trigger YES; WBC Urine 21-50 /HPF (0-5)
[2024-01-12 08:57] LABS: Folate 6.9 ng/mL (> or = 4.0); Vitamin B12 749 pg/mL (200-900)
[2024-01-15 16:09] LABS: Zinc 61 mcg/dL (60-130)
[2024-01-16 21:49] LABS: Vitamin A 36 mcg/dL (38-98)
[2024-01-19 11:49] LABS: Vitamin B1 14 nmol/L (8-30)
== END 2024-01-12 07:14 | disposition home or self-care (01) ==
LOC: HO.LAB 07:13
PROVIDERS: PCP Nurse Practitioner Family; Visit Provider Physician Assistant Surgical
DX: E55.9 Vitamin D deficiency, unspecified (principal); Z90.3 Acquired absence of stomach [part of]; R53.83 Other fatigue; Z13.1 Encounter for screening for diabetes mellitus
CPT/HCPCS: 36415; 80048; 80061; 81001; 82306; 82607; 82728; 82746; 83036; 83525; 83540; 84425; 84443; 84590; 84630; 85025; 86140; 87086